=== PATIENT | female | born 1995 | race Caucasian/White ===

== ENCOUNTER 2019-12-06 13:47 | Emergency (ER) | payer OTHER, SELFPAY ==
--- NOTE | ~2019-12-06 | XR_ITS ---
EXAMINATION: XR hand RT min 3V EXAM DATE: 12/06/2019 14:07 INDICATION: Initial encounter following injury, with pain of the right hand. TECHNIQUE: Right hand frontal, lateral and oblique projections obtained and reviewed. There is no pr ior study for comparison. FINDINGS: Right metacarpal bones are unremarkable. There are no acute fractures or dislocations iden tified. There is no subcutaneous gas. The soft tissue is unremarkable. There are no radiopaque fo reign bodies. IMPRESSION: No acute osseous findings. Reviewed, dictated and finalized at location B. IMPRESSION: No acute osseous findings.
[2019-12-06 13:49] VITALS: BP 110/63; PULSE 86; RESP 16; TEMP 36.9; O2SAT 100
--- NOTE | 2019-12-06 14:02 | ED.GENADULT ---
HPI - General Adult General Chief complaint: Extremity Injury, Upper Stated complaint: HAND INJURY Time Seen by Provider: 12/06/19 14:03 Source: patient and RN notes reviewed Mode of arrival: ambulatory Limitations: no limitations History of Present Illness HPI narrative: This is a 24 years old female presents to the office for an evaluation of right hand injury prior to arrival. States, She was walking her dog and then her dog took off to run after another dog and drag her along with it. Complain of immediate pain and swollen. She tried ice prior to arrival. She did not take anything for pain. She is right-hand dominant. Tetanus is up-to-date. Related Data Home Medications Medication Instructions Recorded Confirmed amoxicillin 500 mg PO Q12H 12/06/19 12/06/19 Allergies Allergy/AdvReac Type Severity Reaction Status Date / Time No Known Allergies Allergy Verified 12/06/19 13:58 Review of Systems Review of Systems: Narrative: CONSTITUTIONAL: Denies feeling ill CARDIOVASCULAR: Denies chest pain RESPIRATORY: Denies dyspnea GASTROINTESTINAL: Denies nausea SKIN: Reports right and swollen with redness. MUSCULOSKELETAL: Reports right hand pain. Denies wrist pain NEUROLOGIC: Denies numbness or tingling. PMFSH Social History Social History (Updated 12/06/19 @ 14:03 by ANAIS Mason) Smoking status: Never smoker Comments At time of signature, I agree with nursing past medical, surgical, social and family history. There is no relevant family history pertinent to the presenting complaint. Exam Narrative: Exam Narrative: GENERAL: This is a well-nourished, well-developed patient, in no apparent distress. CARDIOVASCULAR: Regular rate and rhythm without murmurs, gallops, or rubs. RESPIRATORY: Clear to auscultation. Breath sounds equal bilaterally. No wheezes, rales, or rhonchi. NEURO: awake, alert, and oriented to person, place and time. There were no obvious focal neurologic abnormalities. Steady gait EXTREMITIES: The dorsum of right hand is diffusely swollen and tender especially around distal second metalcarpal joint. There is small skin abrasion noted on dorsal of fifth distal metalcarpal. Flexion and extension of the fingers is full and strong. Normal wrist ROM. [place] Coma Scale Eye Opening: Spontaneous 4 [place] Coma Scale Motor: Obeys Commands 6 Diann Coma Scale Verbal: Oriented 5 Course Vital Signs Vital signs: Vital Signs Temperature 98.4 F 12/06/19 13:49 Pulse Rate 86 12/06/19 13:49 Respiratory Rate 16 12/06/19 13:49 Blood Pressure 110/63 12/06/19 13:49 Pulse Oximetry 100 12/06/19 13:49 Temperature 98.4 F 12/06/19 13:49 Pulse Rate 86 12/06/19 13:49 Respiratory Rate 16 12/06/19 13:49 Blood Pressure 110/63 12/06/19 13:49 Pulse Oximetry 100 12/06/19 13:49 Medical Decision Making MDM Narrative Medical decision making narrative: Discharge instructions reviewed with patient, as well as provided in writing per nursing staff. The instructions also include specific and strict return/GO TO THE ER as well as f/u information. All questions have been answered, and the patient deny any further questions with discharge and discharge plan. Differential Diagnosis Differential Diagnosis: sprain, strain, contusion, fracture Vital Signs Vital Signs: Vital Signs Temperature 98.4 F 12/06/19 13:49 Pulse Rate 86 12/06/19 13:49 Respiratory Rate 16 12/06/19 13:49 Blood Pressure 110/63 12/06/19 13:49 Pulse Oximetry 100 12/06/19 13:49 Temperature 98.4 F 12/06/19 13:49 Pulse Rate 86 12/06/19 13:49 Respiratory Rate 16 12/06/19 13:49 Blood Pressure 110/63 12/06/19 13:49 Pulse Oximetry 100 12/06/19 13:49 Imaging Data Attestation: I personally reviewed and interpreted this imaging study as follows: Radiologist's impression: EXAMINATION: XR hand RT min 3V EXAM DATE: 12/06/2019 14:07 INDICATION: Initial encounter followi
== END 2019-12-06 14:25 | disposition home or self-care (01) ==
PROVIDERS: Emergency Provider Nurse Practitioner; PCP Internal Medicine
DX: S60.221A Contusion of right hand, initial encounter (principal); X50.0XXA Overexertion from strenuous movement or load, initial encounter; Y93.K1 Activity, walking an animal
CPT/HCPCS: 73130; 99203; G0463

== ENCOUNTER 2024-06-18 12:09 | Outpatient (RCR) | payer OTHER, MEDICAID, SELFPAY ==
[2024-06-18 15:29] LABS: Hematocrit 32.4 % (37.0-47.0); Hemoglobin 10.7 g/dL (12.0-15.0)
[2024-06-18 15:42] LABS: Glucose 1 Hour PP 50gm Dose 154 mg/dL
[2024-06-18 16:23] LABS: HIV 1/2 Ab P24 Ag Result Negative (Negative)
[2024-06-19] MEDS: RHO(D) IMMUNE GLOBULIN 300 MCG/2 ML SYRINGE IM (09:12)
== END 2024-09-16 23:59 | disposition home or self-care (01) ==
LOC: ANHLAB 12:09
PROVIDERS: PCP Internal Medicine; Visit Provider Obstetrics & Gynecology
DX: O36.0130 Maternal care for anti-D [Rh] antibodies, third trimester, not applicable or unspecified (principal)
CPT/HCPCS: 36415; 82947; 85014; 85018; 85461; 86703; 86850; 86900; 86901; 90384; 96372; G0432; J2790

== ENCOUNTER 2024-09-03 12:36 | Outpatient (RCR) | payer OTHER, SELFPAY ==
[2024-08-17 16:53] VITALS: BP 120/88; PULSE 91
[2024-08-20 12:50] VITALS: BP 115/78; PULSE 919
[2024-08-26 12:46] VITALS: BP 118/77; PULSE 90
[2024-08-26 13:00] VITALS: BP 106/74; PULSE 94
[2024-08-26 15:56] VITALS: BP 106/74
--- NOTE | ~2024-09-03 | US_ITS ---
EXAMINATION: US OB BPP wo non-stress DATE: 08/20/2024 12:45 INDICATION: Maternal gestational diabetes during third trimester of . Assess biophysical pro file. TECHNIQUE: Real-time pelvic ultrasound was performed. The interpreting radiologist was not present fo r the study. COMPARISON: None. FINDINGS: There is a single living fetus in vertex presentation. The placenta is anterior and not low-lying. F etal heart rate is 136 beats per minute (bpm). Amniotic fluid volume is subjectively normal with norm al deepest vertical pocket measurement of 6.7 cm. Biophysical profile performed by the technologist: breathing (30 sec sustained breathing in 30 minutes): 2 out of 2 movement (3 gross body movements in 30 minutes): 2 out of 2 tone (one episode of ikrhsxs-mpgkezogn-axnwics limb movement): 2 out of 2 Amniotic fluid pocket (2 cm): 2 out of 2 Total score: 8 out of 8 IMPRESSION: 1. Single living fetus in vertex presentation with heart rate of 136 bpm. 2. Biophysical profile 8 out of 8. Reviewed, dictated and finalized at location A. UNTANT CERTIFIED PUBLIC
--- NOTE | ~2024-09-03 | US_ITS ---
EXAMINATION: US OB BPP wo non-stress DATE: 08/26/2024 14:32 INDICATION: Maternal gestational diabetes during third trimester TECHNIQUE: Real-time pelvic ultrasound was performed. The interpreting radiologist was not present fo r the study. COMPARISON: 08/20/2024 FINDINGS: There is a single living fetus in vertex presentation. The placenta is anterior. heart rate is 131 beats per minute (bpm). Amniotic fluid volume is subjectively normal with normal deepest vertica l pocket measurement of 4.6 cm. Biophysical profile performed by the technologist: breathing (30 sec sustained breathing in 30 minutes): 2 out of 2 movement (3 gross body movements in 30 minutes): 2 out of 2 tone (one episode of cjljcaz-xnnhjtcvt-vrtbizi limb movement): 2 out of 2 Amniotic fluid pocket (2 cm): 2 out of 2 Total score: 8 out of 8 IMPRESSION: 1. Single living fetus in vertex presentation with heart rate of 131 bpm. 2. Biophysical profile 8 out of 8. Reviewed, dictated and finalized at location B. 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
--- NOTE | ~2024-09-03 | US_ITS ---
EXAMINATION: US OB BPP wo non-stress DATE: 09/03/2024 14:26 INDICATION: Maternal gestational diabetes TECHNIQUE: Real-time pelvic ultrasound was performed. The interpreting radiologist was not present fo r the study. COMPARISON: None. FINDINGS: There is a single living fetus in vertex presentation. The placenta is anterior. heart rate is 142 beats per minute (bpm). Amniotic fluid volume is subjectively normal with normal deepest vertica l pocket measurement of 6.2 cm. Biophysical profile performed by the technologist: breathing (30 sec sustained breathing in 30 minutes): 2 out of 2 movement (3 gross body movements in 30 minutes): 2 out of 2 tone (one episode of folkmob-npmdlcjig-ecyjyiu limb movement): 2 out of 2 Amniotic fluid pocket (2 cm): 2 out of 2 Total score: 8 out of 8 IMPRESSION: 1. Single living fetus in vertex presentation with heart rate of 142 bpm. 2. Biophysical profile 8 out of 8. Reviewed, dictated and finalized at location B. 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
[2024-09-03 13:15] VITALS: BP 121/78; PULSE 94
== END 2024-09-11 16:02 | disposition home or self-care (01) ==
LOC: ANHOBOP 12:36
PROVIDERS: PCP Internal Medicine; Visit Provider Obstetrics & Gynecology
DX: O36.0130 Maternal care for anti-D [Rh] antibodies, third trimester, not applicable or unspecified (principal); O24.419 Gestational diabetes mellitus in pregnancy, unspecified control; Z3A.36 36 weeks gestation of pregnancy; Z3A.37 37 weeks gestation of pregnancy; Z3A.38 38 weeks gestation of pregnancy
CPT/HCPCS: 59025; 76819

== ENCOUNTER 2024-09-06 16:13 | Inpatient (IN) | payer OTHER, SELFPAY ==
[2024-09-06] VITALS (11 sets, daily range): BP systolic 89–131; BP diastolic 50–88; PULSE 83–107; BMI 37.0
[2024-09-06 17:27] LABS: Basophils Percent Auto 0.2 % (0.2-1.2); Eosinophils Absolute Auto 0.1 K/mm3 (0-0.3); Eosinophils Percent Auto 0.7 % (0-4.4); Hematocrit 32.5 % (37.0-47.0); Lymphocytes Absolute Auto 1.61 K/mm3 (0.9-3.2); Lymphocytes Percent Auto 16.9 % (18.3-44.2); Mean Corpuscular HGB Conc 33.8 g/dl (32-36); Mean Corpuscular Volume 88.6 fl (80-100); Mean Platelet Volume 11.3 fl (7.4-10.4); Monocytes Absolute Auto 0.7 K/mm3 (0.1-0.6); Monocytes Percent Auto 7.3 % (2.6-8.5); Neutrophils Percent Auto 73.9 % (45.5-73.1); Platelet Count Result 213 k/mm3 (150-375); Red Blood Count 3.67 M/mm3 (4.2-5.4); Red Cell Distribution Width 13.9 % (11.5-14.5); White Blood Count 9.5 K/mm3 (4.5-10.0)
[2024-09-06] MEDS: miSOPROStol 25 MCG TABLET 50 MCG BUCCAL ×2 (17:29→21:24)
[2024-09-06 17:33] LABS: Glucose Point of Care 92 mg/dl (65-105)
--- NOTE | 2024-09-06 17:37 | LDADM ---
This patient, Diana Chiu, was admitted to Labor/Delivery/Recovery 102 on 09/06/24 at 16:13. Plans for labor, pain management and were discussed with patient. Patient/family oriented to hospital policies and general routines including ID bracelet, bed and alarms, visiting hours, pain management, procedures, bathroom and other care routines, personal items, smoking policy, room service/diet and guest tray routines, infant security routines, and visiting hours. Patient/Family are encouraged to report perceived risks to care and to ask questions if they do not understand what they are told or what they should do. See OBIX for further documentation.
[2024-09-06 17:58] LABS: Rapid Plasma Reagin Non-Reactive (NonReactive)
[2024-09-06 18:18] LABS: HIV 1/2 Ab P24 Ag Result Negative (Negative)
--- NOTE | 2024-09-06 20:32 | WPDANESEPP ---
Anes - Eval Pre Procedure Procedure: labor pain management Date/Time: 09/06/24 20:32 Surgeon: Ralph Preop Diagnosis: pain during labor Pre Op Diagnosis: IOL / GDM Patient Data Age: 29 Gender: F Height: 1.65 m Weight: 101 kg Last Vital Signs Pulse 89 09/06/24 20:01 BP 121/85 09/06/24 20:01 O2 Del Method Room Air 09/06/24 17:36 Allergies Allergy/AdvReac Type Severity Reaction Status Date / Time No Known Allergies Allergy Verified 08/13/24 12:44 Home Medications ?Medication ?Instructions ?Recorded ?Confirmed ?Type ferrous sulfate 325 mg (65 mg 325 mg PO DAILY 08/13/24 08/13/24 History iron) tablet (Feosol) insulin glargine 100 unit/mL 5 unit subcut QPM gdm 08/13/24 08/13/24 History subcutaneous solution (Lantus U-100 Insulin) vit no.95-ferrous 1 tablet PO DAILY 08/13/24 08/13/24 History fumarate 28 mg-folic acid 800 mcg tablet () Laboratory Tests 09/06/24 09/06/24 17:22 17:26 WBC 9.5 K/mm3 (4.5-10.0) RBC 3.67 L M/mm3 (4.2-5.4) Hgb 11.0 L g/dL (12.0-15.0) Hct 32.5 L % (37.0-47.0) MCV 88.6 fl (80-100) MCH 30.0 pg (26-34) MCHC 33.8 g/dl (32-36) RDW 13.9 % (11.5-14.5) Plt Count 213 k/mm3 (150-375) MPV 11.3 H fl (7.4-10.4) Immature Gran % (Auto) 1.0 H % (0-0.5) Neut % (Auto) 73.9 H % (45.5-73.1) Lymph % (Auto) 16.9 L % (18.3-44.2) [place] % (Auto) 7.3 % (2.6-8.5) Eos % (Auto) 0.7 % (0-4.4) Baso % (Auto) 0.2 % (0.2-1.2) Lymph # (Auto) 1.61 K/mm3 (0.9-3.2) [place] # (Auto) 0.7 H K/mm3 (0.1-0.6) Eos # (Auto) 0.1 K/mm3 (0-0.3) Baso # (Auto) 0.0 K/mm3 (0.0-0.1) Abs Immat Gran (auto) 0.10 H K/mm3 (0.00-0.031) Absolute Neuts (auto) 7.0 H K/mm3 (1.3-6.7) Absolute Nucleated RBC 0.000 K/mm3 (0.0-0.012) Nucleated RBC % 0.0 % (0.0-0.2) POC Capillary Glucose 92 mg/dl (65-105) RPR Non-reactive (NonReactive) HIV 1&2 Ab/P24 Ag 4thGn Negative (Negative) Blood Type AB Negative Antibody Screen Negative Patient hx anesthesia problems: none Family hx anesthesia problems: none Results Review: All pre-operative results and documents have been reviewed as part of the pre-operative evaluation. 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 History of tonsillectomy Family History Family History Grandparent Breast cancer Maternal grandmother Cervical cancer paternal grandmother Social History Social History Smoking status: Never smoker Second hand tobacco smoke exposure: No Substance use: current Do You Feel Safe in your Home?: Yes Lack of Transportation: No Lack of Food: Never True Current Housing: I Have Housing Concerned About Future Housing: No Difficulty Paying Gas/Electric Bills: No Difficulty Paying for Meds: No Currently Unemployed: No Education: Trade/Vocational Certificate Difficulty w/ Childcare or Family Care: No Spiritual care concerns: No Exam Day of Procedure 09/06/24 20:32
[2024-09-06 21:27] LABS: Glucose Point of Care 100 mg/dl (65-105)
[2024-09-07] VITALS (324 sets, daily range): BP systolic 80–141; BP diastolic 35–125; PULSE 27–164; TEMP 36.8–38.4; O2SAT 74–100
[2024-09-07] MEDS: fentaNYL CITRATE INJ (*CRX) 100 MCG/2 ML VIAL 50 MCG IV PUSH ×4 (00:59→09:19)
[2024-09-07] MEDS: miSOPROStol 25 MCG TABLET 50 MCG BUCCAL ×2 (01:33→05:33)
[2024-09-07 01:57] LABS: Glucose Point of Care 97 mg/dl (65-105)
[2024-09-07 05:40] LABS: Glucose Point of Care 90 mg/dl (65-105)
[2024-09-07] MEDS: ACETAMINOPHEN 500 MG TABLET 1000 MG PO ×2 (08:15→21:13)
[2024-09-07] MEDS: ONDANSETRON INJ 4 MG/2 ML VIAL IV PUSH (08:49)
--- NOTE | 2024-09-07 08:54 | PM.IMHP ---
H&P: HPI History of Present Illness Date/Time: 09/07/24 08:54 Chief Complaint: gestational diabetes A2 Narrative: Patient is a 29 year old female at 39w1d who presents for medical induction of labor indicated for GDMA2. Her blood glucose has been well controlled on evening lantus. Most recent EFW on 08/02 was 67%, AC 89%. She denies strong contractions, leakage of fluid, or vaginal bleeding. Good movement. Her has been otherwise uncomplicated. 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 History of tonsillectomy Family History Family History Grandparent Breast cancer Maternal grandmother Cervical cancer paternal grandmother Social History Social History Smoking status: Never smoker Second hand tobacco smoke exposure: No Substance use: current Do You Feel Safe in your Home?: Yes Lack of Transportation: No Lack of Food: Never True Current Housing: I Have Housing Concerned About Future Housing: No Difficulty Paying Gas/Electric Bills: No Difficulty Paying for Meds: No Currently Unemployed: No Education: Trade/Vocational Certificate Difficulty w/ Childcare or Family Care: No Spiritual care concerns: No Meds Home Medications and Allergies Home Medications ?Medication ?Instructions ?Recorded ?Confirmed ?Type ferrous sulfate 325 mg (65 mg 325 mg PO DAILY 08/13/24 08/13/24 History iron) tablet (Feosol) insulin glargine 100 unit/mL 5 unit subcut QPM gdm 08/13/24 08/13/24 History subcutaneous solution (Lantus U-100 Insulin) vit no.95-ferrous 1 tablet PO DAILY 08/13/24 08/13/24 History fumarate 28 mg-folic acid 800 mcg tablet () Allergies Allergy/AdvReac Type Severity Reaction Status Date / Time No Known Allergies Allergy Verified 08/13/24 12:44 Vital Signs Vital Signs - 24 hr 09/06/24 16:45 09/06/24 17:00 09/06/24 17:16 Temperature Pulse Rate 96 97 90 Blood Pressure 116/76 131/88 110/75 Pulse Oximetry Oxygen Delivery 09/06/24 17:30 09/06/24 17:36 09/06/24 18:01 Temperature Pulse Rate 90 107 H Blood Pressure 119/85 89/50 L Pulse Oximetry Oxygen Delivery Room Air 09/06/24 18:47 09/06/24 19:00 09/06/24 20:01 Temperature Pulse Rate 83 88 89 Blood Pressure 111/79 118/88 121/85 Pulse Oximetry Oxygen Delivery 09/06/24 21:01 09/06/24 22:01 09/06/24 23:01 Temperature Pulse Rate 91 91 86 Blood Pressure 128/87 109/75 109/64 Pulse Oximetry Oxygen Delivery 09/07/24 00:01 09/07/24 01:01 09/07/24 02:00 Temperature 98.6 F Pulse Rate 93 87 Blood Pressure 118/79 123/81 Pulse Oximetry Oxygen Delivery 09/07/24 02:01 09/07/24 02:54 09/07/24 02:59 Temperature Pulse Rate 88 Blood Pressure 110/66 Pulse Oximetry 98 97 Oxygen Delivery 09/07/24 03:01 09/07/24 03:04 09/07/24 03:09 Temperature Pulse Rate 84 Blood Pressure 118/86 Pulse Oximetry 97 97 Oxygen Delivery 09/07/24 03:14 09/07/24 03:19 09/07/24 03:24 Temperature Pulse Rate Blood Pressure Pulse Oximetry 98 97 96 Oxygen Delivery 09/07/24 03:29 09/07/24 03:34 09/07/24 03:39 Temperature Pulse Rate Blood Pressure Pulse Oximetry 96 96 96 Oxygen Delivery 09/07/24 03:44 09/07/24 03:49 09/07/24 03:54 Temperature Pulse Rate Blood Pressure Pulse Oximetry 97 96 96 Oxygen Delivery 09/07/24 03:59 09/07/24 04:01 09/07/24 04:04 Temperature Pulse Rate 96 Blood Pressure 116/74 Pulse Oximetry 96 96 Oxygen Delivery 09/07/24 04:09 09/07/24 04:14 09/07/24 04:19 Temperature Pulse Rate Blood Pressure Pulse Oximetry 97 96 96 Oxygen Delivery 09/07/24 04:24 09/07/24 04:29 09/07/24 04:34 Temperature Pulse Rate Blood Pressure Pulse Oximetry 96 96 96 Oxygen Delivery 09/07/24 04:39 09/07/24 04:44 09/07/24 04:51 Temperature Pulse Rate Blood Pressure Pulse Oximetry 95 96 97 Oxygen Delivery 09/07/24 04:56 09/07/24 05:01 09/07/24 05:06 Temperature Pulse Rate 95 Blood Pressure 116/92 H Pulse Oximetry 97 100 97 Oxygen Delivery 09/07/24 05:11 09/07/24 05:16 09/07/24 05:21 Temperature Pulse Rate Blood Pressure Pulse Oximetry 99 98 99 Oxygen Delivery 09/07/24 05:26 09/07/24 05:31 09/07/24 05:36 Temperature Pulse Rate Blood Pressure Pulse Oximetry 99 100 100 Oxygen Delivery 09/07/24 05:41 09/07/24 05:46 09/07/24 05:51 Temperature Pulse Rate Blood Pressure Pulse Oximetry 98 98 98 Oxygen Delivery 09/07/24 05:56 09/07/24 06:01 09/07/24 06:08 Temperature Pulse Rate Blood Pressure Pulse Oximetry 98 98 100 Oxygen Delivery 09/07/24 06:13 09/07/24 06:18 09/07/24 06:23 Temperature Pulse Rate Blood Pressure Pulse Oximetry 99 99 99 Oxygen Delivery 09/07/24 06:28 09/07/24 06:39 09/07/24 06:42 Temperature 98.3 F Pulse Rate Blood Pressure Pulse Oximetry 99 97 Oxygen Delivery 09/07/24 06:44 09/07/24 06:49 09/07/24 06:54 Temperature Pulse Rate Blood Pressure Pulse Oximetry 98 98 95 Oxygen Delivery 09/07/24 06:59 09/07/24 07:01 09/07/24 07:04 Temperature Pulse Rate 87 Blood Pressure 123/77 Pulse Oximetry 96 96 Oxygen Delivery 09/07/24 07:09 09/07/24 07:14 09/07/24 07:19 Temperature Pulse Rate Blood Pressure Pulse Oximetry 97 98 97 Oxygen Delivery 09/07/24 07:24 09/07/24 07:29 09/07/24 07:34 Temperature Pulse Rate Blood Pressure Pulse Oximetry 97 97 98 Oxygen Delivery 09/07/24 07:39 09/07/24 07:44 09/07/24 07:49 Temperature Pulse Rate Blood Pressure Pulse Oximetry 97 97 97 Oxygen Delivery 09/07/24 07:54 09/07/24 07:59 09/07/24 08:01 Temperature Pulse Rate 90 Blood Pressure 127/70 Pulse Oximetry 95 96 Oxygen Delivery 09/07/24 08:04 09/07/24 08:09 09/07/24 08:14 Temperature Pulse Rate Blood Pressure Pulse Oximetry 94 94 96 Oxygen Delivery 09/07/24 08:20 09/07/24 08:25 09/07/24 08:30 Temperature Pulse Rate Blood Pressure Pulse Oximetry 97 99 97 Oxygen Delivery 09/07/24 08:35 09/07/24 08:40 09/07/24 08:45 Temperature Pulse Rate Blood Pressure Pulse Oximetry 97 98 99 Oxygen Delivery 09/07/24 08:50 Temperature Pulse Rate Blood Pressure Pulse Oximetry 99 Oxygen Delivery Exam Const: General: comfortable and no acute distress HENMT: Mouth: Yes moist mucous membranes Neck: Neck: supple Resp: Effort & Inspection: normal respiratory effort Cardio: Rate: regular rate : Other: SVE /-3, dueñas bulb placed without issue and inflated with 50cc of normal saline Extrem: General: normal to inspection Psych: Mental Status: mental status grossly normal H&P: Results Labs Labs: Short CBC 09/06/24 Range/Units 17:22 WBC 9.5 (4.5-10.0) K/mm3 Hgb 11.0 L (12.0-15.0) g/dL Hct 32.5 L (37.0-47.0) % Plt Count 213 (150-375) k/mm3 Assessment and Plan Assessment and plan (1) Gestational diabetes: Code(s): O24.419 - Gestational diabetes mellitus in , unspecified control Status: Acute Assessment and Plan: - good glycemic control - EFW 67% on 08/02 - plan for q4 > q2 blood sugar checks (2) Encounter for induction of labor: Code(s): Z34.90 - Encounter for supervision of normal , unspecified, unspecified trimester Status: Acute Assessment and Plan: - s/p cytotec x4 - SVE 50/-3 - dueñas bulb placed and inflated without issue - plan for pitocin per protocol once cytotec is completed
[2024-09-07] MEDS: LACTATED RINGERS 1,000 ML 125 ML IV CONT ×2 (09:29→20:45)
[2024-09-07 10:21] LABS: Glucose Point of Care 101 mg/dl (65-105)
[2024-09-07] MEDS: OXYTOCIN 30 UNITS/NS 500 ML 30 UNITS/500 ML BAG IV CONT (10:43)
--- NOTE | 2024-09-07 12:34 | PM.OBPNLAB ---
Pain Control Date/time seen: 09/07/24 12:34 Pain control: epidural Pelvic Exam Dilation (cm): 2 Effacement (%): 50 station: -2 Amniotic membrane status: Ruptured (clear fluid, IUPC placed without issue) Status status: Category l Assessment and Plan Pitocin rate (mU/min): 6 Assessment: induction ongoing Plan: continuous present management
[2024-09-07 12:36] LABS: Glucose Point of Care 75 mg/dl (65-105)
[2024-09-07 16:11] LABS: Glucose Point of Care 129 mg/dl (65-105)
[2024-09-07 19:33] LABS: Glucose Point of Care 66 mg/dl (65-105)
[2024-09-07 20:16] LABS: Glucose Point of Care 81 mg/dl (65-105)
--- NOTE | 2024-09-07 21:06 | PM.OBPNLAB ---
Pain Control Date/time seen: 09/07/24 21:06 Pain control: tolerating well and epidural Pelvic Exam Dilation (cm): 6 Effacement (%): 90 station: -2 Amniotic membrane status: Leaking Comments: Band of scar tissue at external os, manually reduced; 5cm at beginning of exam, stretchy 6cm at end of exam Contractions Monitor mode: Internal Contraction frequency: 3 Contraction duration: 1 Contraction pattern: Regular Contraction intensity: Strong/Firm Status status: Category ll Comments: tachycardic but maintains moderate variability and accelerations Assessment and Plan Pitocin rate (mU/min): 6 Assessment: active labor Plan: continuous present management Comments: Temp 100.2, will give tylenol for rising maternal temp and tachycardia
--- NOTE | 2024-09-07 23:24 | P.PCNOB_ITS ---
OB - Vaginal Delivery Note Procedure Delivery date: 09/07/24 Events: Gestational Diabetes (A2) Induction method: Per Misoprostol Protocol Delivery augmentation: Rupture of Membranes, Pitocin and Other (dueñas bulb placement) Delivery monitor: External FHT and Internal Uterine Route of delivery: Episiotomy description: None Laceration Description: Periurethral (hemostatic x2) and Perineal - 2nd Degree Delivery repair: vicryl Specimen: No Quantitative Blood Loss (ml): 150 Anesthesia type: Epidural Disposition: Floor Complications: No immediate complications Narrative: See H&P and notes for details on patient's admission and labor. She progressed to complete cervical dilation and at the appropriate time began pushing. With adequate expulsive efforts by the mother, the baby's head was delivered and a turtle sign was identified. Nuchal cord was present x1. The baby's left shoulder was anterior but did not easily deliver. A shoulder dystocia was identified and relieved with Kaden position and suprapubic pressure. The anterior shoulder then delivered after 20 seconds. The posterior shoulder and the rest of the baby then delivered without difficulty. The umbilical cord was doubly clamped and cut immediately. Care of the was then assumed by the nursing staff. Rosamond Baby Date of : 09/07/24 Gestational Age by Date: 39 gender: Male Weight (pounds): 7 Weight (ounces): 10 presentation: vertex position: Left Occiput Anterior Placenta delivery description: Expressed Cord Vessel Description: 3 Vessels, Nuchal Cord (x1) and Clamped/Cut
[2024-09-07] MEDS: OXYTOCIN 30 UNITS/NS 500 ML 30 UNITS/500 ML BAG 125 UNITS IV CONT (23:50)
[2024-09-08 00:16] VITALS: BP 146/81; PULSE 105
[2024-09-08 00:31] VITALS: BP 122/82; PULSE 110
[2024-09-08] MEDS: WITCH HAZEL 40 PADS 1 PAD TOPICAL (01:12)
[2024-09-08] MEDS: BENZOCAINE 20% AER SPR (*SP) 56 GM CAN 1 SPRAY TOPICAL (01:12)
[2024-09-08] MEDS: IBUPROFEN 600 MG TABLET PO ×4 (01:13→19:30)
--- NOTE | 2024-09-08 01:29 | OBPPTRN ---
Patient transferred to post room #285 via wheelchair. Support person present. patient refuses education at this time, due to being extremely exhausted, will defer to dayshift.
[2024-09-08 01:35] VITALS: BP 135/79; PULSE 103; RESP 20; TEMP 37.3; O2SAT 100
--- NOTE | 2024-09-08 04:20 | OBPPTRN ---
Patient is more awake and willing to accept education now. Patient and mother (support person) Oriented to unit, room, information board, rooming in, admission packet and security measures. Patient verbalizes understanding.
[2024-09-08 05:49] LABS: Hemoglobin 10.4 g/dL (12.0-15.0)
[2024-09-08 06:55] VITALS: BP 112/68; PULSE 96; RESP 16; TEMP 36.3
[2024-09-08] MEDS: MULTIVIT/MIN/PREN/FOL AC/IRON TABLET 1 TAB PO (07:01)
--- NOTE | 2024-09-08 08:25 | PC.NURSE ---
Introductions were made, then consulted with patient to assess needs related to . Mother led the conversation with her?plans to feed?her infant and the?experience so far. Infant given supplementation overnight - maternal request. Mother states that she plans to breastfeed and has done plenty of research related to , she declines additional education at this time. She intends to use her own personal breast pump once she is home and declines needing assistance or education in relation to her breast pump. If questions arise, she will contact for assistance. Mother is utilizing [facility] currently and declines needing a referral. Breast feeding admission folder was provided and reviewed. Mother states that she will call with the next feeding so this RN can observe latch. She denies any breast or nipple pain at this time. Mother voiced understanding of skin to skin, stimulating with massage touch, responsive feedings, hand expressed colostrum, talking to infant to encourage if it has been 2 -2.5 hours since the start of the last , to call if does not latch, or if there is discomfort with .
--- NOTE | 2024-09-08 14:29 | WPDANLDPN2 ---
Anes-Prog Note L&D Date/Time: 09/08/24 14:29 Comfortable throughout: labor and delivery Neuraxial method: epidural Epidural/Spinal procedure site: clean & non-tender Neuro status: Neuro function grossly intact. Cardiovascular status: normal Respiratory status: normal Airway patency: baseline Mental status: baseline Post-Op hydration status: normal Vital Signs: Last Vital Signs Temp 36.3 C L 09/08/24 06:55 Pulse 96 09/08/24 06:55 Resp 16 09/08/24 06:55 BP 112/68 09/08/24 06:55 Pulse Ox 100 09/08/24 01:35 O2 Del Method Room Air 09/08/24 01:35 Pain score (VAS): 3/10 I/O: Intake & Output 09/07/24 09/08/24 09/08/24 23:59 07:59 15:59 Intake Total 1000 Output Total 150 80 Balance 850 -80 Post-procedural complaints: none Patient feedback: Patient satisfied with anesthetic care.
[2024-09-08] MEDS: RHO(D) IMMUNE GLOBULIN 300 MCG/2 ML SYRINGE IM (17:49)
[2024-09-08 19:30] VITALS: BP 130/86; PULSE 101; RESP 18; TEMP 37.1; O2SAT 99
[2024-09-09] MEDS: IBUPROFEN 600 MG TABLET PO (04:10)
--- NOTE | 2024-09-09 08:05 | PC.NURSE ---
Consulted with mother concerning needs and she shared her ability to independently latch infant optimally without pain. Mother is feeding appropriately for growth of and understands stimulating to eat if needed. Infant has had appropriate feedings in the last 24 hours meets the outcomes for weight, output, blood sugar and jaundice at this time. Reinforced understanding of milk production, transition of milk, signs of adequate intake, transition of stool, prevention/relief of engorgement, plugged ducts, mastitis, responsive watching for feeding cues, the different methods of stimulating to breastfeed 1-3 hours after the start of the last feeding, community resources, and when to call a provider using the resource of the feeding sheet along with the mom and baby guide. Mother voiced understanding of the information shared, is confident to continue effectively her infant at home, when to call for assistance, denies any additional assistance or education at this time. Reported to the Primary RN.
--- NOTE | 2024-09-09 08:28 | P.PNOB_ITS ---
OB - PN: Subj Subjective Date/time seen: 09/09/24 08:28 Patient comments: no complaints, pain well controlled and tolerating diet OB - PN: Obj Data Labs 09/08/24 05:44 Labs: Laboratory Results - last 24 hr 09/08/24 07:10 Blood Type AB Negative Antibody Screen Negative Screen Negative Baby's Blood Type A pos Baby's MELISSA Negative Doses of RhIg Required 1 OB - PN A/P Plan day: 2 Plan: routine care and discharge home Time Spent With Patient Time: Total time spent is greater than 50% in coordination of care (as documented) at patient's floor/unit and/or counseling patient: Exam 2 Const: General: comfortable and no acute distress Resp: Effort & Inspection: normal respiratory effort Auscultation: no rales, no rhonchi and no wheezes Cardio: Rate: regular rate Heart sounds: no click, no murmurs and no rubs GI: GI Palp: Yes Soft to palpation and No Tenderness to palpation present (GI) Auscultation: normal bowel sounds Extrem: General: normal to inspection, no pedal edema and no calf tenderness
--- NOTE | 2024-09-09 08:28 | PM.OBDSVD ---
DS: Admitting Diagnosis Discharge Date 09/09/24 Admitting Diagnosis term pregnacy DS: Discharge Diagnosis Discharge Diagnosis (1) Term delivered: Code(s): O80 - Encounter for full-term uncomplicated delivery Status: Acute OB - DS: Summary OB Procedures : None OB Procedures Intrapartum: Spontaneous Vag Delivery OB Procedures: : None Peripartum Data Laceration Description: Periurethral (hemostatic x2) and Perineal - 2nd Degree Episiotomy description: None Time Spent with Patient Time attestation: Total time spent providing and/or coordinating discharge services: DS: Data Data Completed and Pending Labs on day of discharge: Labs from last 24 hours 09/08/24 07:10 Blood Type AB Negative Antibody Screen Negative Screen Negative Baby's Blood Type A pos Baby's MELISSA Negative Doses of RhIg Required 1 Discharge Plan Discharge Discharging Clinician: Cristian Byrd Patient Disposition: Home, Self-Care Activity: pelvic rest Diet: regular Patient Instructions: Antibiotic Form Patient Language: Armenian Stand Alone Forms: General Discharge Information Follow-up/Referrals: Cristian Byrd MD [Physician] - Discharge Medications: Continued PNV [id number]-ferrous fumarate-FA [] 28 mg iron- 800 mcg tablet 1 tablet PO DAILY insulin glargine [Lantus U-100 Insulin] 100 unit/mL solution 5 unit subcut QPM ferrous sulfate [Feosol] 325 mg (65 mg iron) tablet 325 mg PO DAILY Date of admission: 09/06/24 16:13 Primary Care Provider: Consuelo,Judah Shukla Admitting Provider: Hemanth Rosas Attending physician on admission: Hemanth Rosas Condition: Stable
[2024-09-09 09:15] VITALS: BP 110/71; PULSE 93; RESP 18; TEMP 36.4; O2SAT 98
[2024-09-09] MEDS: DOCUSATE SODIUM 100 MG CAPSULE PO (09:16)
[2024-09-09] MEDS: ACETAMINOPHEN 325 MG TABLET 650 MG PO (09:16)
[2024-09-09] MEDS: MULTIVIT/MIN/PREN/FOL AC/IRON TABLET 1 TAB PO (09:16)
--- NOTE | 2024-09-09 11:58 | PC.NURSE ---
Patient viewed the discharge video Mother & Baby Care, The First Two Weeks . Patient was given the opportunity and encouraged to ask questions. Patient verbalized understanding of information shared and has been given the mother/baby guide for home reference.
--- OUTSIDE RECORDS SUMMARY | 2024-09-13 03:16 | XMS_ITS | Data Portability ---
Author Organization [facility] Address [address] [place] [place] [address] Care Team Providers Care Product Responsibility Liaison Name Role Phone SABRINA MOTT Primary Care Provider [phone] Assessment Encounter Date Assessment Date Assessment LastModified by Organization Details LastModified Time 08/26/2024 08/26/2024 Patient is ___weeks . Discussed plan. [email or web address] Not available 08/26/2024 15:57:28 09/03/2024 09/03/2024 Not seen due to urgent patient care Not available 09/03/2024 18:32:15 Plan of Treatment Reminders Order Date Submit Date Provider Last Modified By Organization Details Last Modified Time Details Appointments None record ed. Lab None record ed. Referral None record ed. Procedures None record ed. Surgeries None record ed. Imaging non-st ress test 024 08/13/20 chad [email or web address] [place], [address], [place], [address], 05:56:58 Medication Orders None record ed. Patient TargetsNo targets recorded. Patient InstructionsNo instructions recorded. Reason for Referral None Reported. Results Created Date Observation Date Name Description Value Unit Range Abnormal Flag Note LastModifiedBy Organization Detail LastModifiedTime 08/20/20 24 08/20/2024 CULTU RE: GROUP B STREP SCREE N, REFLE X SUSCE PTIBI LITY result report SEE RESULT S BELOW Test: Cultu re: Group B Strep , Refle x Susce ptibi lity ([facility]/ [facility]/K H/[facility] ) Speci men Sourc e: Vagin a/Rec christi Speci men Type: Vagin al/Re ctal Speci men Date: 08/20 1422 Resul t Date: 08/23 1404 Resul t Statu s: Final resul t Abnor mal: No Resul ting Lab: [facility] [address] [facility] [address] Tel: CULTU RE ----- ----- ----- --- No Group B strep isola carmina at 2 days (sarah ctive broth enhan cemen t) Not Available [facility] (Lab) [address], [place], [address], 08/23/2024 15:08:12 08/02/20 24 08/02/2024 US, obste tric, follo w-up No observ ation record ed. [email or web address] [place] [address], [place], [address], 08/02/2024 10:13:50 08/02/20 24 08/02/2024 US, tj rosales, follo w-up No observ ation record ed. [address], [place], [address], 08/05/2024 20:29:18 08/13/20 24 08/13/2024 non-s tress test No observ ation record ed. [email or web address] [place] [address], [place], [address], 08/13/2024 12:48:12 08/13/20 24 08/13/2024 US, tj rosales bioph ysica l profi le No observ ation record ed. [email or web address] [address], [facility], [place], [address], 08/14/2024 23:23:31 08/13/20 24 08/13/2024 US, obstkeenan rosales, bioph ysica l profi le + non-s tress test No observ ation record ed. [facility] [address], [place], [address], 08/13/2024 17:26:10 08/17/20 24 08/17/2024 non-s tress test No observ ation record ed. [address], [place], [address], 08/19/2024 11:56:26 08/21/20 24 08/21/2024 non-s tress test No observ ation record ed. [address], [place], [address], 08/31/2024 11:25:22 08/26/20 24 08/26/2024 non-s tress test No observ ation record ed. [email or web address] Not Available 2023 11:08:41 09/03/19 25 09/03/2024 non-s tress test No observ ation record ed. [address], [place], [address], 09/06/2024 13:42:56 Result Notes None recorded. Problems Name Problem SNOMED Code Status Onset Date Resolution Date Notes Provider Name and Address Organization Details Recorded Time 30623832 Active 2023 Ashley Lucian [facility], [facility] 4 14:41:40 Marijuana user 395322207 Active +UDS Osiris Lopez [facility] 4 14:12:40 Gestational diabetes mellitus 22876512 Active BS QID, serial growth 12/4 - Lantus 5 units @HS Larissa valdes [facility], [facility] 4 15:11:40 Gestational diabetes mellitus 76810286 Active BS QID, serial growth 12/4 - Lantus 5 units @HS Larissa Rausch eiamara mendez, [facility] 15:11:40 Problem Notes None recorded. Procedures Surgical History Date Name Laterality Status Provider Name and Address Organization Details Recorded Time 09/01/19 19 Date of Last Pap Smear completed [facility] 02/27/2024 14:32:44 09/01/19 04 procedure on knee completed [facility] 02/27/2024 14:36:05 09/01/19 00 Tonsillectomy completed [facility] 02/27/2024 14:36:17 Imaging Results Imaging Date Name Status LastModified by Organiz ation Details LastModified Time 08/02/2024 US, obstetric, follow-up completed [email or web address] [address], [place], [address], 08/02/2024 10:13:50 08/02/2024 US, obstetric, follow-up completed [email or web address] [address], [place], [address], 08/05/2024 20:29:18 08/13/2024 non-stress test completed [email or web address] [place] [address] [address], [place], [address], 08/13/2024 12:48:12 08/13/2024 US, obstetric, biophysical profile completed [email or web address] [address], [place], [address], 08/14/2024 23:23:31 08/13/2024 US, obstetric, biophysical profile + non-stress test completed [facility] [address], [place], [address], 08/13/2024 17:26:10 08/17/2024 non-stress test completed [place] [address], [place], [address], 08/19/2024 11:56:26 08/21/2024 non-stress test completed [place] [address], [place], [address], 08/31/2024 11:25:22 08/26/2024 non-stress test completed [email or web address] [address] Informati on not available 08/31/2024 11:08:41 09/03/2024 non-stress test completed [place] [id number] [facility] [address], [place], [address], 09/06/2024 13:42:56 Procedure Notes None recorded. Medical Equipment None Reported. Allergies No known drug allergies Medications Name Sig Start Date Stop Date Status Note LastModified by Organization Details LastModified Time cefadroxi l 500 mg capsule take 1 capsule by oral route every 12 hours for 10 days 07/26 completed Prescrib ed Elsewher e: No Locat ion: [facility] odify By: steve ghosh DateTime : 07/17/20 16 02:00:00 PM Not Available Not Available Not Available OneTouch Ultra Test strips USE TO TEST 4 TIMES A DAY active Not Available Not Available No t Available June FE 09/20 (28) 1 mg-20 mcg (21)/75 mg (7) tablet TAKE 1 TABLET BY ORAL ROUTE EVERY DAY 10/16 completed Prescrib ed Elsewher e: No Locat ion: [facility] odify By: lawanda cortes DateTime : 09/09/19 17 09:23:26 AM Not Available Not Available Not Available iron active Not Available Not Availa ble Not Available active Not Available Not Avai lable Not Available Lantus Solostar U-100 Insulin 100 unit/mL (3 mL) subcutane ous pen inject 5 units every day by subcutan eous route at bedtime 2023 active Not Available Not Available Not Avai lable Lo Loestrin Fe 1 mg-10 mcg (24)/10 mcg (2) tablet take 1 tablet by oral route every day 03/20 completed Prescrib ed Elsewher e: Yes [facility] By: deandre cortes DateTime : 08/09/20 14 12:00:00 PM Not Available Not Available Not Available TRUEplus Pen Needle 31 gauge x 1/4 USE WITH INSULIN INJECTIO NS DAILY active Not Available Not Available No t Available OneTouch Ultra2 Meter USE TO TEST 4 TIMES A DAY active Not Available Not Available No t Available OneTouch Delica Plus Lancet 33 gauge USE TO TEST 4 TIMES A DAY active Not Available Not Available No t Available Abrysvo (PF) 120 mcg/0.5 mL intramusc ular solution pharmacy to give injectio n active Not Available Not Available No t Available Vitals Date Recorded Body height Body mass index (BMI) Body weight Systolic blood pressure Diastolic blood pressure Provider Name and Address Organization Details Last Updated DateTime 08/13/2024 165.1 cm 37.1 kg/m2 913049.1 g 109 mm[Hg] 75 mm[Hg] [facility] 12:40:27 Date Recorded Body height Body mass index (BMI) Body weight Systolic blood pressure Diastolic blood pressure Provider Name and Address Organization Details Last Updated DateTime 08/20/2024 165.1 cm 37.8 kg/m2 848345.4 7 g 114 mm[Hg] 76 mm[Hg] [facility] 4 14:21:20 Date Recorded Body weight Systolic blood pressure Diastolic blood pressure Provider Name and Address Organization Details Last Updated DateTime 08/26/2024 987258.652 73 g 116 mm[Hg] 79 mm[Hg] Liz Ortega [facility] 08/26/2024 15:59:25 Social History Question Answer Notes LastModified by Organizat ion Details LastModified Time Tobacco Smoking Status Never [facility]oker [facility] 02/27/2024 14:35:43 What Is Your Level Of Alcohol Consumption? Occasional Information not available 02/27/2024 Are You Blind Or Do You Have Difficulty Seeing? No Information n ot available 02/27/2024 What Is Your Level Of Caffeine Consumption? Occasional [email or web address] Information not available 04/20/2024 In The 14 Days Before Symptom Onset, Have You Had Close Contact With A Laboratory-confirm ed COVID-19 While That Case Was Ill? No Information n ot available 02/27/2024 In The 14 Days Before Symptom Onset, Have You Had Close Contact With A Person Who Is Under Investigation For COVID-19 While That Person Was Ill? No Information not available 02/27/2024 Have You Been To An Area Known To Be High Risk For COVID-19? No Information not available 02/27/2024 Are You Deaf Or Do You Have Serious Difficulty Hearing? No Information not available 02/27/2024 What Type Of Diet Are You Following? REGULAR [email or web address] Information n ot available 04/20/2024 Have You Ever Been Counseled For Unhealthy Alcohol Use? No [email or web address] Information not available 04/20/2024 Do You Have Smoke And Carbon Monoxide Detectors In Your Home? Yes [email or web address] Information not available 04/20/2024 Do You Use Any Illicit Or Recreational Drugs? No [email or web address] Information not available 04/20/2024 Do You Use Sunscreen Routinely? Yes [email or web address] Information not available 04/20/2024 Has Tobacco Cessation Counseling Been Provided? No [email or web address] Information not available 04/20/2024 Do You Or Have You Ever Used Any Other Forms Of Tobacco Or Nicotine? No [email or web address] Information not available 04/20/2024 Sex: Unknown Functional Status Question Answer Note LastModified by Organizat ion Details LastModified Time Do you have difficulty walking or climbing stairs? No Information not available 02/27/2024 Are you able to walk? YESWOREST Information not available 02/27/2024 Are you able to care for yourself? Yes Information not available 02/27/2024 Do you have difficulty dressing or bathing? No Information not available 02/27/2024 What is your exercise level? Occasional Information not available 04/20/2024 Mental Status None recorded. Family History Relationship Description Onset Age of this Age Resolved Age Notes LastModified by Organization Details LastModified Time Paternal Grandmother Malignant tumor of breast Not available 2023 14:34:11 Paternal Grandmother Mental disorder Not available 2023 14:35:05 Maternal Grandmother Malignant tumor of cervix Not available 2023 14:34:17 Maternal Grandmother Malignant tumor of ovary [email or web address] Not available 04/20 17:22:27 Paternal Grandfather Malignant tumor of colon Not available 2023 14:34:24 Paternal Grandfather Hypertensive disorder Not available 2023 14:34:37 Paternal Grandfather Mental disorder Not available 2023 14:35:05 Paternal Grandfather Chronic hepatitis [email or web address] Not available 04/20 17:22:55 Mother Hypertensive disorder Not available 2023 14:34:37 Mother Mental disorder Not available 2023 14:35:05 Father Mental disorder Not available 2023 14:35:05 Unspecified Relation Seizure disorder FOB MOTHER [email or web address] Not available 04/20/2024 15:26:35 Notes:Maternal grandmother: Ovarian cancer, Cervical cancer Paternal grandfather: Hepatitis Paternal grandmother: Cancer, breast Medical History Condition Response Allergies (Food, seasonal, environmental ) N Other N Breast Cancer N Drug/Latex Allergies/Reactions N Blood Transfusion N Lung Disease N Dermatologic Disorders N Defects or Inherited Disease N Breast Problem N Gestational Diabetes N Hematologic disorders N Anesthesia Complications N History of STI N Deep Vein Thrombosis N Polycystic ovary syndrome N Anxiety Disorder N Autoimmune disease N Arthritis N Polyps N Infertility N History of abnormal pap N Acid Reflux (GERD) N Cancer N Varicosities N Stroke N Neurologic/Epilepsy N Endometriosis N High Cholesterol N Fibromyalgia N Headaches N Kidney Disease N Heart Problems N Kidney or Bladder Problems N Thyroid Problems N GI Problems N Eating Disorder N Anemia Y Art (IVF or FET) N Psychiatric Illness N Ovarian Cancer N Diabetes N Pulmonary (TB, Asthma) N Hepatitis/Liver Disease N No Past Medical History N Eczema N Urinary Tract Infection N Abuse/Domestic Violence N Asthma N Trauma/Violence N Depression/ depression N Heart Disease N Pre-Eclampsia N Hypertension N Osteoporosis N Thrombophilias N Gynecological History Statement/Question Response Flow Moderate Date of Last Mammogram Date of LMP 12/09/2023 Was last menstrual period normal Y STIs/STDs N HPV Vaccine Y Current Control Method Are cycles usually normal Y Sexually Active? Y Menses Monthly Y Date of DEXA bone scan Age of first menstrual cycle 12 Date of Last Pap Smear 09/01/2018 Sexual Problems? N LMP Definite Obstetrics History GPAL:G 1 P 0 0 0 0 Type Value Living 0 Total 1 Immunizations Vaccine Type Date Status Note Provider Nam e and Address Organization Details Recorded Time Tdap 08/13/2024 completed Phoebe mendez, [facility] 08/20/2024 14:17:19 Influenza, MDCK, trivalent, PF 08/13/2024 completed Phoebe mendez [facility] 08/20/2024 14:17:19 Past Encounters Encounter ID Performer Location Encounter Start Date Encounter Closed Date Diagnosis/Indication Diagnosis SNOMED-CT Code Diagnosis ICD10 Code Diagnosis Note Edith Shabazz [place] [address],[place] [address] 02/27/2024 11:43:38 02/27/2024 13:10:28 [id number] Cristian Byrd MD [place] [address],[place] [address] 02/27/2024 14:13:42 02/27/2024 15:16:46 Routine care 074270955 Z34.90 this patient is a 28-year-ol d multiparou s female at 12 weeks' gestation who presents for initial care. She has a history of term vaginal births. Her medical, surgical, obstetric history is unremarkab le. She is vaccinated . She was given precaution s recommenda tions for . We talked about vaccines in . Talked about care in detail. She is having genetic testing. She had a normal 12 week ultrasound . To begin routine care. [id number] Graciela Owen [place] [address],[facility] [place] [address] 03/08/2024 17:13:31 03/08/2024 17:57:51 screening 417771497 Z36.82 Z3A.13 Z36.87 [id number] Cristian Byrd MD [place] [address],[place] [address] 03/26/2024 09:29:33 03/26/2024 10:32:21 Routine care 783629679 Z34.90 [id number] Cristian Byrd MD [place] [address],[place] [address] 04/20/2024 15:26:30 04/21/2024 09:35:21 [id number] KESHA FIORE MD [place] [address],[place] [address] 04/20/2024 15:27:00 04/20/2024 17:56:47 Routine care 834997252 Z34.02 [id number] MD Jenn BUCHANAN [address],[place] [address] 05/21/2024 12:17:34 05/21/2024 14:26:36 Routine care 886985666 Z34.02 - continue PNV- 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) [id number] KESHA FIORE MD [place] [address],[place] [address] 06/18/2024 12:11:01 06/28/2024 04:03:48 Routine care 226711863 Z34.02 - continue PNV [id number] KESHA FIORE MD [place] [address],[place] [address] 07/02/2024 09:17:01 07/02/2024 10:04:18 Routine care 828941856 Z34.02 - continue PNV- 3h GTT today [id number] KESHA FIORE MD [place] [address],[place] [address] 07/16/2024 09:24:25 07/16/2024 11:05:08 Gestational diabetes mellitus 98268705 O24.419 Gestation period, 31 weeks 84314258 Z3A.31 - continue pNV [id number] Graciela Owen [place] [address],[place] [address] 08/02/2024 09:14:02 08/02/2024 10:35:44 Gestational diabetes mellitus 38317461 O24.410 Z3A.34 [id number] KESHA FIORE MD [place] [address],[place] [address] 08/04/2024 13:56:29 08/04/2024 15:06:05 Active or passive immunization 403198267 Z23 - Rx sent for RSV vaccine Gestationa l diabetes mellitus class A2 00160048 O24.414 - will start lantus at nighttime- weekly testing Gestation period, 34 weeks 28404659 Z3A.34 - continue PNV [id number] Phoebe Johnson [place] [address],[place] [address] 08/13/2024 10:58:31 08/13/2024 13:02:17 Gestational diabetes mellitus 72583763 O24.419 [id number] KESHA FIORE MD [place] [address],[place] [address] 08/13/2024 10:58:55 08/13/2024 17:08:31 Gestational diabetes mellitus class A2 97873984 O24.414 - controlled on lantus 5u qHS- continue weekly testing- plan for delivery by 39w6d Gestation period, 35 weeks 61714929 Z3A.35 [id number] Edith Mele [place] [address],[place] [address] 08/13/2024 10:59:07 08/13/2024 16:49:41 Gestational diabetes mellitus 59249077 O24.414 Z3A.35 [id number] KESHA FIORE MD [place] [address],[place] [address] 08/20/2024 14:06:49 08/20/2024 15:06:34 Gestational diabetes mellitus class A2 30903870 O24.414 - controlled on lantus 5u qHS- continue weekly testing- plan for delivery by 39w6d Gestation period, 36 weeks 47039446 Z3A.36 - GBS collected today- continue PNV [id number] Cristian Byrd MD [place] [address],[place] [address] 08/26/2024 15:32:53 08/26/2024 16:23:00 Routine care 830609414 Z34.90 [id number] KESHA FIORE MD [place] [address] [address] 09/03/2024 15:31:52 09/03/2024 18:32:23 Health Concerns Section Related Observation LastModified by Organization Detai ls LastModified Time None Recorded Concern Status LastModified by Organization Details LastModified Time None Recorded Advance Directives Directive None Recorded Payers Encounter Date Sequence Insurance Name Policy Number Policy Mehta Covered Member ID Mehta Member ID Guarantor Name 08/13/2024 1 [facility] (MEDICAID HMO) [id number] [employer] [id number] [employer] 08/13/2024 1 [facility] (MEDICAID HMO) [id number] [employer] [id number] [employer] 08/20/2024 1 [facility] (MEDICAID HMO) [id number] [employer] [id number] [employer] 08/26/2024 1 [facility] (MEDICAID HMO) [id number] [employer] [id number] [employer] 09/03/2024 1 [facility] (MEDICAID HMO) [id number] [employer] [id number] [employer] OBGyn Episode Ob Episode Information Episode Created Date Number of Fetuses Patient Bloodtype Patient rh Status Prepregnancy Weight lbs Domestic Partner Domestic Partner Phone Father Name 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 24 1 AB Negative 194 OPEN Fetus Data First Name Last Name Admitted to NICU Weight (g) Sex Living Outcome Pediatric Complications Fetus ID Race Codes Race Delivery Type [id number] Problems Problem Notes Problem Name Start Date End Date Resolution Snomed Code Not e Marijuana user 567516359 +UDS Gestational diabetes mellitus 13487143 BS QID, serial ojqvas83/4 - Lantus 5 units @HS Tomas Calculation Initial Tomas Date Initial Exam Date Initial Exam Provider Initial Ultrasound Date Last Menstrual Period Date Ultra Sound Weeks Gestation 09/13/2024 02/27/2024 02/27/2024 12/08/2023 11 Eighteen To Twenty Week Tomas Update Ultra Sound Date Fundal Height At Umbil Quickening Date Ultra Sound Latest Weeks Gestation Final Tomas Confirmed By Final Tomas Confirmed Date Final Tomas Date Ultra Sound Latest Days Gestation 0 [email or web address] 02/27/2024 09/13/19 25 0 Pre-uyen Flowsheet Flowsheet Date 02/27/2024 Newton Score Blood Edema Fundus Height Fundus Units Glucose Ketones Leukocytes Nitrite Labor Signs Protein Cervic Dilation Cervic Effacement Cervic Station Type Weight in lbs Pre/Post Dialysis Refused Weight 194.523947591379 BP Diastolic BP Location Tested BP Systolic BP Type 77 109 Fetus Heart Rate Present A 155 Fetus Movement Comments this patient is a 28-year-ol d multiparous female at 12 weeks' gestation who presents for initial care. She has a history of term vaginal births. Her medical, surgical, obstetric history is unremarkable. She is vaccinated. She was given precautions recommendations for . We talked about vaccines in . Talked about care in detail. She is having genetic testing. She had a normal 12 week ultrasound. To begin routine care. patient has an unremarkable medical, surgical, obstetric history. Flowsheet Date 03/08/2024 Newton Score Blood Edema Fundus Height Fundus Units Glucose Ketones Leukocytes Nitrite Labor Signs Protein Cervic Dilation Cervic Effacement Cervic Station Type Weight in lbs Pre/Post Dialysis Refused BP Diastolic BP Location Tested BP Systolic BP Type Fetus Heart Rate Present Fetus Movement Comments Flowsheet Date 03/26/2024 Newton Score Blood Edema Fundus Height Fundus Units Glucose Ketones Leukocytes Nitrite Labor Signs Protein Cervic Dilation Cervic Effacement Cervic Station neg none none trace Type Weight in lbs Pre/Post Dialysis Refused 192.225529074898 BP Diastolic BP Location Tested BP Systolic BP Type 83 L arm 119 sitting Fetus Heart Rate Present A 145 Fetus Movement A No Comments Pateint c/o of nausea resolv ing, no cramping, no bleeding Flowsheet Date 04/20/2024 Newton Score Blood Edema Fundus Height Fundus Units Glucose Ketones Leukocytes Nitrite Labor Signs Protein Cervic Dilation Cervic Effacement Cervic Station Type Weight in lbs Pre/Post Dialysis Refused BP Diastolic BP Location Tested BP Systolic BP Type Fetus Heart Rate Present Fetus Movement Comments Flowsheet Date 04/20/2024 Newton Score Blood Edema Fundus Height Fundus Units Glucose Ketones Leukocytes Nitrite Labor Signs Protein Cervic Dilation Cervic Effacement Cervic Station trace Type Weight in lbs Pre/Post Dialysis Refused 196.101490678251 BP Diastolic BP Location Tested BP Systolic BP Type 77 115 Fetus Heart Rate Present A 159 Fetus Movement A No Comments Patient states that is havin g some swelling and carpal tunnel pain. No movement yet. No cramping or bleeding. Anatomy complete and normal, EFW 76%. Normal raphael. RTC 4 weeks for routine care. Flowsheet Date 05/21/2024 Newton Score Blood Edema Fundus Height Fundus Units Glucose Ketones Leukocytes Nitrite Labor Signs Protein Cervic Dilation Cervic Effacement Cervic Station neg none none trace Type Weight in lbs Pre/Post Dialysis Refused 203.68518187985 BP Diastolic BP Location Tested BP Systolic BP Type 69 L arm 100 sitting Fetus Heart Rate Present A 140 Fetus Movement A Yes Comments Good movement. No cram ping or bleeding. Discussed labs and GCT for next visit, will go to [place] for labs and Rhogam. Carpal tunnel improving. 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 RTC 4 weeks. Flowsheet Date 06/18/2024 Newton Score Blood Edema Fundus Height Fundus Units Glucose Ketones Leukocytes Nitrite Labor Signs Protein Cervic Dilation Cervic Effacement Cervic Station neg none none trace Type Weight in lbs Pre/Post Dialysis Refused 213.086085531893 BP Diastolic BP Location Tested BP Systolic BP Type 80 L arm 113 sitting Fetus Heart Rate Present A 140 Fetus Movement A Yes Comments C/o of lower abdomen pain, m ild. Good movement, no cramping or bleeding. Orders given for GCT and labs with Rhogam. Discussed tdap vaccine. RTC 2 weeks. Flowsheet Date 07/02/2024 Newton Score Blood Edema Fundus Height Fundus Units Glucose Ketones Leukocytes Nitrite Labor Signs Protein Cervic Dilation Cervic Effacement Cervic Station neg none none trace Type Weight in lbs Pre/Post Dialysis Refused Weight 214.718183904870 BP Diastolic BP Location Tested BP Systolic BP Type 76 L arm 110 sitting Fetus Heart Rate Present A 135 Fetus Movement A Yes Comments Patient c/o of some contract ions and swelling in feet. Good movement. 3h GTT today, discussed anemia and starting Fef supplement. Will recheck in 1 month. RTC 2 weeks. Flowsheet Date 07/16/2024 Newton Score Blood Edema Fundus Height Fundus Units Glucose Ketones Leukocytes Nitrite Labor Signs Protein Cervic Dilation Cervic Effacement Cervic Station neg none none trace Type Weight in lbs Pre/Post Dialysis Refused Weight 215.329143347591 BP Diastolic BP Location Tested BP Systolic BP Type 80 L arm 126 sitting Fetus Heart Rate Present A 140 Fetus Movement A Yes Comments Doing well, good movem ent. No cramping or bleeding. Fasting glucose elevated over the past week, rare postprandial excursions. Will check x1 more week then possibly start PM insulin. Discussed RSV vaccine. Discussed preadmission. RTC 2 weeks for OB appt and growth US. Flowsheet Date 08/02/2024 Newton Score Blood Edema Fundus Height Fundus Units Glucose Ketones Leukocytes Nitrite Labor Signs Protein Cervic Dilation Cervic Effacement Cervic Station Type Weight in lbs Pre/Post Dialysis Refused BP Diastolic BP Location Tested BP Systolic BP Type Fetus Heart Rate Present Fetus Movement Comments Flowsheet Date 08/04/2024 Newton Score Blood Edema Fundus Height Fundus Units Glucose Ketones Leukocytes Nitrite Labor Signs Protein Cervic Dilation Cervic Effacement Cervic Station neg none Type Weight in lbs Pre/Post Dialysis Refused Weight 224.981309213222 BP Diastolic BP Location Tested BP Systolic BP Type 79 L arm 121 sitting Fetus Heart Rate Present A 140 Fetus Movement A Yes Comments Patient c/o Librado Bean, s tates in some pelvic pain. No ctx, LOF, or VB. Good movement. Fasting glucose still elevated, will start nighttime insulin now. Will also start weekly testing. EFW 67%, normal RAPHAEL. RTC 1 week. Flowsheet Date 08/13/2024 Newton Score Blood Edema Fundus Height Fundus Units Glucose Ketones Leukocytes Nitrite Labor Signs Protein Cervic Dilation Cervic Effacement Cervic Station Type Weight in lbs Pre/Post Dialysis Refused BP Diastolic BP Location Tested BP Systolic BP Type Fetus Heart Rate Present Fetus Movement Comments Flowsheet Date 08/13/2024 Newton Score Blood Edema Fundus Height Fundus Units Glucose Ketones Leukocytes Nitrite Labor Signs Protein Cervic Dilation Cervic Effacement Cervic Station neg none Type Weight in lbs Pre/Post Dialysis Refused Weight 223.581745001513 BP Diastolic BP Location Tested BP Systolic BP Type 75 L arm 109 sitting Fetus Heart Rate Present A Present Fetus Movement A Yes Comments Doing well, no issues. Good movement. No cramping or bleeding. Glucose well controlled, one elevated fasting level since starting lantus. BPP 06/10 today. Discussed GBS for next visit. RTC 1 week. Flowsheet Date 08/13/2024 Newton Score Blood Edema Fundus Height Fundus Units Glucose Ketones Leukocytes Nitrite Labor Signs Protein Cervic Dilation Cervic Effacement Cervic Station Type Weight in lbs Pre/Post Dialysis Refused BP Diastolic BP Location Tested BP Systolic BP Type Fetus Heart Rate Present Fetus Movement Comments Flowsheet Date 08/20/2024 Newton Score Blood Edema Fundus Height Fundus Units Glucose Ketones Leukocytes Nitrite Labor Signs Protein Cervic Dilation Cervic Effacement Cervic Station neg none 0cm 50% -3 Type Weight in lbs Pre/Post Dialysis Refused Weight 227.7115630833 BP Diastolic BP Location Tested BP Systolic BP Type 76 L arm 114 sitting Fetus Heart Rate Present A Present Fetus Movement A Yes Comments Good movement. No ctx, LOF, VB. NST/BPP at [place], 06/10. [place] for GDMA2 on 09/06 in PM. GBS collected today. RTC 1 week. Flowsheet Date 08/26/2024 Newton Score Blood Edema Fundus Height Fundus Units Glucose Ketones Leukocytes Nitrite Labor Signs Protein Cervic Dilation Cervic Effacement Cervic Station Type Weight in lbs Pre/Post Dialysis Refused 229.401933838735 BP Diastolic BP Location Tested BP Systolic BP Type 79 L arm 116 sitting Fetus Heart Rate Present A 134 Fetus Movement A Yes Comments Reassuring testing ,, no complaints, no problems, routine care, no contractions, no vaginal bleeding, no loss of fluid, no cramping Flowsheet Date 09/03/2024 Newton Score Blood Edema Fundus Height Fundus Units Glucose Ketones Leukocytes Nitrite Labor Signs Protein Cervic Dilation Cervic Effacement Cervic Station Type Weight in lbs Pre/Post Dialysis Refused BP Diastolic BP Location Tested BP Systolic BP Type Fetus Heart Rate Present Fetus Movement Comments Menstrual History Last Menstrual Date Menses Monthly On Bcp Conception Prior Menses Frequency Hcg Plus Date Menarche Onset Age 0412/08/2023 Genetic Screening And Infection History Question Response Note Mental Retardation/Autism false Patient's Age Will Be 35 Years Or Older At Estim ated Date of Delivery false Thalassemia (Nigerien, Serbian, Mediterranean, Or Background): MCV < 80 false Neural Tube Defect (Meningomyelocele, Spina Bifi da, Or Anencephaly) false Congenital Heart Defect false Down Syndrome false Fernando-Sachs (eg, Baptist, Cajun, Chinese-[place]) f alse Genna Disease false Sickle Cell Disease Or Trait () false Hemophilia Or Other Blood Disorders false Muscular Dystrophy false Cystic Fibrosis false Coal's Chorea false Intellectual Disability/Autism false If Yes, Was Person Tested For Fragile X? false Other Inherited Genetic Or Chromosomal Disorder false Maternal Metabolic Disorder (eg, Type 1 Diabetes , PKU) false Patient Or Baby's Father Had A Child With Defects Not Listed Above false Recurrent Loss, Or A Stillbirth false Medications (including Suppl ements, Vitamins, Herbs, OTC Drugs), Illicit/Recreational Drugs, Alcohol false If Yes, Agent(s) And Strength/Dosage false Any Other Genetic History false Live With Someone With TB Or Exposed To TB false Patient Or Partner Has History Of Genital Herpes false Rash Or Viral Illness Since Last Menstrual Perio d false History Of STD, Gonorrhea, Chlamydia, HPV, Syphi lis false Other Infection History false History of HIV false History of Hepatitis false Prior GBS-infected child false Hemoglobinopathy Or Carrier false Other Structural Defect false Recent Travel History Outside of Country false Delivery Information Delivery Date Delivery Type Labor Anesthesia Weeks Gestation Incision Type Labor Labor Length Hrs Delivered By Post Complications Tubal Sterilization Discharge Date Comments Discharge Information Feeding Method Contraceptive Method Maternal HG B and HCT Levels
--- OUTSIDE RECORDS SUMMARY | 2024-09-13 03:16 | XMS_ITS | Continuity of Care Document ---
Author Organization 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 Discussed plan. [email or web address] Not available 08/26/2024 15:57:28 Plan of Treatment Reminders Order Date Submit Date Provider Last Modified By Organization Details Last Modified Time Details Appointments None record ed. Lab None record ed. Referral None record ed. Procedures None record ed. Surgeries None record ed. Imaging None record ed. Medication Orders None record ed. Patient TargetsNo targets recorded. Patient InstructionsNo instructions recorded. Reason for Referral None Reported. Results Created Date Observation Date Name Description Value Unit Range Abnormal Flag Note LastModifiedBy Organization Detail LastModifiedTime 02/27/2002/27/2024 US, obste tric, 1st trime ster No observ ation record ed. MILTON [address], [place], [address], 03/04/2024 23:04:35 03/08/20 24 03/08/2024 US, obste tric, nucha l trans lucen cy No observ ation record ed. [email or web address] Rosalie [address], [place], [address], 03/08/2024 18:13:20 03/08/20 24 03/08/2024 US, obste tric, 1st trime ster No observ ation record ed. [email or web address] Rosalie [address], [place], [address], 03/08/2024 18:13:12 03/08/20 24 03/08/2024 US, obste tric, nucha l trans lucen cy No observ ation record ed. [email or web address] [address], [place], [address], 03/08/2024 20:58:25 04/20/20 24 04/20/2024 US, obste tric, follo w-up No observ ation record ed. [email or web address] [address], [place], [address], 04/21/2024 17:06:55 08/02/20 24 08/02/2024 US, obste tric, follo w-up No observ ation record ed. [email or web address] Rosalie [address], [place], [address], 08/02/2024 10:13:50 08/02/20 24 08/02/2024 US, obste tric, follo w-up No observ ation record ed. [email or web address] [address], [place], [address], 08/05/2024 20:29:18 08/13/20 24 08/13/2024 non-s tress test No observ ation record ed. [email or web address] Rosalie [address], [place], [address], 08/13/2024 12:48:12 08/13/2008/13/2024 US, donalde tric, bioph ysica l profi le No observ ation record ed. [email or web address] [address], [place], [address], 08/14/2024 23:23:31 08/13/20 24 08/13/2024 US, obste tric, bioph ysica l profi le + non-s tress test No observ ation record ed. [facility] [address], [place], [address], 08/13/2024 17:26:10 08/17/20 24 08/17/2024 non-s tress test No observ ation record ed. [address] [address], [place], [address], 08/19/2024 11:56:26 08/21/20 24 08/21/2024 non-s tress test No observ ation record ed. [address] [address], [place], [address], 08/31/2024 11:25:22 08/26/20 24 08/26/2024 non-s tress test No observ ation record ed. [email or web address] Not Available 2023 11:08:41 09/03/19 25 09/03/2024 non-s tress test No observ ation record ed. [address] [address], [place], [address], 09/06/2024 13:42:56 Result Notes None recorded. Problems Name Problem SNOMED Code Status Onset Date Resolution Date Notes Provider Name and Address Organization Details Recorded Time 56331297 Active 2023 Ashley Epstein [facility], [facility] 4 14:41:40 Marijuana user 117628033 Active +UDS Osiris Lopez [facility], [facility] 4 14:12:40 Gestational diabetes mellitus 23720377 Active BS QID, serial growth 12/4 - Lantus 5 units @HS Larissa Miracle chloéamara null, [facility] 4 15:11:40 Gestational diabetes mellitus 63680784 Active BS QID, serial growth 12/4 - Lantus 5 units @HS Larissa valdes null, [facility] 4 15:11:40 Problem Notes None recorded. Procedures Surgical History Date Name Laterality Status Provider Name and Address Organization Details Recorded Time 09/01/19 19 Date of Last Pap Smear completed [facility] 02/27/2024 14:32:44 09/01/19 04 procedure on knee completed [facility] 02/27/2024 14:36:05 09/01/19 00 Tonsillectomy completed [facility] 02/27/2024 14:36:17 Imaging Results None recorded. Procedure Notes None recorded. Medical Equipment None Reported. Allergies No known drug allergies Medications Name Sig Start Date Stop Date Status Note LastModified by Organization Details LastModified Time cefadroxi l 500 mg capsule take 1 capsule by oral route every 12 hours for 10 days 07/26 completed [facility] ed Elsewher e: No Locat ion: [facility] odify By: steve ghosh DateTime : 07/17/20 16 02:00:00 PM Not Available Not Available Not Available OneTouch Ultra Test strips USE TO TEST 4 TIMES A DAY active Not Available Not Available No t Available June FE 09/20 (28) 1 mg-20 mcg (21)/75 mg (7) tablet TAKE 1 TABLET BY ORAL ROUTE EVERY DAY 10/16 completed [facility] ed Elsewher e: No Locat ion: [facility]ify By: [email or web address] Cassidy cortes DateTime : 09/09/19 17 09:23:26 AM [...] Prescrib ed Elsewher e: Yes Loca tion: [facility] M odmichael By: deandre cortes DateTime : 08/09/20 14 [...] No t Available Vitals Date Recorded Body weight Systolic blood pressure Diastolic blood pressure Provider Name and Address Organization Details Last Updated DateTime 08/26/2024 660110.652 73 g 116 mm[Hg] 79 mm[Hg] Liz Ortega [facility] 08/26/2024 15:59:25 Social History Question Answer Notes LastModified by Organizat ion Details LastModified Time Tobacco Smoking Status Never Smoker Ashley mendez, [facility] 02/27/2024 14:35:43 What Is Your Level Of Alcohol Consumption? Occasional Information not available 02/27/2024 Are You Blind Or Do You Have Difficulty Seeing? No Information n ot available 02/27/2024 What Is Your Level Of Caffeine Consumption? Occasional [email or web address] Information not available 04/20/2024 In The 14 [...] Type Of Diet Are You Following? REGULAR [email or web address] Information n ot available 04/20/2024 Have You Ever Been Counseled For Unhealthy Alcohol Use? No [email or web address] Information not available 04/20/2024 Do You Have Smoke And Carbon Monoxide Detectors In Your Home? Yes [email or web address] Information not available 04/20/2024 Do You Use Any Illicit Or Recreational Drugs? No [email or web address] Information not available 04/20/2024 Do You Use Sunscreen Routinely? Yes [email or web address] Information not available 04/20/2024 Has Tobacco Cessation Counseling Been Provided? No [email or web address] Information not available 04/20/2024 Do You Or Have You Ever Used Any Other Forms Of Tobacco Or Nicotine? No [email or web address] Information not available 04/20/2024 Sex: Unknown Functional [...] 02/27/2024 What is your exercise level? Occasional [email or web address] Information not available 04/20/2024 Mental Status None recorded. Family History Relationship Description Onset Age of this Age Resolved Age Notes LastModified by Organization Details LastModified Time Paternal Grandmother Malignant tumor of breast Not available 2023 14:34:11 Paternal Grandmother Mental disorder Not available 2023 14:35:05 Maternal Grandmother Malignant tumor of cervix Not available 2023 14:34:17 Maternal Grandmother Malignant tumor of ovary [email or web address] Not available 04/20 17:22:27 Paternal Grandfather Malignant tumor of colon Not available 2023 14:34:24 Paternal Grandfather Hypertensive disorder Not available 2023 14:34:37 Paternal Grandfather Mental disorder Not available 2023 14:35:05 Paternal Grandfather Chronic hepatitis Not available 04/20 17:22:55 Mother Hypertensive disorder Not available 2023 14:34:37 Mother Mental disorder Not available 2023 14:35:05 Father Mental disorder Not available 2023 14:35:05 Unspecified Relation Seizure disorder FOB MOTHER Not available 04/20/2024 15:26:35 Notes:Maternal grandmother: Ovarian cancer, Cervical cancer Paternal grandfather: Hepatitis Paternal grandmother: Cancer, breast Medical History Condition Response Other N Blood Transfusion N Dermatologic Disorders N Gestational Diabetes N Anxiety Disorder N Autoimmune disease N Arthritis N Polyps N Infertility N Acid Reflux (GERD) N Cancer N Varicosities N Stroke N Neurologic/Epilepsy N Fibromyalgia N Headaches N Kidney Disease N Heart Problems N Kidney or Bladder Problems N Eating Disorder N Art (IVF or FET) N Hepatitis/Liver Disease N No Past Medical History N Urinary Tract Infection N Asthma N Trauma/Violence N Thrombophilias N Allergies (Food, seasonal, environmental ) N Breast Cancer N Drug/Latex Allergies/Reactions N Lung Disease N Defects or Inherited Disease N Breast Problem N Hematologic disorders N Anesthesia Complications N History of STI N Deep Vein Thrombosis N Polycystic ovary syndrome N History of abnormal pap N Endometriosis N High Cholesterol N Thyroid Problems N GI Problems N Anemia Y Psychiatric Illness N Ovarian Cancer N Diabetes N Pulmonary (TB, Asthma) N Eczema N Abuse/Domestic Violence N Depression/ depression N Heart Disease N Pre-Eclampsia N Hypertension N Osteoporosis N Gynecological History Statement/Question Response Flow Moderate [...] Immunizations Vaccine Type Date Status Note Provider Yvan hussein and Address Organization Details Recorded Time Tdap 08/13/2024 completed Phoebe Johnson [facility] 08/20/2024 14:17:19 Influenza, MDCK, trivalent, PF 08/13/2024 completed Phoebe Johnson [facility] 08/20/2024 14:17:19 Past Encounters Encounter ID Performer Location Encounter Start Date Encounter Closed Date Diagnosis/Indication Diagnosis SNOMED-CT Code Diagnosis ICD10 Code Diagnosis Note [id number] Graciela Owen [facility] [address],[place] [address] 08/02/2024 09:14:02 08/02/2024 10:35:44 Gestational diabetes mellitus 91613818 O24.410 Z3A.34 [id number] KESHA FIORE MD [facility] [address],[place] [address] 08/04/2024 13:56:29 08/04/2024 15:06:05 Active or passive immunization 321819415 Z23 - Rx sent for RSV vaccine Gestationa l diabetes mellitus class A2 25603956 O24.414 - will start lantus at nighttime- weekly testing Gestation period, 34 weeks 76384283 Z3A.34 - continue PNV [id number] Phoebe Johnson [facility] [address],[place] [address] 08/13/2024 10:58:31 08/13/2024 13:02:17 Gestational diabetes mellitus 98736085 O24.419 [id number] KESHA FIORE MD [facility] [address],[place] [address] 08/13/2024 10:58:55 08/13/2024 17:08:31 Gestational diabetes mellitus class A2 04916788 O24.414 - controlled on lantus 5u qHS- continue weekly testing- plan for delivery by 39w6d Gestation period, 35 weeks 31307661 Z3A.35 [id number] Edith Shabazz [facility] [address],[place] [address] 08/13/2024 10:59:07 08/13/2024 16:49:41 Gestational diabetes mellitus 18676262 O24.414 Z3A.35 [id number] KESHA FIORE MD Ros[facility]ie [address],[place] [address] 08/20/2024 14:06:49 08/20/2024 15:06:34 Gestational diabetes mellitus class A2 87716327 O24.414 - controlled on lantus 5u qHS- continue weekly testing- plan for delivery by 39w6d Gestation period, 36 weeks 89154787 Z3A.36 - GBS collected today- continue PNV [id number] Cristian Byrd MD [facility] [address] [address] 08/26/2024 15:32:53 08/26/2024 16:23:00 Routine care 079716987 Z34.90 Health Concerns Section Related Observation LastModified by Organization Detai ls LastModified Time None Recorded Concern Status LastModified by Organization Details LastModified Time None Recorded Payers Encounter Date Sequence Insurance Name Policy Number Policy Mehta Covered Member ID Mehta Member ID Guarantor Name 08/26/2024 1 [facility] (MEDICAID HMO) [id number] Diana Chiu [id number] Diana Chiu OBGyn Episode Ob Episode Information Episode Created Date Number of Fetuses Patient Bloodtype Patient rh Status Prepregnancy Weight lbs Domestic Partner Domestic Partner Phone Father Name Film Process Operator Status 02/27/20 24 1 AB Negative 194 OPEN Fetus Data First Name Last Name Admitted to NICU Weight (g) Sex Living Outcome Pediatric Complications Fetus ID Race Codes Race Delivery Type [id number] Problems Problem Notes Problem Name Start Date End Date Resolution Snomed Code Not e Marijuana user 531622957 +UDS Gestational diabetes mellitus 88679388 BS QID, serial hhxids41/4 - Lantus 5 units @[facility] Tomas Calculation [...] Weight in lbs Pre/Post Dialysis Refused Weight 194.911639504751 BP Diastolic BP Location Tested BP Systolic [...] Type Weight in lbs Pre/Post Dialysis Refused 192.920707898491 BP Diastolic BP Location Tested BP Systolic [...] Type Weight in lbs Pre/Post Dialysis Refused 196.740176004697 BP Diastolic BP Location Tested BP Systolic [...] Type Weight in lbs Pre/Post Dialysis Refused 203.62645561649 BP Diastolic BP Location Tested BP Systolic BP Type 69 L arm 100 sitting Fetus Heart Rate Present A 140 Fetus Movement A Yes Comments Good movement. No cram ping or bleeding. Discussed labs and GCT for next visit, will go to [place] for labs and Rhogam. Carpal tunnel improving. 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 RTC 4 weeks. Flowsheet Date 06/18/2024 Newton Score Blood Edema Fundus Height Fundus Units Glucose Ketones Leukocytes Nitrite Labor Signs Protein Cervic Dilation Cervic Effacement Cervic Station neg none none trace Type Weight in lbs Pre/Post Dialysis Refused 213.292055425155 BP Diastolic BP Location Tested BP Systolic [...] Weight in lbs Pre/Post Dialysis Refused Weight 214.292652336638 BP Diastolic BP Location Tested BP Systolic [...] Weight in lbs Pre/Post Dialysis Refused Weight 215.573121514306 BP Diastolic BP Location Tested BP Systolic [...] Weight in lbs Pre/Post Dialysis Refused Weight 224.096062860182 BP Diastolic BP Location Tested BP Systolic [...] Weight in lbs Pre/Post Dialysis Refused Weight 223.293835619528 BP Diastolic BP Location Tested BP Systolic BP Type 75 L arm 109 sitting Fetus Heart Rate Present A Present Fetus Movement A Yes Comments Doing well, no issues. Good movement. No cramping or bleeding. Glucose well controlled, one elevated fasting level since starting lantus. BPP 10/10 today. Discussed GBS for next visit. RTC [...] Weight in lbs Pre/Post Dialysis Refused Weight 227.8827730377 BP Diastolic BP Location Tested BP Systolic BP Type 76 L arm 114 sitting Fetus Heart Rate Present A Present Fetus Movement A Yes Comments Good movement. No ctx, LOF, VB. NST/BPP at [place], 06/10. [place] for GDMA2 on 09/06 in PM. GBS collected today. RTC 1 week. Flowsheet Date 08/26/2024 Newton Score Blood Edema Fundus Height Fundus Units Glucose Ketones Leukocytes Nitrite Labor Signs Protein Cervic Dilation Cervic Effacement Cervic Station Type Weight in lbs Pre/Post Dialysis Refused 229.434735934047 BP Diastolic BP Location Tested BP Systolic [...] Estim ated Date of Delivery false Thalassemia (Citizen Of [place], Maltese, Mediterranean, Or Background): MCV < 80 false Neural Tube Defect (Meningomyelocele, Spina Bifi da, Or Anencephaly) false Congenital Heart Defect false Down Syndrome false Fernando-Sachs (eg, Quaker, Cajun, German-[place]) f alse Genna Disease false Sickle Cell Disease Or Trait () false Hemophilia Or Other Blood Disorders false Muscular Dystrophy false Cystic Fibrosis false [place]'s Chorea false Intellectual Disability/Autism false If Yes, [...]
--- OUTSIDE RECORDS SUMMARY | 2024-09-13 03:16 | XMS_ITS | Continuity of Care Document ---
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 Plan of Treatment Reminders Order Date Submit [...] Abnormal Flag Note LastModifiedBy Organization Detail LastModifiedTime 02/27/20 24 02/27/2024 US, obste tric, 1st trime ster No observ ation record ed. MILTONRUBY [address] [facility], [place], [address], 03/04/2024 23:04:35 03/08/2003/08/2024 US, obste tric, nucha l trans lucen cy No observ ation record ed. [email or web address] [facility] [address], [place], [address], 03/08/2024 18:13:20 03/08/20 24 03/08/2024 US, obstkeenan tric, 1st trime ster No observ ation record ed. [email or web address] [facility] [address], [place], [address], 03/08/2024 18:13:12 03/08/20 24 03/08/2024 US, obste tric, nucha l trans lucen cy No observ ation record ed. [email or web address] [address], [place], [address], 03/08/2024 20:58:25 04/20/20 24 04/20/2024 US, obste tric, follo w-up No observ ation record ed. [address], [place], [address], 04/21/2024 17:06:55 08/02/20 24 08/02/2024 US, obste tric, follo w-up No observ ation record ed. [email or web address] [facility] [address], [place], [address], 08/02/2024 10:13:50 08/02/20 24 08/02/2024 US, obste tric, follo w-up No observ ation record ed. [email or web address] [address], [place], [address], 08/05/2024 20:29:18 08/13/20 24 08/13/2024 non-s tress test No observ ation record ed. [email or web address] [facility] [address], [place], [address], 08/13/2024 12:48:12 08/13/20 24 08/13/2024 US, obste tric, bioph ysica l profi le No observ ation record ed. [email or web address] [address], [place], [address], 08/14/2024 23:23:31 08/13/20 24 08/13/2024 US, obste tric, bioph ysica l profi le + non-s tress test No observ ation record ed. [email or web address] [facility] [address], [place], [address], 08/13/2024 17:26:10 08/17/20 24 08/17/2024 non-s tress test No observ ation record ed. [address] [place] [address], [place], [address], 08/19/2024 11:56:26 08/21/20 24 08/21/2024 non-s tress test No observ ation record ed. [address] [address], [place], [address], 08/31/2024 11:25:22 08/26/20 24 08/26/2024 non-s tress test No observ ation record ed. [email or web address] Not Available 2023 11:08:41 09/03/19 25 09/03/2024 non-s tress test No observ ation record ed. [address] [address], [place], [address], 09/06/2024 13:42:56 Result Notes None recorded. Problems Name Problem SNOMED Code Status Onset Date Resolution Date Notes Provider Name and Address Organization Details Recorded Time 56668120 Active 2023 Ashley Epstein [facility], [facility] 4 14:41:40 Marijuana user 891763975 Active +UDS Osiris Lopez [facility], [facility] 4 14:12:40 Gestational diabetes mellitus 28307319 Active BS QID, serial growth 12/4 - Lantus 5 units @HS Larissa valdes null, [facility] 4 15:11:40 Gestational diabetes mellitus 32763667 Active BS QID, serial growth 12/4 - Lantus 5 units @HS Larissa Rausch eier null, [facility] 4 15:11:40 Problem Notes None recorded. Procedures Surgical History Date Name Laterality Status Provider Name and Address Organization Details Recorded Time 09/01/19 19 Date of Last Pap Smear completed [facility] 02/27/2024 14:32:44 09/01/19 04 procedure on knee completed [facility] 02/27/2024 14:36:05 09/01/19 00 Tonsillectomy completed [facility] 02/27/2024 14:36:17 Imaging Results None recorded. Procedure Notes None recorded. Medical Equipment None Reported. Allergies No known drug allergies Medications Name Sig Start Date Stop Date Status Note LastModified by Organization Details LastModified Time cefadroxi l 500 mg capsule take 1 capsule by oral route every 12 hours for 10 days 07/26 completed Prescrib ed Elsewher e: No Locat ion: [facility] odify By: steve ghosh DateTime : 07/17/20 16 02:00:00 PM Not Available Not Available Not Available OneTouch Ultra Test strips USE TO TEST 4 TIMES A DAY active Not Available Not Available No t Available June FE 09/20 (28) 1 mg-20 mcg (21)/75 mg (7) tablet TAKE 1 TABLET BY ORAL ROUTE EVERY DAY 10/16 completed [facility] ed Elsewher e: No [facility] By: lawanda cortes DateTime : 09/09/19 [...] Prescrib ed Elsewher e: Yes [facility] By: deandre cortes DateTime : 08/09/20 [...] Updated DateTime 08/20/2024 165.1 cm 37.8 kg/m2 939521.4 7 g 114 mm[Hg] 76 mm[Hg] Phoebe Johnson [facility] 14:21:20 Social History Question Answer Notes LastModified by Organizat ion Details LastModified Time Tobacco Smoking Status Never Smoker Ashley Lucian mendez, [facility] 02/27/2024 14:35:43 What Is Your Level Of Alcohol Consumption? Occasional Information not available 02/27/2024 Are You Blind Or Do You Have Difficulty Seeing? No Information n ot available 02/27/2024 What Is Your Level Of Caffeine Consumption? Occasional [email or web address] Information not available 04/20/2024 In The 14 [...] Type Of Diet Are You Following? REGULAR Information n ot available 04/20/2024 Have You Ever Been Counseled For Unhealthy Alcohol Use? No [email or web address] Information not available 04/20/2024 Do You Have Smoke And Carbon Monoxide Detectors In Your Home? Yes [email or web address] Information not available 04/20/2024 Do You Use Any Illicit Or Recreational Drugs? No [email or web address] Information not available 04/20/2024 Do You Use Sunscreen Routinely? Yes [email or web address] Information not available 04/20/2024 Has Tobacco Cessation Counseling Been Provided? No [email or web address] Information not available 04/20/2024 Do You Or Have You Ever Used Any Other Forms Of Tobacco Or Nicotine? No [email or web address] Information not available 04/20/2024 Sex: Unknown Functional [...] 02/27/2024 What is your exercise level? Occasional [email or web address] Information not available 04/20/2024 Mental Status None recorded. Family History Relationship Description Onset Age of this Age Resolved Age Notes LastModified by Organization Details LastModified Time Paternal Grandmother Malignant tumor of breast Not available 2023 14:34:11 Paternal Grandmother Mental disorder Not available 2023 14:35:05 Maternal Grandmother Malignant tumor of cervix Not available 2023 14:34:17 Maternal Grandmother Malignant tumor of ovary [email or web address] Not available 04/20 17:22:27 Paternal Grandfather Malignant tumor of colon Not available 2023 14:34:24 Paternal Grandfather Hypertensive disorder Not available 2023 14:34:37 Paternal Grandfather Mental disorder Not available 2023 14:35:05 Paternal Grandfather Chronic hepatitis [email or web address] Not available 04/20 17:22:55 Mother Hypertensive disorder Not available 2023 14:34:37 Mother Mental disorder Not available 2023 14:35:05 Father Mental disorder Not available 2023 14:35:05 Unspecified Relation Seizure disorder FOB MOTHER Not available 04/20/2024 15:26:35 Notes:Maternal grandmother: Ovarian cancer, Cervical cancer Paternal grandfather: Hepatitis Paternal grandmother: Cancer, breast Medical History Condition Response Allergies (Food, seasonal, environmental ) N Other N Drug/Latex Allergies/Reactions N Breast Cancer N Blood Transfusion N Lung Disease N [...] Neurologic/Epilepsy N Endometriosis N High Cholesterol N Headaches N Fibromyalgia N Kidney Disease N Heart Problems N Thyroid Problems N Kidney or Bladder Problems N GI Problems N Eating Disorder [...] Details Recorded Time Tdap 08/13/2024 completed Phoebe mendez [facility] 08/20/2024 14:17:19 Influenza, MDCK, trivalent, PF 08/13/2024 completed Phoebe mendez [facility] 08/20/2024 14:17:19 Past Encounters Encounter ID Performer Location Encounter Start Date Encounter Closed Date Diagnosis/Indication Diagnosis SNOMED-CT Code Diagnosis ICD10 Code Diagnosis Note [id number] Graciela Owen [facility] [address],[place] [address] 08/02/2024 09:14:02 08/02/2024 10:35:44 Gestational diabetes mellitus 85871917 O24.410 Z3A.34 [id number] KESHA FIORE MD [facility] [address],[place] [address] 08/04/2024 13:56:29 08/04/2024 15:06:05 Active or passive immunization 897015953 Z23 - Rx sent for RSV vaccine Gestationa l diabetes mellitus class A2 49926795 O24.414 - will start lantus at nighttime- weekly testing Gestation period, 34 weeks 82850264 Z3A.34 - continue PNV [id number] Phoebe Johnson [facility] [address],[place] [address] 08/13/2024 10:58:31 08/13/2024 13:02:17 Gestational diabetes mellitus 16421817 O24.419 [id number] KESHA FIORE MD [facility] [address],[place] [address] 08/13/2024 10:58:55 08/13/2024 17:08:31 Gestational diabetes mellitus class A2 30094604 O24.414 - controlled on lantus 5u qHS- continue weekly testing- plan for delivery by 39w6d Gestation period, 35 weeks 60852421 Z3A.35 [id number] [facility] [address],[place] [address] 08/13/2024 10:59:07 08/13/2024 16:49:41 Gestational diabetes mellitus 94341559 O24.414 Z3A.35 [id number] KESHA FIORE MD [facility] [address],[place] [address] 08/20/2024 14:06:49 08/20/2024 15:06:34 Gestational diabetes mellitus class A2 40123549 O24.414 - controlled on lantus 5u qHS- continue weekly testing- plan for delivery by 39w6d Gestation period, 36 weeks 35408799 Z3A.36 - GBS collected today- continue PNV Health Concerns Section Related Observation LastModified by Organization Detai ls LastModified Time None Recorded Concern Status LastModified by Organization Details LastModified Time None Recorded Payers Encounter Date Sequence Insurance Name Policy Number Policy Mehta Covered Member ID Mehta Member ID Guarantor Name 08/20/2024 1 [facility] (MEDICAID HMO) [id number] [id number] [facility] OBGyn Episode Ob Episode Information Episode Created Date Number of Fetuses Patient Bloodtype Patient rh Status Prepregnancy Weight lbs Domestic Partner Domestic Partner Phone Father Name Board Turner Status 02/27/20 24 1 AB Negative 194 OPEN Fetus Data First Name Last Name Admitted to NICU Weight (g) Sex Living Outcome Pediatric Complications Fetus ID Race Codes Race Delivery Type [id number] Problems Problem Notes Problem Name Start Date End Date Resolution Snomed Code Not e Marijuana user 855414736 +UDS Gestational diabetes mellitus 97778308 BS QID, serial xiqgrs19/4 - Lantus 5 units @[facility] Tomas Calculation [...] Weight in lbs Pre/Post Dialysis Refused Weight 194.886724773205 BP Diastolic BP Location Tested BP Systolic [...] Type Weight in lbs Pre/Post Dialysis Refused 192.861403192196 BP Diastolic BP Location Tested BP Systolic [...] Type Weight in lbs Pre/Post Dialysis Refused 196.894160921430 BP Diastolic BP Location Tested BP Systolic [...] Type Weight in lbs Pre/Post Dialysis Refused 203.23579589528 BP Diastolic BP Location Tested BP Systolic BP Type 69 L arm 100 sitting Fetus Heart Rate Present A 140 Fetus Movement A Yes Comments Good movement. No cram ping or bleeding. Discussed labs and GCT for next visit, will go to [facility] for labs and Rhogam. Carpal tunnel improving. 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 RTC 4 weeks. Flowsheet Date 06/18/2024 Newton Score Blood Edema Fundus Height Fundus Units Glucose Ketones Leukocytes Nitrite Labor Signs Protein Cervic Dilation Cervic Effacement Cervic Station neg none none trace Type Weight in lbs Pre/Post Dialysis Refused 213.886347149440 BP Diastolic BP Location Tested BP Systolic [...] Weight in lbs Pre/Post Dialysis Refused Weight 214.807311530600 BP Diastolic BP Location Tested BP Systolic [...] Weight in lbs Pre/Post Dialysis Refused Weight 215.551208957127 BP Diastolic BP Location Tested BP Systolic [...] Weight in lbs Pre/Post Dialysis Refused Weight 224.406062868738 BP Diastolic BP Location Tested BP Systolic BP Type 79 L arm 121 sitting Fetus Heart Rate Present A 140 Fetus Movement A Yes Comments Patient c/o [place] Bean, s tates in some pelvic pain. [...] Weight in lbs Pre/Post Dialysis Refused Weight 223.245237945242 BP Diastolic BP Location Tested BP Systolic [...] Weight in lbs Pre/Post Dialysis Refused Weight 227.7277909280 BP Diastolic BP Location Tested BP Systolic BP Type 76 L arm 114 sitting Fetus Heart Rate Present A Present Fetus Movement A Yes Comments Good movement. No ctx, LOF, VB. NST/BPP at [facility], 06/10. MIL for GDMA2 on 09/06 in PM. GBS collected today. RTC 1 week. Flowsheet Date 08/26/2024 Newton Score Blood Edema Fundus Height Fundus Units Glucose Ketones Leukocytes Nitrite Labor Signs Protein Cervic Dilation Cervic Effacement Cervic Station Type Weight in lbs Pre/Post Dialysis Refused 229.946819540447 BP Diastolic BP Location Tested BP Systolic [...] Estim ated Date of Delivery false Thalassemia ([place], [place]er, Mediterranean, Or Background): MCV < 80 false Neural Tube Defect (Meningomyelocele, Spina Bifi da, Or Anencephaly) false Congenital Heart Defect false Down Syndrome false Fernando-Sachs (eg, Yarsani, Cajun, Mongolian-Crucible) f alse Genna Disease false Sickle Cell Disease Or Trait () false Hemophilia Or Other Blood Disorders false Muscular Dystrophy false Cystic Fibrosis false Freeburn's Chorea false Intellectual Disability/Autism false If Yes, [...]
--- OUTSIDE RECORDS SUMMARY | 2024-09-13 03:16 | XMS_ITS | Continuity of Care Document ---
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 MILTON De Jesus [address], [place], [address], 03/04/2024 23:04:35 03/08/20 24 03/08/2024 US, obste tric, nucha l trans lucen cy No observ ation record ed. [email or web address] [place] [address], [place], [address], 03/08/2024 18:13:20 03/08/2003/08/2024 US, obste tric, 1st trime ster No observ ation record ed. [email or web address] [place] [address], [place], [address], 03/08/2024 18:13:12 03/08/20 24 03/08/2024 US, obste tric, nucha l trans lucen cy No observ ation record ed. [email or web address] [facility] [address], [place], [address], 03/08/2024 20:58:25 04/20/20 24 04/20/2024 US, obste tric, follo w-up No observ ation record ed. [email or web address] [facility] [address], [place], [address], 04/21/2024 17:06:55 08/02/20 24 08/02/2024 US, obste tric, follo w-up No observ ation record ed. [email or web address] [place] [address], [place], [address], 08/02/2024 10:13:50 08/02/2008/02/2024 US, donalde tric, follo w-up No observ ation record ed. [facility] [address], [place], [address], 08/05/2024 20:29:18 08/13/20 24 08/13/2024 non-s tress test No observ ation record ed. [email or web address] [place] [address], [place], [address], 08/13/2024 12:48:12 08/13/2008/13/2024 US, tj rosales, bioph ysica l profi le No observ ation record ed. [email or web address] [address] [address], [place], [address], 08/14/2024 23:23:31 12/13/08/13/2024 US, obste tric, bioph ysica l profi le + non-s tress test No observ ation record ed. [facility] [address], [place], [address], 08/13/2024 17:26:10 08/17/20 24 08/17/2024 non-s tress test No observ ation record ed. [address] [facility], [place], [address], 08/19/2024 11:56:26 08/21/20 24 08/21/2024 non-s tress test No observ ation record ed. [address] [address], [place], [address], 08/31/2024 11:25:22 08/26/20 24 08/26/2024 non-s tress test No observ ation record ed. [email or web address] Not Available 2023 11:08:41 09/03/19 25 09/03/2024 non-s tress test No observ ation record ed. [address] [address], [place], [address], 09/06/2024 13:42:56 Result Notes None recorded. Problems Name Problem SNOMED Code Status Onset Date Resolution Date Notes Provider Name and Address Organization Details Recorded Time 50564175 Active 2023 Ashley Epstein [facility], [facility] 4 14:41:40 Marijuana user 519977110 Active +UDS Osiris Lopez [facility] 4 14:12:40 Gestational diabetes mellitus 61695079 Active BS QID, serial growth 12/4 - Lantus 5 units @[facility] Larissa Delongender luevanoer null, [facility] 4 15:11:40 Gestational diabetes mellitus 01686570 Active BS QID, serial growth 12/4 - Lantus 5 units @[facility] Larissa valdes null, [facility] 4 15:11:40 Problem Notes None recorded. Procedures Surgical History Date Name Laterality Status Provider Name and Address Organization Details Recorded Time 09/01/19 19 Date of Last Pap Smear completed [facility] 02/27/2024 14:32:44 09/01/19 04 procedure on knee completed [facility] 02/27/2024 14:36:05 09/01/19 00 Tonsillectomy completed [facility] 02/27/2024 14:36:17 Imaging Results None recorded. Procedure Notes None recorded. Medical Equipment None Reported. Allergies No known drug allergies Medications Name Sig Start Date Stop Date Status Note LastModified by Organization Details LastModified Time cefadroxi l 500 mg capsule take 1 capsule by oral route every 12 hours for 10 days 07/26 completed Prescrib ed Elsewher e: No Locat ion: [facility] [address] odify By: steve ghosh DateTime : 07/17/20 16 02:00:00 PM Not Available Not Available Not Available OneTouch Ultra Test strips USE TO TEST 4 TIMES A DAY active Not Available Not Available No t Available June FE 09/20 (28) 1 mg-20 mcg (21)/75 mg (7) tablet TAKE 1 TABLET BY ORAL ROUTE EVERY DAY 10/16 completed [facility] ed Elsewher e: No Locat ion: [facility] M odify By: [email or web address] Cassidy cortes DateTime : 09/09/19 17 09:23:26 [...] Prescrib ed Elsewher e: Yes Loca tion: [facility] Haylie narayan By: deandre cortes DateTime : 08/09/20 14 [...] Available Not Available No t Available Vitals None Recorded Social History Question Answer Notes LastModified by Organizat ion Details LastModified Time Tobacco Smoking Status Never Smoker Ashley Epstein [facility] 02/27/2024 14:35:43 What Is Your Level Of Alcohol Consumption? Occasional Information not available 02/27/2024 Are You Blind Or Do You Have Difficulty Seeing? No Information n ot available 02/27/2024 What Is Your Level Of Caffeine Consumption? Occasional [email or web address] Information not available 04/20/2024 In The 14 [...] Type Of Diet Are You Following? REGULAR [email or web address] Information n ot available 04/20/2024 Have You Ever Been Counseled For Unhealthy Alcohol Use? No [email or web address] Information not available 04/20/2024 Do You Have Smoke And Carbon Monoxide Detectors In Your Home? Yes [email or web address] Information not available 04/20/2024 Do You Use Any Illicit Or Recreational Drugs? No [email or web address] Information not available 04/20/2024 Do You Use Sunscreen Routinely? Yes [email or web address] Information not available 04/20/2024 Has Tobacco Cessation Counseling Been Provided? No [email or web address] Information not available 04/20/2024 Do You Or Have You Ever Used Any Other Forms Of Tobacco Or Nicotine? No [email or web address] Information not available 04/20/2024 Sex: Unknown Functional [...] 02/27/2024 What is your exercise level? Occasional [email or web address] Information not available 04/20/2024 Mental Status None recorded. Family History Relationship Description Onset Age of this Age Resolved Age Notes LastModified by Organization Details LastModified Time Paternal Grandmother Malignant tumor of breast Not available 2023 14:34:11 Paternal Grandmother Mental disorder Not available 2023 14:35:05 Maternal Grandmother Malignant tumor of cervix Not available 2023 14:34:17 Maternal Grandmother Malignant tumor of ovary [email or web address] Not available 04/20 17:22:27 Paternal Grandfather Malignant tumor of colon Not available 2023 14:34:24 Paternal Grandfather Hypertensive disorder Not available 2023 14:34:37 Paternal Grandfather Mental disorder Not available 2023 14:35:05 Paternal Grandfather Chronic hepatitis [email or web address] Not available 04/20 17:22:55 Mother Hypertensive disorder Not available 2023 14:34:37 Mother Mental disorder Not available 2023 14:35:05 Father Mental disorder Not available 2023 14:35:05 Unspecified Relation Seizure disorder FOB MOTHER [email or web address] Not available 04/20/2024 15:26:35 Notes:Maternal grandmother: Ovarian cancer, Cervical cancer Paternal grandfather: Hepatitis Paternal grandmother: Cancer, breast Medical History Condition Response Allergies (Food, seasonal, environmental ) N Other N Breast Cancer N Drug/Latex Allergies/Reactions N Blood Transfusion N Dermatologic Disorders N Lung Disease N Defects or Inherited Disease N Breast Problem N Gestational Diabetes N Hematologic disorders N Anesthesia Complications N History of STI N Deep Vein Thrombosis N Polycystic ovary syndrome N Anxiety Disorder N Autoimmune disease N Arthritis N Infertility N Polyps N Acid Reflux (GERD) N History of abnormal pap N Cancer N Stroke N Varicosities N Neurologic/Epilepsy N Endometriosis N High Cholesterol [...] Recorded Time Tdap 08/13/2024 completed Phoebe mendez [facility] 08/20/2024 14:17:19 Influenza, MDCK, trivalent, PF 08/13/2024 completed Phoebe mendez [facility] 08/20/2024 14:17:19 Past Encounters Encounter ID Performer Location Encounter Start Date Encounter Closed Date Diagnosis/Indication Diagnosis SNOMED-CT Code Diagnosis ICD10 Code Diagnosis Note [id number] KESHA FIORE MD [place] [address],[place] [address] 08/04/2024 13:56:29 08/04/2024 15:06:05 Active or passive immunization 957778371 Z23 - Rx sent for RSV vaccine Gestationa l diabetes mellitus class A2 80395832 O24.414 - will start lantus at nighttime- weekly testing Gestation period, 34 weeks 23005073 Z3A.34 - continue PNV [id number] Phoebe Johnson [place] [address],[place] [address] 08/13/2024 10:58:31 08/13/2024 13:02:17 Gestational diabetes mellitus 90184927 O24.419 [id number] KESHA FIORE MD [place] [address],[place] [address] 08/13/2024 10:58:55 08/13/2024 17:08:31 Gestational diabetes mellitus class A2 71796942 O24.414 - controlled on lantus 5u qHS- continue weekly testing- plan for delivery by 39w6d Gestation period, 35 weeks 18412700 Z3A.35 [id number] Edith Shabazz [place] [address],[place] [address] 08/13/2024 10:59:07 08/13/2024 16:49:41 Gestational diabetes mellitus 56494146 O24.414 Z3A.35 [id number] KESHA FIORE MD [place] [address],[place] [address] 08/20/2024 14:06:49 08/20/2024 15:06:34 Gestational diabetes mellitus class A2 35827289 O24.414 - controlled on lantus 5u qHS- continue weekly testing- plan for delivery by 39w6d Gestation period, 36 weeks 04622293 Z3A.36 - GBS collected today- continue PNV [id number] Cristian Byrd MD [place] [address],[place] [address] 08/26/2024 15:32:53 08/26/2024 16:23:00 Routine care 775761356 Z34.90 [id number] KESHA FIORE MD [place] [address] [address] 09/03/2024 15:31:52 09/03/2024 18:32:23 Health Concerns Section Related Observation LastModified by Organization Detai ls LastModified Time None Recorded Concern Status LastModified by Organization Details LastModified Time None Recorded Payers Encounter Date Sequence Insurance Name Policy Number Policy Emhta Covered Member ID Mehta Member ID Guarantor Name 09/03/2024 1 [facility] (MEDICAID HMO) [id number] [employer] [id number] [employer] OBGyn Episode Ob Episode Information Episode Created Date Number of Fetuses Patient Bloodtype Patient rh Status Prepregnancy Weight lbs Domestic Partner Domestic Partner Phone Father Name Unscrambler Status 02/27/20 24 1 AB Negative 194 OPEN Fetus Data First Name Last Name Admitted to NICU Weight (g) Sex Living Outcome Pediatric Complications Fetus ID Race Codes Race Delivery Type [id number] Problems Problem Notes Problem Name Start Date End Date Resolution Snomed Code Not e Marijuana user 436673188 +UDS Gestational diabetes mellitus 18007512 BS QID, serial imjzhl89/4 - Lantus 5 units @[facility] Tomas Calculation [...] Weight in lbs Pre/Post Dialysis Refused Weight 194.984970310872 BP Diastolic BP Location Tested BP Systolic [...] Type Weight in lbs Pre/Post Dialysis Refused 192.921779175346 BP Diastolic BP Location Tested BP Systolic [...] Type Weight in lbs Pre/Post Dialysis Refused 196.238271399928 BP Diastolic BP Location Tested BP Systolic [...] Type Weight in lbs Pre/Post Dialysis Refused 203.63828973706 BP Diastolic BP Location Tested BP Systolic BP Type 69 L arm 100 sitting Fetus Heart Rate Present A 140 Fetus Movement A Yes Comments Good movement. No cram ping or bleeding. Discussed labs and GCT for next visit, will go to [place] for labs and Rhogam. Carpal tunnel improving. 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 RTC 4 weeks. Flowsheet Date 06/18/2024 Newton Score Blood Edema Fundus Height Fundus Units Glucose Ketones Leukocytes Nitrite Labor Signs Protein Cervic Dilation Cervic Effacement Cervic Station neg none none trace Type Weight in lbs Pre/Post Dialysis Refused 213.728374899104 BP Diastolic BP Location Tested BP Systolic [...] Weight in lbs Pre/Post Dialysis Refused Weight 214.906113283905 BP Diastolic BP Location Tested BP Systolic [...] Weight in lbs Pre/Post Dialysis Refused Weight 215.050400397442 BP Diastolic BP Location Tested BP Systolic [...] Weight in lbs Pre/Post Dialysis Refused Weight 224.525041153358 BP Diastolic BP Location Tested BP Systolic BP Type 79 L arm 121 sitting Fetus Heart Rate Present A 140 Fetus Movement A Yes Comments Patient c/o [place], s tates in some pelvic pain. [...] Weight in lbs Pre/Post Dialysis Refused Weight 223.668684790506 BP Diastolic BP Location Tested BP Systolic [...] Weight in lbs Pre/Post Dialysis Refused Weight 227.8255755599 BP Diastolic BP Location Tested BP Systolic BP Type 76 L arm 114 sitting Fetus Heart Rate Present A Present Fetus Movement A Yes Comments Good movement. No ctx, LOF, VB. NST/BPP at [facility], 06/10. MIL for GDMA2 on 09/06 in PM. GBS collected today. RTC 1 week. Flowsheet Date 08/26/2024 Newton Score Blood Edema Fundus Height Fundus Units Glucose Ketones Leukocytes Nitrite Labor Signs Protein Cervic Dilation Cervic Effacement Cervic Station Type Weight in lbs Pre/Post Dialysis Refused 229.644994616159 BP Diastolic BP Location Tested BP Systolic [...] Estim ated Date of Delivery false Thalassemia (Belarusian, Lebanese, Mediterranean, Or Background): MCV < 80 false Neural Tube Defect (Meningomyelocele, Spina Bifi da, Or Anencephaly) false Congenital Heart Defect false Down Syndrome false Fernando-Sachs (eg, Religious, Cajun, Yoruba-Ragland) f alse Genna Disease false Sickle Cell Disease Or Trait () false Hemophilia Or Other Blood Disorders false Muscular Dystrophy false Cystic Fibrosis false Audelia's Chorea false Intellectual Disability/Autism false If Yes, [...]
--- OUTSIDE RECORDS SUMMARY | 2024-09-13 03:17 | XMS_ITS | Continuity of Care Document ---
Author Organization 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 MILTONRUBY [address] [facility], [place], [address], 03/04/2024 23:04:35 03/08/2003/08/2024 US, obste tric, nucha l trans lucen cy No observ ation record ed. [email or web address] [place] [address], [place], [address], 03/08/2024 18:13:20 03/08/20 24 03/08/2024 US, obstkeenan tric, 1st trime ster No observ ation record ed. [email or web address] [place] [address], [place], [address], 03/08/2024 18:13:12 03/08/20 24 03/08/2024 US, obste tric, nucha l trans lucen cy No observ ation record ed. [email or web address] [address], [place], [address], 03/08/2024 20:58:25 04/20/20 24 04/20/2024 US, obste tric, follo w-up No observ ation record ed. [email or web address] [address], [place], [address], 04/21/2024 17:06:55 08/02/20 24 08/02/2024 US, obste tric, follo w-up No observ ation record ed. [email or web address] [place] [address], [place], [address], 08/02/2024 10:13:50 08/02/20 24 08/02/2024 US, obste tric, follo w-up No observ ation record ed. [email or web address] [address], [place], [address], 08/05/2024 20:29:18 08/13/20 24 08/13/2024 non-s tress test No observ ation record ed. [email or web address] [place] [address], [place], [address], 08/13/2024 12:48:12 08/13/20 24 08/13/2024 US, obste tric, bioph ysica l profi le No observ ation record ed. [email or web address] [address], [place], [address], 08/14/2024 23:23:31 08/13/20 24 08/13/2024 US, obste tric, bioph ysica l profi le + non-s tress test No observ ation record ed. [email or web address] [place] [address], [place], [address], 08/13/2024 17:26:10 08/17/20 24 08/17/2024 non-s tress test No observ ation record ed. [address] [place] [address], [place], [address], 08/19/2024 11:56:26 08/21/20 24 08/21/2024 non-s tress test No observ ation record ed. [address] [address], [place], [address], 08/31/2024 11:25:22 08/26/20 24 08/26/2024 non-s tress test No observ ation record ed. [email or web address] Not Available 2023 11:08:41 09/03/19 25 09/03/2024 non-s tress test No observ ation record ed. [address] [address], [place], [address], 09/06/2024 13:42:56 Result Notes None recorded. Problems Name Problem SNOMED Code Status Onset Date Resolution Date Notes Provider Name and Address Organization Details Recorded Time 71546185 Active 2023 Ashley Epstein [facility], [facility] 4 14:41:40 Marijuana user 673974836 Active +UDS Osiris Lopez [facility], [facility] 4 14:12:40 Gestational diabetes mellitus 62083961 Active BS QID, serial growth 12/4 - Lantus 5 units @[facility] Larissa valdes null, [facility] 4 15:11:40 Gestational diabetes mellitus 35999090 Active BS QID, serial growth 12/4 - Lantus 5 units @[facility] Larissa Rausch eier null, [facility] 4 15:11:40 Problem Notes None recorded. Procedures Surgical History Date Name Laterality Status Provider Name and Address Organization Details Recorded Time 09/01/19 19 Date of Last Pap Smear completed [facility] 02/27/2024 14:32:44 09/01/19 04 procedure on knee completed [facility] 02/27/2024 14:36:05 09/01/19 00 Tonsillectomy completed [facility] 02/27/2024 14:36:17 Imaging Results None recorded. Procedure Notes None recorded. Medical Equipment None Reported. Allergies No known drug allergies Medications Name Sig Start Date Stop Date Status Note LastModified by Organization Details LastModified Time cefadroxi l 500 mg capsule take 1 capsule by oral route every 12 hours for 10 days 07/26 completed Prescrib ed Elsewher e: No Locat ion: [facility] odify By: steve ghosh DateTime : 07/17/20 16 02:00:00 PM Not Available Not Available Not Available OneTouch Ultra Test strips USE TO TEST 4 TIMES A DAY active Not Available Not Available No t Available June FE 09/20 (28) 1 mg-20 mcg (21)/75 mg (7) tablet TAKE 1 TABLET BY ORAL ROUTE EVERY DAY 10/16 completed [facility] ed Elsewher e: No [facility]at [facility]ify By: lawanda cortes DateTime : 09/09/19 [...] Prescrib ed Elsewher e: Yes [facility] By: deandre cortes DateTime : 08/09/20 [...] and Address Organization Details Last Updated DateTime 07/02/2024 165.1 cm 35.6 kg/m2 43497.77 g 110 mm[Hg] 76 mm[Hg] Phoebe Johnson [facility] 09:30:51 Social History Question Answer Notes LastModified by Organizat ion Details LastModified Time Tobacco Smoking Status Never Smoker Ashley Lucian mendez, [facility] 02/27/2024 14:35:43 What Is Your Level Of Alcohol Consumption? Occasional Information not available 02/27/2024 Are You Blind Or Do You Have Difficulty Seeing? No Information n ot available 02/27/2024 What Is Your Level Of Caffeine Consumption? Occasional [email or web address] Information not available 04/20/2024 In The 14 [...] Type Of Diet Are You Following? REGULAR [email or web address] Information n ot available 04/20/2024 Have You Ever Been Counseled For Unhealthy Alcohol Use? No [email or web address] Information not available 04/20/2024 Do You Have Smoke And Carbon Monoxide Detectors In Your Home? Yes [email or web address] Information not available 04/20/2024 Do You Use Any Illicit Or Recreational Drugs? No [email or web address] Information not available 04/20/2024 Do You Use Sunscreen Routinely? Yes [email or web address] Information not available 04/20/2024 Has Tobacco Cessation Counseling Been Provided? No [email or web address] Information not available 04/20/2024 Do You Or Have You Ever Used Any Other Forms Of Tobacco Or Nicotine? No [email or web address] Information not available 04/20/2024 Sex: Unknown Functional [...] 02/27/2024 What is your exercise level? Occasional [email or web address] Information not available 04/20/2024 Mental Status None recorded. Family History Relationship Description Onset Age of this Age Resolved Age Notes LastModified by Organization Details LastModified Time Paternal Grandmother Malignant tumor of breast Not available 2023 14:34:11 Paternal Grandmother Mental disorder Not available 2023 14:35:05 Maternal Grandmother Malignant tumor of cervix Not available 2023 14:34:17 Maternal Grandmother Malignant tumor of ovary [email or web address] Not available 04/20 17:22:27 Paternal Grandfather Malignant tumor of colon Not available 2023 14:34:24 Paternal Grandfather Hypertensive disorder Not available 2023 14:34:37 Paternal Grandfather Mental disorder Not available 2023 14:35:05 Paternal Grandfather Chronic hepatitis [email or web address] Not available 04/20 17:22:55 Mother Hypertensive disorder Not available 2023 14:34:37 Mother Mental disorder Not available 2023 14:35:05 Father Mental disorder Not available 2023 14:35:05 Unspecified Relation Seizure disorder FOB MOTHER [email or web address] Not available 04/20/2024 15:26:35 Notes:Maternal grandmother: Ovarian cancer, Cervical cancer Paternal grandfather: Hepatitis Paternal grandmother: Cancer, breast Medical History Condition Response Allergies (Food, seasonal, environmental ) N Other N Blood Transfusion N Drug/Latex Allergies/Reactions N Breast Cancer N Dermatologic Disorders N Lung Disease N [...] Vaccine Type Date Status Note Provider Yvan e and Address Organization Details Recorded Time Tdap 08/13/2024 completed Phoebe mendez [facility] 08/20/2024 14:17:19 Influenza, MDCK, trivalent, PF 08/13/2024 completed Phoebe mendez [facility] 08/20/2024 14:17:19 Past Encounters Encounter ID Performer Location Encounter Start Date Encounter Closed Date Diagnosis/Indication Diagnosis SNOMED-CT Code Diagnosis ICD10 Code Diagnosis Note [id number] KESHA FIORE MD [place] [address],[facility] [address] 06/18/2024 12:11:01 06/28/2024 04:03:48 Routine care 725193405 Z34.02 - continue PNV [id number] KESHA FIORE MD [place] [address],[facility] [address] 07/02/2024 09:17:01 07/02/2024 10:04:18 Routine care 245884927 Z34.02 - continue PNV- 3h GTT today Health Concerns Section Related Observation LastModified by Organization Detai ls LastModified Time None Recorded Concern Status LastModified by Organization Details LastModified Time None Recorded Payers Encounter Date Sequence Insurance Name Policy Number Policy Mehta Covered Member ID Mehta Member ID Guarantor Name 07/02/2024 1 [place] [facility] Diana Chiu [id number] Diana Chiu OBGyn Episode Ob Episode Information Episode Created Date Number of Fetuses Patient Bloodtype Patient rh Status Prepregnancy Weight lbs Domestic Partner Domestic Partner Phone Father Name 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 Status 02/27/20 24 1 AB Negative 194 OPEN Fetus Data First Name Last Name Admitted to NICU Weight (g) Sex Living Outcome Pediatric Complications Fetus ID Race Codes Race Delivery Type [id number] Problems Problem Notes Problem Name Start Date End Date Resolution Snomed Code Not e Marijuana user 503458246 +UDS Gestational diabetes mellitus 59172249 BS QID, serial tlkdpu97/4 - Lantus 5 units @[facility] [place] Calculation [...] Weight in lbs Pre/Post Dialysis Refused Weight 194.244201956051 BP Diastolic BP Location Tested BP Systolic [...] Type Weight in lbs Pre/Post Dialysis Refused 192.409518265580 BP Diastolic BP Location Tested BP Systolic [...] Type Weight in lbs Pre/Post Dialysis Refused 196.484603863659 BP Diastolic BP Location Tested BP Systolic [...] Type Weight in lbs Pre/Post Dialysis Refused 203.63964480831 BP Diastolic BP Location Tested BP Systolic BP Type 69 L arm 100 sitting Fetus Heart Rate Present A 140 Fetus Movement A Yes Comments Good movement. No cram ping or bleeding. Discussed labs and GCT for next visit, will go to [facility] for labs and Rhogam. Carpal tunnel improving. 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 RTC 4 weeks. Flowsheet Date 06/18/2024 Newton Score Blood Edema Fundus Height Fundus Units Glucose Ketones Leukocytes Nitrite Labor Signs Protein Cervic Dilation Cervic Effacement Cervic Station neg none none trace Type Weight in lbs Pre/Post Dialysis Refused 213.671389491926 BP Diastolic BP Location Tested BP Systolic [...] Weight in lbs Pre/Post Dialysis Refused Weight 214.387563112982 BP Diastolic BP Location Tested BP Systolic [...] Weight in lbs Pre/Post Dialysis Refused Weight 215.883911746180 BP Diastolic BP Location Tested BP Systolic [...] Weight in lbs Pre/Post Dialysis Refused Weight 224.512172071118 BP Diastolic BP Location Tested BP Systolic BP Type 79 L arm 121 sitting Fetus Heart Rate Present A 140 Fetus Movement A Yes Comments Patient c/o [place], s tates in some pelvic pain. [...] Weight in lbs Pre/Post Dialysis Refused Weight 223.081746772758 BP Diastolic BP Location Tested BP Systolic [...] Weight in lbs Pre/Post Dialysis Refused Weight 227.4941440843 BP Diastolic BP Location Tested BP Systolic BP Type 76 L arm 114 sitting Fetus Heart Rate Present A Present Fetus Movement A Yes Comments Good movement. No ctx, LOF, VB. NST/BPP at [place], 06/10. MIL for GDMA2 on 09/06 in PM. GBS collected today. RTC 1 week. Flowsheet Date 08/26/2024 Newton Score Blood Edema Fundus Height Fundus Units Glucose Ketones Leukocytes Nitrite Labor Signs Protein Cervic Dilation Cervic Effacement Cervic Station Type Weight in lbs Pre/Post Dialysis Refused 229.560995504906 BP Diastolic BP Location Tested BP Systolic [...] Estim ated Date of Delivery false Thalassemia (Czech, Serbian, Mediterranean, Or Background): MCV < 80 false Neural Tube Defect (Meningomyelocele, Spina Bifi da, Or Anencephaly) false Congenital Heart Defect false Down Syndrome false Fernando-Sachs (eg, Restoration, Cajun, Syriac-Belizean) f alse Genna Disease false Sickle Cell Disease Or Trait () false Hemophilia Or Other Blood Disorders false Muscular Dystrophy false Cystic Fibrosis false Percival's Chorea false Intellectual Disability/Autism false If Yes, [...]
--- OUTSIDE RECORDS SUMMARY | 2024-09-13 03:17 | XMS_ITS | Continuity of Care Document ---
Author Organization [facility] Address [address] [place] [address] Care Team Providers Care Addiction Therapist Name Role Phone SABRINA MOTT Primary Care Provider [phone] Assessment No assessment recorded. Plan of Treatment [...] ation record ed. MILTONRUBY [address], [facility], [place], [address], 03/04/2024 23:04:35 03/08/2003/08/2024 US, obste tric, nucha l trans lucen cy No observ ation record ed. [email or web address] [place] [address], [place], [address], 03/08/2024 18:13:20 03/08/20 24 03/08/2024 US, obstkeenan tric, 1st trime ster No observ ation record ed. [email or web address] [place] [address], [place], [address], 03/08/2024 18:13:12 03/08/20 24 03/08/2024 US, obste tric, nucha l trans lucen cy No observ ation record ed. [email or web address] [address], [place], [address], 03/08/2024 20:58:25 04/20/20 24 04/20/2024 US, obste tric, follo w-up No observ ation record ed. [email or web address] [address], [place], [address], 04/21/2024 17:06:55 08/02/20 24 08/02/2024 US, obste tric, follo w-up No observ ation record ed. [email or web address] [place] [address], [place], [address], 08/02/2024 10:13:50 08/02/20 24 08/02/2024 US, obste tric, follo w-up No observ ation record ed. [address], [place], [address], 08/05/2024 20:29:18 08/13/20 24 08/13/2024 non-s tress test No observ ation record ed. [place] [address], [place], [address], 08/13/2024 12:48:12 08/13/20 24 08/13/2024 US, obste tric, bioph ysica l profi le No observ ation record ed. [email or web address] [address], [place], [address], 08/14/2024 23:23:31 08/13/20 24 08/13/2024 US, obste tric, bioph ysica l profi le + non-s tress test No observ ation record ed. [email or web address] [place] [address], [place], [address], 08/13/2024 17:26:10 08/17/20 24 08/17/2024 non-s tress test No observ ation record ed. [place] [address], [place], [address], 08/19/2024 11:56:26 08/21/20 24 08/21/2024 non-s tress test No observ ation record ed. [address] [address], [place], [address], 08/31/2024 11:25:22 08/26/20 24 08/26/2024 non-s tress test No observ ation record ed. [place] [id number] Not Available 2023 11:08:41 09/03/19 25 09/03/2024 non-s tress test No observ ation record ed. [place] [address], [place], [address], 09/06/2024 13:42:56 Result Notes None recorded. Problems Name Problem SNOMED Code Status Onset Date Resolution Date Notes Provider Name and Address Organization Details Recorded Time 92653277 Active 2023 Ashley Epstein [facility], [facility] 4 14:41:40 Marijuana user 230215718 Active +UDS Osiris Lopez [facility], [facility] 4 14:12:40 Gestational diabetes mellitus 14941488 Active BS QID, serial growth 12/4 - Lantus 5 units @HS Larissa valdes null, [facility] 4 15:11:40 Gestational diabetes mellitus 67821089 Active BS QID, serial growth 12/4 - Lantus 5 units @[facility] Larissa Rausch eier null, [facility] 4 15:11:40 Problem Notes None recorded. Procedures Surgical History Date Name Laterality Status Provider Name and Address Organization Details Recorded Time 09/01/19 19 Date of Last Pap Smear completed [facility] 02/27/2024 14:32:44 09/01/19 04 procedure on knee completed [facility] 02/27/2024 14:36:05 09/01/19 00 Tonsillectomy completed [facility] 02/27/2024 14:36:17 Imaging Results None recorded. Procedure Notes None recorded. Medical Equipment None Reported. Allergies No known drug allergies Medications Name Sig Start Date Stop Date Status Note LastModified by Organization Details LastModified Time cefadroxi l 500 mg capsule take 1 capsule by oral route every 12 hours for 10 days 07/26 completed Prescrib ed Elsewher e: No Locat ion: [facility] odify By: steve ghosh DateTime : 07/17/20 16 02:00:00 PM Not Available Not Available Not Available OneTouch Ultra Test strips USE TO TEST 4 TIMES A DAY active Not Available Not Available No t Available June FE 09/20 (28) 1 mg-20 mcg (21)/75 mg (7) tablet TAKE 1 TABLET BY ORAL ROUTE EVERY DAY 10/16 [facility] Elsewher e: No [facility] By: lawanda cortes DateTime : 09/09/19 [...] Prescrib ed Elsewher e: Yes [facility] By: deandre cortes DateTime : 08/09/20 [...] and Address Organization Details Last Updated DateTime 08/04/2024 165.1 cm 37.3 kg/m2 498992.6 9 g 121 mm[Hg] 79 mm[Hg] Phoebe Johnson [facility] 14:21:34 Social History Question Answer Notes LastModified by Organizat ion Details LastModified Time Tobacco Smoking Status Never Smoker Ashley Acostase mendez, [facility] 02/27/2024 14:35:43 What Is Your Level Of Alcohol Consumption? Occasional Information not available 02/27/2024 Are You Blind Or Do You Have Difficulty Seeing? No Information n ot available 02/27/2024 What Is Your Level Of Caffeine Consumption? Occasional [email or web address] Information not available 04/20/2024 In The 14 [...] Type Of Diet Are You Following? REGULAR [email or web address] Information n ot available 04/20/2024 Have You Ever Been Counseled For Unhealthy Alcohol Use? No [email or web address] Information not available 04/20/2024 Do You Have Smoke And Carbon Monoxide Detectors In Your Home? Yes [email or web address] Information not available 04/20/2024 Do You Use Any Illicit Or Recreational Drugs? No [email or web address] Information not available 04/20/2024 Do You Use Sunscreen Routinely? Yes [email or web address] Information not available 04/20/2024 Has Tobacco Cessation Counseling Been Provided? No [email or web address] Information not available 04/20/2024 Do You Or Have You Ever Used Any Other Forms Of Tobacco Or Nicotine? No [email or web address] Information not available 04/20/2024 Sex: Unknown Functional [...] 02/27/2024 What is your exercise level? Occasional [email or web address] Information not available 04/20/2024 Mental Status None recorded. Family History Relationship Description Onset Age of this Age Resolved Age Notes LastModified by Organization Details LastModified Time Paternal Grandmother Malignant tumor of breast Not available 2023 14:34:11 Paternal Grandmother Mental disorder Not available 2023 14:35:05 Maternal Grandmother Malignant tumor of cervix Not available 2023 14:34:17 Maternal Grandmother Malignant tumor of ovary Not available 04/20 17:22:27 Paternal Grandfather Malignant tumor of colon Not available 2023 14:34:24 Paternal Grandfather Hypertensive disorder Not available 2023 14:34:37 Paternal Grandfather Mental disorder Not available 2023 14:35:05 Paternal Grandfather Chronic hepatitis [email or web address] Not available 04/20 17:22:55 Mother Hypertensive disorder Not available 2023 14:34:37 Mother Mental disorder Not available 2023 14:35:05 Father Mental disorder Not available 2023 14:35:05 Unspecified Relation Seizure disorder FOB MOTHER [email or web address] Not available 04/20/2024 15:26:35 Notes:Maternal grandmother: Ovarian [...] Recorded Time Tdap 08/13/2024 completed Phoebe mendez [facility] 08/20/2024 14:17:19 Influenza, MDCK, trivalent, PF 08/13/2024 completed Phoebe mendez [facility] 08/20/2024 14:17:19 Past Encounters Encounter ID Performer Location Encounter Start Date Encounter Closed Date Diagnosis/Indication Diagnosis SNOMED-CT Code Diagnosis ICD10 Code Diagnosis Note [id number] KESHA FIORE MD [place] [address],[place] [address] 07/16/2024 09:24:25 07/16/2024 11:05:08 Gestational diabetes mellitus 02073216 O24.419 Gestation period, 31 weeks 29294379 Z3A.31 - continue pNV [id number] Graciela [facility] [address],[place] [address] 08/02/2024 09:14:02 08/02/2024 10:35:44 Gestational diabetes mellitus 97258615 O24.410 Z3A.34 [id number] KESHA FIORE MD [place] [address],[place] [address] 08/04/2024 13:56:29 08/04/2024 15:06:05 Active or passive immunization 176893897 Z23 - Rx sent for RSV vaccine Gestationa l diabetes mellitus class A2 74485455 O24.414 - will start lantus at nighttime- weekly testing Gestation period, 34 weeks 17925564 Z3A.34 - continue PNV Health Concerns Section Related Observation LastModified by Organization Detai ls LastModified Time None Recorded Concern Status LastModified by Organization Details LastModified Time None Recorded Payers Encounter Date Sequence Insurance Name Policy Number Policy Mehta Covered Member ID Mehta Member ID Guarantor Name 08/04/[address] 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 Flowsheet Date 03/08/2024 Newotn Score Blood Edema Fundus Height Fundus Units [...] Type Weight in lbs Pre/Post Dialysis Refused 192.602573281078 BP Diastolic BP Location Tested BP Systolic [...] Type Weight in lbs Pre/Post Dialysis Refused 196.849906752172 BP Diastolic BP Location Tested BP Systolic [...] Type Weight in lbs Pre/Post Dialysis Refused 203.71809416706 BP Diastolic BP Location Tested BP Systolic BP Type 69 L arm 100 sitting Fetus Heart Rate Present A 140 Fetus Movement A Yes Comments Good movement. No cram ping or bleeding. Discussed labs and GCT for next visit, will go to [place] for labs and Rhogam. Carpal tunnel improving. 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 RTC 4 weeks. Flowsheet Date 06/18/2024 Newton Score Blood Edema Fundus Height Fundus Units Glucose Ketones Leukocytes Nitrite Labor Signs Protein Cervic Dilation Cervic Effacement Cervic Station neg none none trace Type Weight in lbs Pre/Post Dialysis Refused 213.624706086667 BP Diastolic BP Location Tested BP Systolic [...] Weight in lbs Pre/Post Dialysis Refused Weight 214.298644987809 BP Diastolic BP Location Tested BP Systolic [...] Weight in lbs Pre/Post Dialysis Refused Weight 215.906952544953 BP Diastolic BP Location Tested BP Systolic [...] Weight in lbs Pre/Post Dialysis Refused Weight 224.568114253797 BP Diastolic BP Location Tested BP Systolic BP Type 79 L arm 121 sitting Fetus Heart Rate Present A 140 Fetus Movement A Yes Comments Patient c/o [place] Bean, s tates in some pelvic pain. [...] Weight in lbs Pre/Post Dialysis Refused Weight 223.438566272031 BP Diastolic BP Location Tested BP Systolic [...] Weight in lbs Pre/Post Dialysis Refused Weight 227.6240380312 BP Diastolic BP Location Tested BP Systolic BP Type 76 L arm 114 sitting Fetus Heart Rate Present A Present Fetus Movement A Yes Comments Good movement. No ctx, LOF, VB. NST/BPP at [place], 06/10. [place] for GDMA2 on 09/06 in PM. GBS collected today. RTC 1 week. Flowsheet Date 08/26/2024 Newton Score Blood Edema Fundus Height Fundus Units Glucose Ketones Leukocytes Nitrite Labor Signs Protein Cervic Dilation Cervic Effacement Cervic Station Type Weight in lbs Pre/Post Dialysis Refused 229.700619300142 BP Diastolic BP Location Tested BP Systolic [...] Estim ated Date of Delivery false Thalassemia (Salvadorean, Greenlandic, Mediterranean, Or Background): MCV < 80 false Neural Tube Defect (Meningomyelocele, Spina Bifi da, Or Anencephaly) false Congenital Heart Defect false Down Syndrome false Fernando-Sachs (eg, Lutheran, Cajun, Swedish-Mexican) f alse Genna Disease false Sickle Cell Disease Or Trait () false Hemophilia Or Other Blood Disorders false Muscular Dystrophy false Cystic Fibrosis false Upson's Chorea false Intellectual Disability/Autism false If Yes, [...]
--- OUTSIDE RECORDS SUMMARY | 2024-09-13 03:17 | XMS_ITS | Continuity of Care Document ---
Author Organization 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 MILTONRUBY [address], [facility], [place], [address], 03/04/2024 23:04:35 03/08/2003/08/2024 US, obste tric, nucha l trans lucen cy No observ ation record ed. [email or web address] [place] [address], [place], [address], 03/08/2024 18:13:20 03/08/20 24 03/08/2024 US, obstkeenan tric, 1st trime ster No observ ation record ed. [email or web address] [place] [address], [place], [address], 03/08/2024 18:13:12 03/08/20 24 03/08/2024 US, obste tric, nucha l trans lucen cy No observ ation record ed. [email or web address] [address], [place], [address], 03/08/2024 20:58:25 04/20/20 24 04/20/2024 US, obste tric, follo w-up No observ ation record ed. [email or web address] [address], [place], [address], 04/21/2024 17:06:55 08/02/20 24 08/02/2024 US, obste tric, follo w-up No observ ation record ed. [email or web address] [place] [address], [place], [address], 08/02/2024 10:13:50 08/02/20 24 08/02/2024 US, obste tric, follo w-up No observ ation record ed. [address], [place], [address], 08/05/2024 20:29:18 08/13/20 24 08/13/2024 non-s tress test No observ ation record ed. [email or web address] [place] [address], [place], [address], 08/13/2024 12:48:12 08/13/20 24 08/13/2024 US, obste tric, bioph ysica l profi le No observ ation record ed. [email or web address] [address], [place], [address], 08/14/2024 23:23:31 08/13/20 24 08/13/2024 US, obste tric, bioph ysica l profi le + non-s tress test No observ ation record ed. [email or web address] [place] [address], [place], [address], 08/13/2024 17:26:10 08/17/20 24 08/17/2024 non-s tress test No observ ation record ed. [address] [address], [place], [address], 08/19/2024 11:56:26 08/21/20 24 08/21/2024 non-s tress test No observ ation record ed. [address] [address], [place], [address], 08/31/2024 11:25:22 08/26/20 24 08/26/2024 non-s tress test No observ ation record ed. [email or web address] Not Available 2023 11:08:41 09/03/19 25 09/03/2024 non-s tress test No observ ation record ed. [address] [address], [place], [address], 09/06/2024 13:42:56 Result Notes None recorded. Problems Name Problem SNOMED Code Status Onset Date Resolution Date Notes Provider Name and Address Organization Details Recorded Time 60344760 Active 2023 Ashley Epstein [facility], [facility] 4 14:41:40 Marijuana user 263969670 Active +UDS Osiris Lopez [facility], [facility] 4 14:12:40 Gestational diabetes mellitus 59473260 Active BS QID, serial growth 12/4 - Lantus 5 units @[facility] Larissa valdes null, [facility] 4 15:11:40 Gestational diabetes mellitus 29947136 Active BS QID, serial growth 12/4 - Lantus 5 units @[facility] Larissa Rausch eier null, [facility] 4 15:11:40 Problem Notes None recorded. Procedures Surgical History Date Name Laterality Status Provider Name and Address Organization Details Recorded Time 09/01/19 19 Date of Last Pap Smear completed [facility] 02/27/2024 14:32:44 09/01/19 04 procedure on knee completed [facility] 02/27/2024 14:36:05 09/01/19 00 Tonsillectomy completed [facility] 02/27/2024 14:36:17 Imaging Results None recorded. Procedure Notes None recorded. Medical Equipment None Reported. Allergies No known drug allergies Medications Name Sig Start Date Stop Date Status Note LastModified by Organization Details LastModified Time cefadroxi l 500 mg capsule take 1 capsule by oral route every 12 hours for 10 days 07/26 completed Prescrib ed Elsewher e: No Locat ion: [facility] odify By: steve ghosh DateTime : 07/17/20 16 02:00:00 PM Not Available Not Available Not Available OneTouch Ultra Test strips USE TO TEST 4 TIMES A DAY active Not Available Not Available No t Available June FE 09/20 (28) 1 mg-20 mcg (21)/75 mg (7) tablet TAKE 1 TABLET BY ORAL ROUTE EVERY DAY 10/16 completed [facility] ed Elsewher e: No [facility] By: lawanda cortes DateTime : [...] Prescrib ed Elsewher e: Yes [facility] By: deandre cortes DateTime : [...] and Address Organization Details Last Updated DateTime 07/16/2024 165.1 cm 35.8 kg/m2 04180.36 g 126 mm[Hg] 80 mm[Hg] Phoebe Johnson [facility] 09:46:10 Social History Question Answer Notes LastModified by Organizat ion Details LastModified Time Tobacco Smoking Status Never Smoker Ashley Lucian mendez, [facility] 02/27/2024 14:35:43 What Is Your Level Of Alcohol Consumption? Occasional Information not available 02/27/2024 Are You Blind Or Do You Have Difficulty Seeing? No Information n ot available 02/27/2024 What Is Your Level Of Caffeine Consumption? Occasional [email or web address] Information not available 04/20/2024 In The 14 [...] Type Of Diet Are You Following? REGULAR [email or web address] Information n ot available 04/20/2024 Have You Ever Been Counseled For Unhealthy Alcohol Use? No [email or web address] Information not available 04/20/2024 Do You Have Smoke And Carbon Monoxide Detectors In Your Home? Yes [email or web address] Information not available 04/20/2024 Do You Use Any Illicit Or Recreational Drugs? No [email or web address] Information not available 04/20/2024 Do You Use Sunscreen Routinely? Yes [email or web address] Information not available 04/20/2024 Has Tobacco Cessation Counseling Been Provided? No [email or web address] Information not available 04/20/2024 Do You Or Have You Ever Used Any Other Forms Of Tobacco Or Nicotine? No Information not available 04/20/2024 Sex: Unknown Functional [...] 02/27/2024 What is your exercise level? Occasional [email or web address] Information not available 04/20/2024 Mental Status None recorded. Family History Relationship Description Onset Age of this Age Resolved Age Notes LastModified by Organization Details LastModified Time Paternal Grandmother Malignant tumor of breast Not available 2023 14:34:11 Paternal Grandmother Mental disorder Not available 2023 14:35:05 Maternal Grandmother Malignant tumor of cervix Not available 2023 14:34:17 Maternal Grandmother Malignant tumor of ovary [email or web address] Not available 04/20 17:22:27 Paternal Grandfather Malignant tumor of colon Not available 2023 14:34:24 Paternal Grandfather Hypertensive disorder Not available 2023 14:34:37 Paternal Grandfather Mental disorder Not available 2023 14:35:05 Paternal Grandfather Chronic hepatitis [email or web address] Not available 04/20 17:22:55 Mother Hypertensive disorder [...] Recorded Time Tdap 08/13/2024 completed Phoebe mendez [facility] 08/20/2024 14:17:19 Influenza, MDCK, trivalent, PF 08/13/2024 completed Phoebe mendez [facility] 08/20/2024 14:17:19 Past Encounters Encounter ID Performer Location Encounter Start Date Encounter Closed Date Diagnosis/Indication Diagnosis SNOMED-CT Code Diagnosis ICD10 Code Diagnosis Note [id number] KESHA FIORE MD [facility] [address],[place] [address] 06/18/2024 12:11:01 06/28/2024 04:03:48 Routine care 814234036 Z34.02 - continue PNV [id number] KESHA FIORE MD [facility] [address],[place] [address] 07/02/2024 09:17:01 07/02/2024 10:04:18 Routine care 386328674 Z34.02 - continue PNV- 3h GTT today [id number] KESHA FIORE MD [facility] [address],[place] [address] 07/16/2024 09:24:25 07/16/2024 11:05:08 Gestational diabetes mellitus 35025539 O24.419 Gestation period, 31 weeks 08639246 Z3A.31 - continue pNV Health Concerns Section Related Observation LastModified by Organization Detai ls LastModified Time None Recorded Concern Status LastModified by Organization Details LastModified Time None Recorded Payers Encounter Date Sequence Insurance Name Policy Number Policy Mehta Covered Member ID Mehta Member ID Guarantor Name 07/16/2024 1 *SELF PAY* Momo Chiu OBGyn Episode Ob Episode Information Episode Created Date Number of Fetuses Patient Bloodtype Patient rh Status Prepregnancy Weight lbs Domestic Partner Domestic Partner Phone Father Name Wood Box Maker Status 02/27/20 24 1 AB Negative 194 OPEN Fetus Data First Name Last Name Admitted to NICU Weight (g) Sex Living Outcome Pediatric Complications Fetus ID Race Codes Race Delivery Type [id number] Problems Problem Notes Problem Name Start Date End Date Resolution Snomed Code Not e Marijuana user 113718155 +UDS Gestational diabetes mellitus 72105831 BS QID, serial dslcye23/4 - Lantus 5 units @[facility] Tomas Calculation [...] Weight in lbs Pre/Post Dialysis Refused Weight 194.518664006875 BP Diastolic BP Location Tested BP Systolic [...] Type Weight in lbs Pre/Post Dialysis Refused 192.816371260290 BP Diastolic BP Location Tested BP Systolic [...] Type Weight in lbs Pre/Post Dialysis Refused 196.325834785204 BP Diastolic BP Location Tested BP Systolic [...] Type Weight in lbs Pre/Post Dialysis Refused 203.60716187128 BP Diastolic BP Location Tested BP Systolic BP Type 69 L arm 100 sitting Fetus Heart Rate Present A 140 Fetus Movement A Yes Comments Good movement. No cram ping or bleeding. Discussed labs and GCT for next visit, will go to [place] for labs and Rhogam. Carpal tunnel improving. 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 RTC 4 weeks. Flowsheet Date 06/18/2024 Newton Score Blood Edema Fundus Height Fundus Units Glucose Ketones Leukocytes Nitrite Labor Signs Protein Cervic Dilation Cervic Effacement Cervic Station neg none none trace Type Weight in lbs Pre/Post Dialysis Refused 213.254669704593 BP Diastolic BP Location Tested BP Systolic [...] Weight in lbs Pre/Post Dialysis Refused Weight 214.877932543350 BP Diastolic BP Location Tested BP Systolic [...] Weight in lbs Pre/Post Dialysis Refused Weight 215.532948455773 BP Diastolic BP Location Tested BP Systolic [...] Weight in lbs Pre/Post Dialysis Refused Weight 224.312452758945 BP Diastolic BP Location Tested BP Systolic BP Type 79 L arm 121 sitting Fetus Heart Rate Present A 140 Fetus Movement A Yes Comments Patient c/o [place] Bean, s tates in some pelvic pain. [...] Weight in lbs Pre/Post Dialysis Refused Weight 223.799900173536 BP Diastolic BP Location Tested BP Systolic [...] Weight in lbs Pre/Post Dialysis Refused Weight 227.2408801632 BP Diastolic BP Location Tested BP Systolic BP Type 76 L arm 114 sitting Fetus Heart Rate Present A Present Fetus Movement A Yes Comments Good movement. No ctx, LOF, VB. NST/BPP at [place], 06/10. [place] for GDMA2 on 09/06 in PM. GBS collected today. RTC 1 week. Flowsheet Date 08/26/2024 Newton Score Blood Edema Fundus Height Fundus Units Glucose Ketones Leukocytes Nitrite Labor Signs Protein Cervic Dilation Cervic Effacement Cervic Station Type Weight in lbs Pre/Post Dialysis Refused 229.197428522226 BP Diastolic BP Location Tested BP Systolic [...] Estim ated Date of Delivery false Thalassemia (Faroese, Greenlandic, Mediterranean, Or Background): MCV < 80 false Neural Tube Defect (Meningomyelocele, Spina Bifi da, Or Anencephaly) false Congenital Heart Defect false Down Syndrome false Fernando-Sachs (eg, Roman Catholic, Cajun, Spanish-[place]) f alse Genna Disease false Sickle Cell [...]
--- OUTSIDE RECORDS SUMMARY | 2024-09-13 03:17 | XMS_ITS | Continuity of Care Document ---
Author Organization [facility] Kimberly Address [address] [place] [address] [place] [address] Care Team Providers Care Senior Executive Assistant Name Role Phone SABRINA MOTT Primary Care Provider [phone] Assessment No assessment recorded. Plan of Treatment Reminders Order Date Submit Date Provider Last Modified By Organization Details Last Modified Time Details Appointments None recorded. Lab None recorded. Referral None recorded. Procedures None recorded. Surgeries None recorded. Imaging US, obstetric, biophysical profile + non-stress test 2023 024 [email or web address] [address], [address], [place], [address], 19:53:43 Medication Orders None recorded. Patient TargetsNo targets recorded. Patient InstructionsNo instructions recorded. Reason for Referral None Reported. Results Created Date Observation Date Name Description Value Unit Range Abnormal Flag Note LastModifiedBy Organization Detail LastModifiedTime 02/27/2002/27/2024 US, obste tric, 1st trime ster No observ ation record ed. MILTON [address], [place], [address], 03/04/2024 23:04:35 03/08/2003/08/2024 US, obste tric, nucha l trans lucen cy No observ ation record ed. [email or web address] Kimberly [address], [place], [address], 03/08/2024 18:13:20 03/08/2003/08/2024 US, obste tric, 1st trime ster No observ ation record ed. [email or web address] Kimberly [address], [place], [address], 03/08/2024 18:13:12 03/08/20 24 03/08/2024 US, obste tric, nucha l trans lucen cy No observ ation record ed. [email or web address] [address], [place], [address], 03/08/2024 20:58:25 04/20/20 24 04/20/2024 US, obste tric, follo w-up No observ ation record ed. [email or web address] [address], [place], [address], 04/21/2024 17:06:55 08/02/20 24 08/02/2024 US, obste tric, follo w-up No observ ation record ed. [email or web address] Kimberly [address], [place], [address], 08/02/2024 10:13:50 08/02/2008/02/2024 US, obste tric, follo w-up No observ ation record ed. [email or web address] [address], [place], [address], 08/05/2024 20:29:18 08/13/2008/13/2024 non-s tress test No observ ation record ed. [email or web address] [address]ly [address], [place], [address], 08/13/2024 12:48:12 08/13/20 24 08/13/2024 US, tj tric, bioph ysica l profi le No observ ation record ed. [email or web address] [address], [place], [address], 08/14/2024 23:23:31 08/13/20 24 08/13/2024 US, obste tric, bioph ysica l profi le + non-s tress test No observ ation record ed. [facility] [address], [place], [address], 08/13/2024 17:26:10 08/17/20 24 08/17/2024 non-s tress test No observ ation record ed. [address] [address], [place], [address], 08/19/2024 11:56:26 08/21/20 24 08/21/2024 non-s tress test No observ ation record ed. [address] [address], [place], [address], 08/31/2024 11:25:22 08/26/20 24 08/26/2024 non-s tress test No observ ation record ed. [email or web address] Not Available 2023 11:08:41 09/03/19 25 09/03/2024 non-s tress test No observ ation record ed. [address] [address], [place], [address], 09/06/2024 13:42:56 Result Notes None recorded. Problems Name Problem SNOMED Code Status Onset Date Resolution Date Notes Provider Name and Address Organization Details Recorded Time 03644137 Active 2023 Ashley Epstein null, [facility] 4 14:41:40 Marijuana user 988981997 Active +UDS Osiris Lopez [facility] 4 14:12:40 Gestational diabetes mellitus 85637092 Active BS QID, serial growth 08/04 - Lantus 5 units @HS Larissa Delongender valdes null, [facility] 4 15:11:40 Gestational diabetes mellitus 35114581 Active BS QID, serial growth 08/04 - Lantus 5 units @HS Larissa valdes [facility] 15:11:40 Problem Notes None recorded. Procedures Surgical History Date Name Laterality Status Provider Name and Address Organization Details Recorded Time 09/01/19 19 Date of Last Pap Smear completed [facility] 02/27/2024 14:32:44 09/01/19 04 procedure on knee completed [facility] 02/27/2024 14:36:05 09/01/19 00 Tonsillectomy completed [facility] 02/27/2024 14:36:17 Imaging Results Imaging Date Name Status LastModified by Organiz ation Details LastModified Time 08/13/2024 US, obstetric, biophysical profile + non-stress test completed [place] [address], [place], [address], 08/13/2024 17:26:10 Procedure Notes None recorded. Medical Equipment None Reported. Allergies No known drug allergies Medications Name Sig Start Date Stop Date Status Note LastModified by Organization Details LastModified Time cefadroxi l 500 mg capsule take 1 capsule by oral route every 12 hours for 10 days 07/26 completed [facility] ed Elsewher e: No Locat ion: [facility] odify By: steve ghosh DateTime : 07/17/20 16 02:00:00 PM Not Available Not Available Not Available OneTouch Ultra Test strips USE TO TEST 4 TIMES A DAY active Not Available Not Available No t Available 09/20 (28) 1 mg-20 mcg (21)/75 mg (7) tablet TAKE 1 TABLET BY ORAL ROUTE EVERY DAY 10/16 completed Prescrib ed Elsewher e: No Locat ion: [facility] odify By: lawanda cortes DateTime : 09/09/19 [...] Prescrib ed Elsewher e: Yes Loca tion: [facility] M odify By: deandre cortes DateTime [...] Updated DateTime 08/13/2024 165.1 cm 37.1 kg/m2 115444.1 g 109 mm[Hg] 75 mm[Hg] Phoebe Johnson [facility] 12:40:27 Social History Question Answer Notes LastModified by Organizat ion Details LastModified Time Tobacco Smoking Status Never Smoker Ashley Acostase mendez [facility] 02/27/2024 14:35:43 What Is Your Level Of Alcohol Consumption? Occasional Information not available 02/27/2024 Are You Blind Or Do You Have Difficulty Seeing? No Information n ot available 02/27/2024 What Is Your Level Of Caffeine Consumption? Occasional [email or web address] Information not available 04/20/2024 In The 14 [...] Type Of Diet Are You Following? REGULAR [email or web address] Information n ot available 04/20/2024 Have You Ever Been Counseled For Unhealthy Alcohol Use? No [email or web address] Information not available 04/20/2024 Do You Have Smoke And Carbon Monoxide Detectors In Your Home? Yes [email or web address] Information not available 04/20/2024 Do You Use Any Illicit Or Recreational Drugs? No [email or web address] Information not available 04/20/2024 Do You Use Sunscreen Routinely? Yes [email or web address] Information not available 04/20/2024 Has Tobacco Cessation Counseling Been Provided? No [email or web address] Information not available 04/20/2024 Do You Or Have You Ever Used Any Other Forms Of Tobacco Or Nicotine? No [email or web address] Information not available 04/20/2024 Sex: Unknown Functional [...] 02/27/2024 What is your exercise level? Occasional [email or web address] Information not available 04/20/2024 Mental Status None recorded. Family History Relationship Description Onset Age of this Age Resolved Age Notes LastModified by Organization Details LastModified Time Paternal Grandmother Malignant tumor of breast Not available 2023 14:34:11 Paternal Grandmother Mental disorder Not available 2023 14:35:05 Maternal Grandmother Malignant tumor of cervix Not available 2023 14:34:17 Maternal Grandmother Malignant tumor of ovary [email or web address] Not available 04/20 17:22:27 Paternal Grandfather Malignant [...] Recorded Time Tdap 08/13/2024 completed Phoebe mendez, [facility] 08/20/2024 14:17:19 Influenza, MDCK, trivalent, PF 08/13/2024 completed Phoebe mendez, [facility] 08/20/2024 14:17:19 Past Encounters Encounter ID Performer Location Encounter Start Date Encounter Closed Date Diagnosis/Indication Diagnosis SNOMED-CT Code Diagnosis ICD10 Code Diagnosis Note [id number] KESHA FIORE MD Kimberly [address] [address] 07/16/2024 09:24:25 07/16/2024 11:05:08 Gestational diabetes mellitus 17973499 O24.419 Gestation period, 31 weeks 00618777 Z3A.31 - continue pNV [id number] [facility] [address],[place] [address] 08/02/2024 09:14:02 08/02/2024 10:35:44 Gestational diabetes mellitus 87145853 O24.410 Z3A.34 [id number] KESHA FIORE MD Kimberly [address],[place] [address] 08/04/2024 13:56:29 08/04/2024 15:06:05 Active or passive immunization 030286802 Z23 - Rx sent for RSV vaccine Gestationa l diabetes mellitus class A2 12755348 O24.414 - will start lantus at nighttime- weekly testing Gestation period, 34 weeks 64198496 Z3A.34 - continue PNV [id number] Phoebe Johnson [place] [address],[place] [address] 08/13/2024 10:58:31 08/13/2024 13:02:17 Gestational diabetes mellitus 63445435 O24.419 [id number] KESHA FIORE MD Kimberly [address] [address] 08/13/2024 10:58:55 08/13/2024 17:08:31 Gestational diabetes mellitus class A2 52854777 O24.414 - controlled on lantus 5u qHS- continue weekly testing- plan for delivery by 39w6d Gestation period, 35 weeks 97496407 Z3A.35 [id number] [facility] [address] [address] 08/13/2024 10:59:07 08/13/2024 16:49:41 Gestational diabetes mellitus 03913325 O24.414 Z3A.35 Health Concerns Section Related Observation LastModified by Organization Detai ls LastModified Time None Recorded Concern Status LastModified by Organization Details LastModified Time None Recorded Payers Encounter Date Sequence Insurance Name Policy Number Policy Mehta Covered Member ID Mehta Member ID Guarantor Name 08/13/2024 1 [facility] (MEDICAID HMO) [id number] Diana Chiu [id number] Diana Chiu OBGyn Episode Ob Episode Information Episode Created Date Number of Fetuses Patient Bloodtype Patient rh Status Prepregnancy Weight lbs Domestic Partner Domestic Partner Phone Father Name Railroad 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 [employer]er Status 02/27/20 24 1 AB Negative 194 OPEN Fetus Data First Name Last Name Admitted to NICU Weight (g) Sex Living Outcome Pediatric Complications Fetus ID Race Codes Race Delivery Type [id number] Problems Problem Notes Problem Name Start Date End Date Resolution Snomed Code Not e Marijuana user [id number] +UDS Gestational diabetes mellitus 61381220 BS QID, serial ugswev84/4 - Lantus 5 units @[facility] Tomas Calculation [...] Gestation 0 [email or web address] 02/27/2024 09/13/19 25 0 Pre- Flowsheet Flowsheet Date 02/27/2024 Newton Score Blood Edema Fundus Height Fundus Units Glucose Ketones Leukocytes Nitrite Labor Signs Protein Cervic Dilation Cervic Effacement Cervic Station Type Weight in lbs Pre/Post Dialysis Refused Weight 194.691685859612 BP Diastolic BP Location Tested BP Systolic [...] Type Weight in lbs Pre/Post Dialysis Refused 192.363031137625 BP Diastolic BP Location Tested BP Systolic [...] Type Weight in lbs Pre/Post Dialysis Refused 196.385905642958 BP Diastolic BP Location Tested BP Systolic [...] Type Weight in lbs Pre/Post Dialysis Refused 203.85357314046 BP Diastolic BP Location Tested BP Systolic BP Type 69 L arm 100 sitting Fetus Heart Rate Present A 140 Fetus Movement A Yes Comments Good movement. No cram ping or bleeding. Discussed labs and GCT for next visit, will go to [facility] for labs and Rhogam. Carpal tunnel improving. 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 RTC 4 weeks. Flowsheet Date 06/18/2024 Newton Score Blood Edema Fundus Height Fundus Units Glucose Ketones Leukocytes Nitrite Labor Signs Protein Cervic Dilation Cervic Effacement Cervic Station neg none none trace Type Weight in lbs Pre/Post Dialysis Refused 213.308345601779 BP Diastolic BP Location Tested BP Systolic [...] Weight in lbs Pre/Post Dialysis Refused Weight 214.425469063868 BP Diastolic BP Location Tested BP Systolic [...] Weight in lbs Pre/Post Dialysis Refused Weight 215.374180470489 BP Diastolic BP Location Tested BP Systolic [...] Weight in lbs Pre/Post Dialysis Refused Weight 224.544920386664 BP Diastolic BP Location Tested BP Systolic BP Type 79 L arm 121 sitting Fetus Heart Rate Present A 140 Fetus Movement A Yes Comments Patient c/o [place], s tates in some pelvic pain. [...] Weight in lbs Pre/Post Dialysis Refused Weight 223.795577726435 BP Diastolic BP Location Tested BP Systolic BP Type 75 L arm 109 sitting Fetus Heart Rate Present A Present Fetus Movement A Yes Comments Doing well, no issues. Good movement. No cramping or bleeding. Glucose well controlled, one elevated fasting level since starting lantus. BPP 10/ today. Discussed GBS for next visit. RTC [...] Weight in lbs Pre/Post Dialysis Refused Weight 227.0863641759 BP Diastolic BP Location Tested BP Systolic BP Type 76 L arm 114 sitting Fetus Heart Rate Present A Present Fetus Movement A Yes Comments Good movement. No ctx, LOF, VB. [place]BPP [place], 06/10. [place] for GDMA2 on 09/06 in PM. GBS collected today. RTC 1 week. Flowsheet Date 08/26/2024 Newton Score Blood Edema Fundus Height Fundus Units Glucose Ketones Leukocytes Nitrite Labor Signs Protein Cervic Dilation Cervic Effacement Cervic Station Type Weight in lbs Pre/Post Dialysis Refused 229.205041873996 BP Diastolic BP Location Tested BP Systolic [...] Estim ated Date of Delivery false Thalassemia (Kyrgyz, Bulgarian, Mediterranean, Or Background): MCV < 80 false Neural Tube Defect (Meningomyelocele, Spina Bifi da, Or Anencephaly) false Congenital Heart Defect false Down Syndrome false Fernando-Sachs (eg, Mandaeism, Cajun, Gabonese-Crosby) f alse Genna Disease false Sickle Cell Disease Or Trait () false Hemophilia Or Other Blood Disorders false Muscular Dystrophy false Cystic Fibrosis false Brighton's Chorea false Intellectual Disability/Autism false If Yes, [...]
--- OUTSIDE RECORDS SUMMARY | 2024-09-13 03:17 | XMS_ITS | Continuity of Care Document ---
Author Organization [facility] Address [address] [place] [address] [place] [address] Care Team Providers Care Mill Control Operator Name Role Phone SABRINA MOTT Primary Care Provider Assessment No assessment recorded. Plan of Treatment Reminders Order Date Submit Date Provider Last Modified By Organization Details Last Modified Time Details Appointments None record ed. Lab None record ed. Referral None record ed. Procedures None record ed. Surgeries None record ed. Imaging non-st ress test 024 08/13/20 24 [email or web address] [address], [address], [place], [address], 05:56:58 Medication Orders None record ed. Patient TargetsNo targets recorded. Patient InstructionsNo instructions recorded. Reason for Referral None Reported. Results Created Date Observation Date Name Description Value Unit Range Abnormal Flag Note LastModifiedBy Organization Detail LastModifiedTime 02/27/2002/27/2024 US, obste tric, 1st trime ster No observ ation record ed. MILTON [address], [place], [address], 03/04/2024 23:04:35 03/08/2003/08/2024 US, obste tric, nucha l trans lucen cy No observ ation record ed. [email or web address] [facility] [address], [place], [address], 03/08/2024 18:13:20 03/08/20 24 03/08/2024 US, obste tric, 1st trime ster No observ ation record ed. [email or web address] [facility] [address], [place], [address], 03/08/2024 18:13:12 03/08/20 24 03/08/2024 US, obste tric, nucha l trans lucen cy No observ ation record ed. [email or web address] [address], [place], [address], 03/08/2024 20:58:25 04/20/20 24 04/20/2024 US, obste tric, follo w-up No observ ation record ed. [address], [place], [address], 04/21/2024 17:06:55 08/02/20 24 08/02/2024 US, obste tric, follo w-up No observ ation record ed. [email or web address] [address], [place], [address], 08/02/2024 10:13:50 08/02/20 24 08/02/2024 US, obste tric, follo w-up No observ ation record ed. [email or web address] [address], [place], [address], 08/05/2024 20:29:18 08/13/20 24 08/13/2024 non-s tress test No observ ation record ed. [email or web address] [address], [place], [address], 08/13/2024 12:48:12 08/13/20 24 08/13/2024 US, tj tric, bioph ysica l profi le No observ ation record ed. [email or web address] [address], [place], [address], 08/14/2024 23:23:31 08/13/20 24 08/13/2024 US, obste tric, bioph ysica l profi le + non-s tress test No observ ation record ed. [email or web address] [address], [place], [address], 08/13/2024 17:26:10 08/17/20 24 08/17/2024 non-s tress test No observ ation record ed. [address] [facility], [place], [address], 08/19/2024 11:56:26 08/21/20 24 08/21/2024 non-s tress test No observ ation record ed. [address] [address], [place], [address], 08/31/2024 11:25:22 08/26/20 24 08/26/2024 non-s tress test No observ ation record ed. [email or web address] Not Available 2023 11:08:41 09/03/19 25 09/03/2024 non-s tress test No observ ation record ed. [address] [facility], [place], [address], 09/06/2024 13:42:56 Result Notes None recorded. Problems Name Problem SNOMED Code Status Onset Date Resolution Date Notes Provider Name and Address Organization Details Recorded Time 65533393 Active 2023 Ashley Epstein [facility], [facility] 4 14:41:40 Marijuana user 676361119 Active +UDS Osiris Lopez [facility] 4 14:12:40 Gestational diabetes mellitus 92529799 Active BS QID, serial growth 08/04 - Lantus 5 units @HS Larissa Miracle valdes [facility], [facility] 4 15:11:40 Gestational diabetes mellitus 05427610 Active BS QID, serial growth 08/04 - Lantus 5 units @HS Larissa valdes [facility] 15:11:40 Problem Notes None recorded. Procedures Surgical History Date Name Laterality Status Provider Name and Address Organization Details Recorded Time 09/01/19 19 Date of Last Pap Smear completed [facility] 02/27/2024 14:32:44 09/01/19 04 procedure on knee completed [facility] 02/27/2024 14:36:05 09/01/19 00 Tonsillectomy completed [facility] 02/27/2024 14:36:17 Imaging Results Imaging Date Name Status LastModified by Organiz ation Details LastModified Time 08/13/2024 non-stress test completed [email or web address] [address], [place], [address], 08/13/2024 12:48:12 Procedure Notes None recorded. Medical Equipment None Reported. Allergies No known drug allergies Medications Name Sig Start Date Stop Date Status Note LastModified by Organization Details LastModified Time cefadroxi l 500 mg capsule take 1 capsule by oral route every 12 hours for 10 days 07/26 completed Prescrib ed Elsewher e: No Locat ion: [facility] odify By: steve ghosh DateTime : [...] Elsewher e: No Locat ion: Rond[facility] keenan [facility] odify By: esdrasy Cassidy cortes DateTime : 09/09/19 17 09:23:26 [...] Elsewher e: Yes Loca tion: Nat hussein [facility] M odify By: deandre cortes DateTime [...] Updated DateTime 08/13/2024 165.1 cm 37.1 kg/m2 156078.1 g 109 mm[Hg] 75 mm[Hg] Phoebe Johnson [facility] 12:40:27 Social History Question Answer Notes LastModified by Organizat ion Details LastModified Time Tobacco Smoking Status Never Smoker Ashley Acostase mendez [facility] 02/27/2024 14:35:43 What Is Your Level Of Alcohol Consumption? Occasional Information not available 02/27/2024 Are You Blind Or Do You Have Difficulty Seeing? No Information n ot available 02/27/2024 What Is Your Level Of Caffeine Consumption? Occasional [email or web address] Information not available 04/20/2024 In The 14 [...] Type Of Diet Are You Following? REGULAR [email or web address] Information n ot available 04/20/2024 Have You Ever Been Counseled For Unhealthy Alcohol Use? No [email or web address] Information not available 04/20/2024 Do You Have Smoke And Carbon Monoxide Detectors In Your Home? Yes [email or web address] Information not available 04/20/2024 Do You Use Any Illicit Or Recreational Drugs? No [email or web address] Information not available 04/20/2024 Do You Use Sunscreen Routinely? Yes [email or web address] Information not available 04/20/2024 Has Tobacco Cessation Counseling Been Provided? No Information not available 04/20/2024 Do You Or Have You Ever Used Any Other Forms Of Tobacco Or Nicotine? No [email or web address] Information not available 04/20/2024 Sex: Unknown Functional [...] available 2023 14:35:05 Paternal Grandfather Chronic hepatitis [email or web address] Not available 04/20 17:22:55 Mother Hypertensive disorder Not available 2023 14:34:37 Mother Mental disorder Not available 2023 14:35:05 Father Mental disorder Not available 2023 14:35:05 Unspecified Relation Seizure disorder FOB MOTHER [email or web address] Not available 04/20/2024 15:26:35 Notes:Maternal grandmother: Ovarian [...] Recorded Time Tdap 08/13/2024 completed Phoebe mendez, [facility] 08/20/2024 14:17:19 Influenza, MDCK, trivalent, PF 08/13/2024 completed Phoebe mendez, [facility] 08/20/2024 14:17:19 Past Encounters Encounter ID Performer Location Encounter Start Date Encounter Closed Date Diagnosis/Indication Diagnosis SNOMED-CT Code Diagnosis ICD10 Code Diagnosis Note [id number] KESHA FIORE MD [facility] [address] [address] 07/16/2024 09:24:25 07/16/2024 11:05:08 Gestational diabetes mellitus 64879342 O24.419 Gestation period, 31 weeks 63213082 Z3A.31 - continue pNV [id number] Graciela [facility] [address],[place] [address] 08/02/2024 09:14:02 08/02/2024 10:35:44 Gestational diabetes mellitus 45161459 O24.410 Z3A.34 [id number] KESHA FIORE MD [facility] [address],[place] [address] 08/04/2024 13:56:29 08/04/2024 15:06:05 Active or passive immunization 150202744 Z23 - Rx sent for RSV vaccine Gestationa l diabetes mellitus class A2 17940962 O24.414 - will start lantus at nighttime- weekly testing Gestation period, 34 weeks 77680714 Z3A.34 - continue PNV [id number] Phoebe Johnson [facility] [address],[place] [address] 08/13/2024 10:58:31 08/13/2024 13:02:17 Gestational diabetes mellitus 27688417 O24.419 [id number] KESHA FIORE MD [facility] [address] [address] 08/13/2024 10:58:55 08/13/2024 17:08:31 Gestational diabetes mellitus class A2 80637385 O24.414 - controlled on lantus 5u qHS- continue weekly testing- plan for delivery by 39w6d Gestation period, 35 weeks 44854232 Z3A.35 [id number] [facility] [address] [address] 08/13/2024 10:59:07 08/13/2024 16:49:41 Gestational diabetes mellitus 99161898 O24.414 Z3A.35 Health Concerns Section Related Observation LastModified by Organization Detai ls LastModified Time None Recorded Concern Status LastModified by Organization Details LastModified Time None Recorded Payers Encounter Date Sequence Insurance Name Policy Number Policy Mehta Covered Member ID Mehta Member ID Guarantor Name 08/13/2024 1 [facility] (MEDICAID HMO) [id number] Diana Chiu [id number] Diana Chiu OBGyn Episode Ob Episode Information Episode Created Date Number of Fetuses Patient Bloodtype Patient rh Status Prepregnancy Weight lbs Domestic Partner Domestic Partner Phone Father Name Director Of Content Marketing Status 02/27/20 24 1 AB Negative 194 OPEN Fetus Data First Name Last Name Admitted to NICU Weight (g) Sex Living Outcome Pediatric Complications Fetus ID Race Codes Race Delivery Type [id number] Problems Problem Notes Problem Name Start Date End Date Resolution Snomed Code Not e Marijuana user 500409619 +UDS Gestational diabetes mellitus 00449253 BS QID, serial zcrocn83/4 - Lantus 5 units @HS Tomas Calculation [...] Weight in lbs Pre/Post Dialysis Refused Weight 194.710998942713 BP Diastolic BP Location Tested BP Systolic [...] Type Weight in lbs Pre/Post Dialysis Refused 192.423950734797 BP Diastolic BP Location Tested BP Systolic [...] Type Weight in lbs Pre/Post Dialysis Refused 196.556675136922 BP Diastolic BP Location Tested BP Systolic [...] Type Weight in lbs Pre/Post Dialysis Refused 203.78017837954 BP Diastolic BP Location Tested BP Systolic BP Type 69 L arm 100 sitting Fetus Heart Rate Present A 140 Fetus Movement A Yes Comments Good movement. No cram ping or bleeding. Discussed labs and GCT for next visit, will go to [place] for labs and Rhogam. Carpal tunnel improving. 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 RTC 4 weeks. Flowsheet Date 06/18/2024 Newton Score Blood Edema Fundus Height Fundus Units Glucose Ketones Leukocytes Nitrite Labor Signs Protein Cervic Dilation Cervic Effacement Cervic Station neg none none trace Type Weight in lbs Pre/Post Dialysis Refused 213.390258182742 BP Diastolic BP Location Tested BP Systolic [...] Weight in lbs Pre/Post Dialysis Refused Weight 214.620463190583 BP Diastolic BP Location Tested BP Systolic [...] Weight in lbs Pre/Post Dialysis Refused Weight 215.176669770540 BP Diastolic BP Location Tested BP Systolic [...] Weight in lbs Pre/Post Dialysis Refused Weight 224.907298799792 BP Diastolic BP Location Tested BP Systolic BP Type 79 L arm 121 sitting Fetus Heart Rate Present A 140 Fetus Movement A Yes Comments Patient c/o [place], s tates in some pelvic pain. [...] Weight in lbs Pre/Post Dialysis Refused Weight 223.580921919251 BP Diastolic BP Location Tested BP Systolic BP Type 75 L arm 109 sitting Fetus Heart Rate Present A Present Fetus Movement A Yes Comments Doing well, no issues. Good movement. No cramping or bleeding. Glucose well controlled, one elevated fasting level since starting lantus. BPP 10 today. Discussed GBS for next visit. RTC [...] Weight in lbs Pre/Post Dialysis Refused Weight 227.6147032127 BP Diastolic BP Location Tested BP Systolic BP Type 76 L arm 114 sitting Fetus Heart Rate Present A Present Fetus Movement A Yes Comments Good movement. No ctx, LOF, VB. NST/BPP at [place], 06/10. MIL for GDMA2 on 09/06 in PM. GBS collected today. RTC 1 week. Flowsheet Date 08/26/2024 Newton Score Blood Edema Fundus Height Fundus Units Glucose Ketones Leukocytes Nitrite Labor Signs Protein Cervic Dilation Cervic Effacement Cervic Station Type Weight in lbs Pre/Post Dialysis Refused 229.983818896035 BP Diastolic BP Location Tested BP Systolic [...] ated Date of Delivery false Thalassemia (Tamazight, Malawian, Mediterranean, Or Background): MCV < 80 false Neural Tube Defect (Meningomyelocele, Spina Bifi da, Or Anencephaly) false Congenital Heart Defect false Down Syndrome false Fernando-Sachs (eg, Mormonism, Cajun, Yakut-Libyan) f alse Genna Disease false Sickle Cell Disease Or Trait () false Hemophilia Or Other Blood Disorders false Muscular Dystrophy false Cystic Fibrosis false Licking's Chorea false Intellectual Disability/Autism false If Yes, [...]
--- OUTSIDE RECORDS SUMMARY | 2024-09-13 03:17 | XMS_ITS | Continuity of Care Document ---
Author Organization [facility] [place] Address [address] [place] [address] [place] [address] Care Team Providers Care Clearing Inspector Name Role Phone SABRINA MOTT Primary Care Provider [phone] Assessment No assessment recorded. Plan of Treatment Reminders Order Date Submit Date Provider Last Modified By Organization Details Last Modified Time Details Appointments None record ed. Lab None record ed. Referral None record ed. Procedures None record ed. Surgeries None record ed. Imaging US, obstet jhoan, follow -up 024 08/02/20 24 [email or web address] [place], [address], [place], [address], 20:16:33 Medication Orders None record ed. Patient TargetsNo targets recorded. Patient InstructionsNo instructions recorded. Reason for Referral None Reported. Results Created Date Observation Date Name Description Value Unit Range Abnormal Flag Note LastModifiedBy Organization Detail LastModifiedTime 02/27/2002/27/2024 US, obste tric, 1st trime ster No observ ation record ed. MILTON [address], [place], [address], 03/04/2024 23:04:35 03/08/2003/08/2024 US, obste tric, nucha l trans lucen cy No observ ation record ed. [email or web address] [place] [address], [place], [address], 03/08/2024 18:13:20 03/08/20 24 03/08/2024 US, obste tric, 1st trime ster No observ ation record ed. [email or web address] [place] [address], [place], [address], 03/08/2024 18:13:12 03/08/20 24 03/08/2024 US, obste tric, nucha l trans lucen cy No observ ation record ed. [email or web address] [address], [place], [address], 03/08/2024 20:58:25 04/20/20 24 04/20/2024 US, obste tric, follo w-up No observ ation record ed. [address], [place], [address], 04/21/2024 17:06:55 08/02/20 24 08/02/2024 US, obste tric, follo w-up No observ ation record ed. [email or web address] [place] [address], [place], [address], 08/02/2024 10:13:50 08/02/20 24 08/02/2024 US, obste tric, follo w-up No observ ation record ed. [email or web address] [address], [place], [address], 08/05/2024 20:29:18 08/13/20 24 08/13/2024 non-s tress test No observ ation record ed. [email or web address] [place] [address], [place], [address], 08/13/2024 12:48:12 08/13/20 24 08/13/2024 US, tj tric, bioph ysica l profi le No observ ation record ed. [email or web address] [address], [place], [address], 08/14/2024 23:23:31 08/13/20 24 08/13/2024 US, obste tric, bioph ysica l profi le + non-s tress test No observ ation record ed. [facility] [address], [place], [address], 08/13/2024 17:26:10 08/17/20 24 08/17/2024 non-s tress test No observ ation record ed. [address] [facility], [place], [address], 08/19/2024 11:56:26 08/21/20 24 08/21/2024 non-s tress test No observ ation record ed. [address] [address], [place], [address], 08/31/2024 11:25:22 08/26/20 24 08/26/2024 non-s tress test No observ ation record ed. [email or web address] Not Available 2023 11:08:41 09/03/19 25 09/03/2024 non-s tress test No observ ation record ed. [address] [facility], [place], [address], 09/06/2024 13:42:56 Result Notes None recorded. Problems Name Problem SNOMED Code Status Onset Date Resolution Date Notes Provider Name and Address Organization Details Recorded Time 68709156 Active 2023 Ashley Epstein null, [facility] 4 14:41:40 Marijuana user 491283568 Active +UDS Osiris Lopez [facility] 4 14:12:40 Gestational diabetes mellitus 70609553 Active BS QID, serial growth 08/04 - Lantus 5 units @[facility] Larissa Miracle [facility], [facility] 4 15:11:40 Gestational diabetes mellitus 91757737 Active BS QID, serial growth 08/04 - Lantus 5 units @[facility] Larissa valdes [facility] 15:11:40 Problem Notes None recorded. Procedures Surgical History Date Name Laterality Status Provider Name and Address Organization Details Recorded Time 09/01/19 19 Date of Last Pap Smear completed [facility] 02/27/2024 14:32:44 09/01/19 04 procedure on knee completed [facility] 02/27/2024 14:36:05 09/01/19 00 Tonsillectomy completed [facility] 02/27/2024 14:36:17 Imaging Results Imaging Date Name Status LastModified by Organiz ation Details LastModified Time 08/02/2024 US, obstetric, follow-up completed [email or web address] [place] [address], [place], [address], 08/02/2024 10:13:50 08/02/2024 US, obstetric, follow-up completed [address], [place], [address], 08/05/2024 20:29:18 Procedure Notes None recorded. Medical Equipment None Reported. Allergies No known drug allergies Medications Name Sig Start Date Stop Date Status Note LastModified by Organization Details LastModified Time cefadroxi l 500 mg capsule take 1 capsule by oral route every 12 hours for 10 days 07/26 completed Prescrib ed Amalia e: No Locat ion: [facility] odify By: steve ghosh DateTime : 07/17/20 16 02:00:00 PM Not Available Not Available Not Available OneTouch Ultra Test strips USE TO TEST 4 TIMES A DAY active Not Available Not Available No t Available 09/20 (28) 1 mg-20 mcg (21)/75 mg (7) tablet TAKE 1 TABLET BY ORAL ROUTE EVERY DAY 10/16 completed Prescrib ed Elsewher e: No Locat ion: [facility] M odify By: lawanda Benjamin r DateTime : 09/09/19 17 09:23:26 AM Not [...] Prescrib ed Elsewher e: Yes [facility] By: deandre cortes DateTime : [...] Tobacco Smoking Status Never Smoker Ashley Epstein [facility] 02/27/2024 14:35:43 What Is Your Level Of Alcohol Consumption? Occasional Information not available 02/27/2024 Are You Blind Or Do You Have Difficulty Seeing? No Information n ot available 02/27/2024 What Is Your Level Of Caffeine Consumption? Occasional [email or web address] Information not available 04/20/2024 In The 14 [...] Type Of Diet Are You Following? REGULAR [email or web address] Information n ot available 04/20/2024 Have You Ever Been Counseled For Unhealthy Alcohol Use? No Information not available 04/20/2024 Do You Have Smoke And Carbon Monoxide Detectors In Your Home? Yes [email or web address] Information not available 04/20/2024 Do You Use Any Illicit Or Recreational Drugs? No [email or web address] Information not available 04/20/2024 Do You Use Sunscreen Routinely? Yes [email or web address] Information not available 04/20/2024 Has Tobacco Cessation Counseling Been Provided? No [email or web address] Information not available 04/20/2024 Do You Or Have You Ever Used Any Other Forms Of Tobacco Or Nicotine? No [email or web address] Information not available 04/20/2024 Sex: Unknown Functional [...] 02/27/2024 What is your exercise level? Occasional [email or web address] Information not available 04/20/2024 Mental Status None recorded. Family History Relationship Description Onset Age of this Age Resolved Age Notes LastModified by Organization Details LastModified Time Paternal Grandmother Malignant tumor of breast Not available 2023 14:34:11 Paternal Grandmother Mental disorder Not available 2023 14:35:05 Maternal Grandmother Malignant tumor of cervix Not available 2023 14:34:17 Maternal Grandmother Malignant tumor of ovary [email or web address] Not available 04/20 17:22:27 Paternal Grandfather Malignant tumor of colon Not available 2023 14:34:24 Paternal Grandfather Hypertensive disorder Not available 2023 14:34:37 Paternal Grandfather Mental disorder Not available 2023 14:35:05 Paternal Grandfather Chronic hepatitis [email or web address] Not available 04/20 17:22:55 Mother Hypertensive disorder Not available 2023 14:34:37 Mother Mental disorder Not available 2023 14:35:05 Father Mental disorder Not available 2023 14:35:05 Unspecified Relation Seizure disorder FOB MOTHER [email or web address] Not available 04/20/2024 15:26:35 Notes:Maternal grandmother: Ovarian [...] Recorded Time Tdap 08/13/2024 completed Phoebe mendez, [facility] 08/20/2024 14:17:19 Influenza, MDCK, trivalent, PF 08/13/2024 completed Phoebe mendez, [facility] 08/20/2024 14:17:19 Past Encounters Encounter ID Performer Location Encounter Start Date Encounter Closed Date Diagnosis/Indication Diagnosis SNOMED-CT Code Diagnosis ICD10 Code Diagnosis Note [id number] KESHA FIORE MD [place] [address] [address] 07/16/2024 09:24:25 07/16/2024 11:05:08 Gestational diabetes mellitus 75627932 O24.419 Gestation period, 31 weeks 43822914 Z3A.31 - continue pNV [id number] [facility] [address] [address] 08/02/2024 09:14:02 08/02/2024 10:35:44 Gestational diabetes mellitus 30322691 O24.410 Z3A.34 Health Concerns Section Related Observation LastModified by Organization Detai ls LastModified Time None Recorded Concern Status LastModified by Organization Details LastModified Time None Recorded Payers Encounter Date Sequence Insurance Name Policy Number Policy Mehta Covered Member ID Mehta Member ID Guarantor Name 08/02/2024 1 [facility] (MEDICAID HMO) [id number] Diana Chiu [id number] Diana Chiu OBGyn Episode Ob Episode Information Episode Created Date Number of Fetuses Patient Bloodtype Patient rh Status Prepregnancy Weight lbs Domestic Partner Domestic Partner Phone Father Name Sign Maker Status 02/27/20 24 1 AB Negative 194 OPEN Fetus Data First Name Last Name Admitted to NICU Weight (g) Sex Living Outcome Pediatric Complications Fetus ID Race Codes Race Delivery Type [id number] Problems Problem Notes Problem Name Start Date End Date Resolution Snomed Code Not e Marijuana user 814671366 +UDS Gestational diabetes mellitus 59833065 BS QID, serial otlkyt73/ - Lantus 5 units @[facility] Tomas Calculation [...] Weight in lbs Pre/Post Dialysis Refused Weight 194.256300575271 BP Diastolic BP Location Tested BP Systolic [...] Type Weight in lbs Pre/Post Dialysis Refused 192.771537577041 BP Diastolic BP Location Tested BP Systolic [...] Type Weight in lbs Pre/Post Dialysis Refused 196.301411524609 BP Diastolic BP Location Tested BP Systolic [...] Type Weight in lbs Pre/Post Dialysis Refused 203.79653291877 BP Diastolic BP Location Tested BP Systolic BP Type 69 L arm 100 sitting Fetus Heart Rate Present A 140 Fetus Movement A Yes Comments Good movement. No cram ping or bleeding. Discussed labs and GCT for next visit, will go to [place] for labs and Rhogam. Carpal tunnel improving. 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 RTC 4 weeks. Flowsheet Date 06/18/2024 Newton Score Blood Edema Fundus Height Fundus Units Glucose Ketones Leukocytes Nitrite Labor Signs Protein Cervic Dilation Cervic Effacement Cervic Station neg none none trace Type Weight in lbs Pre/Post Dialysis Refused 213.475430971347 BP Diastolic BP Location Tested BP Systolic [...] Weight in lbs Pre/Post Dialysis Refused Weight 214.170979687586 BP Diastolic BP Location Tested BP Systolic [...] Weight in lbs Pre/Post Dialysis Refused Weight 215.005713260218 BP Diastolic BP Location Tested BP Systolic [...] Weight in lbs Pre/Post Dialysis Refused Weight 224.110615314753 BP Diastolic BP Location Tested BP Systolic [...] Weight in lbs Pre/Post Dialysis Refused Weight 223.114721201946 BP Diastolic BP Location Tested BP Systolic [...] Weight in lbs Pre/Post Dialysis Refused Weight 227.2493637883 BP Diastolic BP Location Tested BP Systolic BP Type 76 L arm 114 sitting Fetus Heart Rate Present A Present Fetus Movement A Yes Comments Good movement. No ctx, LOF, VB. NST[place]BPP at [place], 06/10. MIL for GDMA2 on 09/06 in PM. GBS collected today. RTC 1 week. Flowsheet Date 08/26/2024 Newton Score Blood Edema Fundus Height Fundus Units Glucose Ketones Leukocytes Nitrite Labor Signs Protein Cervic Dilation Cervic Effacement Cervic Station Type Weight in lbs Pre/Post Dialysis Refused 229.431987827451 BP Diastolic BP Location Tested BP Systolic [...] Estim ated Date of Delivery false Thalassemia (Thai, Uzbek, Mediterranean, Or Background): MCV < 80 false Neural Tube Defect (Meningomyelocele, Spina Bifi da, Or Anencephaly) false Congenital Heart Defect false Down Syndrome false Fernando-Sachs (eg, Protestant, Cajun, Icelandic-Montserratian) f alse Genna Disease false Sickle Cell [...]
--- OUTSIDE RECORDS SUMMARY | 2024-09-13 03:17 | XMS_ITS | Continuity of Care Document ---
Author Organization [facility] Address [address] [place] [address] Care Team Providers Care Protein Specialist Name Role Phone SABRINA OMTT Primary Care Provider Assessment No assessment recorded. [...] ation record ed. MILTONRUBY [address], [facility], [place], [address], 03/04/2024 23:04:35 03/08/2003/08/2024 US, obste tric, nucha l trans lucen cy No observ ation record ed. [email or web address] [place] [address], [place], [address], 03/08/2024 18:13:20 03/08/20 24 03/08/2024 US, obstkeenan tric, 1st trime ster No observ ation record ed. [email or web address] [place] [address], [place], [address], 03/08/2024 18:13:12 03/08/20 24 03/08/2024 US, obste tric, nucha l trans lucen cy No observ ation record ed. [email or web address] [address], [place], [address], 03/08/2024 20:58:25 04/20/20 24 04/20/2024 US, obste tric, follo w-up No observ ation record ed. [email or web address] [address], [place], [address], 04/21/2024 17:06:55 08/02/20 24 08/02/2024 US, obste tric, follo w-up No observ ation record ed. [email or web address] [place] [address], [place], [address], 08/02/2024 10:13:50 08/02/20 24 08/02/2024 US, obste tric, follo w-up No observ ation record ed. [address], [place], [address], 08/05/2024 20:29:18 08/13/20 24 08/13/2024 non-s tress test No observ ation record ed. [email or web address] [place] [address], [place], [address], 08/13/2024 12:48:12 08/13/20 24 08/13/2024 US, obste tric, bioph ysica l profi le No observ ation record ed. [email or web address] [address], [place], [address], 08/14/2024 23:23:31 08/13/20 24 08/13/2024 US, obste tric, bioph ysica l profi le + non-s tress test No observ ation record ed. [email or web address] [place] [address], [place], [address], 08/13/2024 17:26:10 08/17/20 24 08/17/2024 non-s tress test No observ ation record ed. [address] [place] [address], [place], [address], 08/19/2024 11:56:26 08/21/20 24 08/21/2024 non-s tress test No observ ation record ed. [address] [address], [place], [address], 08/31/2024 11:25:22 08/26/20 24 08/26/2024 non-s tress test No observ ation record ed. [email or web address] Not Available 2023 11:08:41 09/03/19 25 09/03/2024 non-s tress test No observ ation record ed. [address] [address], [place], [address], 09/06/2024 13:42:56 Result Notes None recorded. Problems Name Problem SNOMED Code Status Onset Date Resolution Date Notes Provider Name and Address Organization Details Recorded Time 28016280 Active 2023 Ashley Epstein [facility], [facility] 4 14:41:40 Marijuana user 447483134 Active +UDS Osiris Lopez [facility], [facility] 4 14:12:40 Gestational diabetes mellitus 24826221 Active BS QID, serial growth 12/4 - Lantus 5 units @HS Larissa valdes null, [facility] 4 15:11:40 Gestational diabetes mellitus 69979311 Active BS QID, serial growth 12/4 - Lantus 5 units @HS Larissa Rausch eier null, [facility] 4 15:11:40 Problem Notes None recorded. Procedures Surgical History Date Name Laterality Status Provider Name and Address Organization Details Recorded Time 09/01/19 19 Date of Last Pap Smear completed [facility] 02/27/2024 14:32:44 09/01/19 04 procedure on knee completed [facility] 02/27/2024 14:36:05 09/01/19 00 Tonsillectomy completed [facility] 02/27/2024 14:36:17 Imaging Results None recorded. Procedure Notes None recorded. Medical Equipment None Reported. Allergies No known drug allergies Medications Name Sig Start Date Stop Date Status Note LastModified by Organization Details LastModified Time cefadroxi l 500 mg capsule take 1 capsule by oral route every 12 hours for 10 days 07/26 completed Prescrib ed Elsewher e: No Locat ion: [facility] odify By: steve ghosh DateTime : 07/17/20 16 02:00:00 PM Not Available Not Available Not Available OneTouch Ultra Test strips USE TO TEST 4 TIMES A DAY active Not Available Not Available No t Available June FE 09/20 (28) 1 mg-20 mcg (21)/75 mg (7) tablet TAKE 1 TABLET BY ORAL ROUTE EVERY DAY 10/16 completed [facility] ed Elsewher e: No Locat ion: [facility] odify By: lawanda cortes DateTime : 09/09/19 [...] Prescrib ed Elsewher e: Yes [facility] By: deander cortes DateTime : 08/09/20 14 12:00:00 PM [...] Updated DateTime 08/13/2024 165.1 cm 37.1 kg/m2 750891.1 g 109 mm[Hg] 75 mm[Hg] Phoebe Johnson [facility] 12:40:27 Social History Question Answer Notes LastModified by Organizat ion Details LastModified Time Tobacco Smoking Status Never Smoker Ashley Acostase mendez, [facility] 02/27/2024 14:35:43 What Is Your Level Of Alcohol Consumption? Occasional Information not available 02/27/2024 Are You Blind Or Do You Have Difficulty Seeing? No Information n ot available 02/27/2024 What Is Your Level Of Caffeine Consumption? Occasional [email or web address] Information not available 04/20/2024 In The 14 [...] Type Of Diet Are You Following? REGULAR [email or web address] Information n ot available 04/20/2024 Have You Ever Been Counseled For Unhealthy Alcohol Use? No [email or web address] Information not available 04/20/2024 Do You Have Smoke And Carbon Monoxide Detectors In Your Home? Yes [email or web address] Information not available 04/20/2024 Do You Use Any Illicit Or Recreational Drugs? No [email or web address] Information not available 04/20/2024 Do You Use Sunscreen Routinely? Yes Information not available 04/20/2024 Has Tobacco Cessation Counseling Been Provided? No Information not available 04/20/2024 Do You Or Have You Ever Used Any Other Forms Of Tobacco Or Nicotine? No [email or web address] Information not available 04/20/2024 Sex: Unknown Functional [...] 02/27/2024 What is your exercise level? Occasional [email or web address] Information not available 04/20/2024 Mental Status None recorded. Family History Relationship Description Onset Age of this Age Resolved Age Notes LastModified by Organization Details LastModified Time Paternal Grandmother Malignant tumor of breast Not available 2023 14:34:11 Paternal Grandmother Mental disorder Not available 2023 14:35:05 Maternal Grandmother Malignant tumor of cervix Not available 2023 14:34:17 Maternal Grandmother Malignant tumor of ovary [email or web address] Not available 04/20 17:22:27 Paternal Grandfather Malignant [...] 14:35:05 Unspecified Relation Seizure disorder FOB MOTHER [email or web address] Not available 04/20/2024 15:26:35 Notes:Maternal grandmother: Ovarian [...] Recorded Time Tdap 08/13/2024 completed Phoebe mendez [facility] 08/20/2024 14:17:19 Influenza, MDCK, trivalent, PF 08/13/2024 amanda mendez [facility] 08/20/2024 14:17:19 Past Encounters Encounter ID Performer Location Encounter Start Date Encounter Closed Date Diagnosis/Indication Diagnosis SNOMED-CT Code Diagnosis ICD10 Code Diagnosis Note [id number] KESHA FIORE MD [place] [address],[place] [address] 07/16/2024 09:24:25 07/16/2024 11:05:08 Gestational diabetes mellitus 42354625 O24.419 Gestation period, 31 weeks 90237842 Z3A.31 - continue pNV [id number] Graciela Owen [place] [address],[place] [address] 08/02/2024 09:14:02 08/02/2024 10:35:44 Gestational diabetes mellitus 84717482 O24.410 Z3A.34 [id number] KESHA FIORE MD [place] [address],[place] [address] 08/04/2024 13:56:29 08/04/2024 15:06:05 Active or passive immunization 435778174 Z23 - Rx sent for RSV vaccine Gestationa l diabetes mellitus class A2 73802871 O24.414 - will start lantus at nighttime- weekly testing Gestation period, 34 weeks 70665461 Z3A.34 - continue PNV [id number] Phoebe Johnson [place] [address],[place] [address] 08/13/2024 10:58:31 08/13/2024 13:02:17 Gestational diabetes mellitus 91922786 O24.419 [id number] KESHA FIORE MD [place] [address],[place] [address] 08/13/2024 10:58:55 08/13/2024 17:08:31 Gestational diabetes mellitus class A2 74480260 O24.414 - controlled on lantus 5u qHS- continue weekly testing- plan for delivery by 39w6d Gestation period, 35 weeks 44552663 Z3A.35 [id number] Edith Shabazz [place] [address],[place] [address] 08/13/2024 10:59:07 08/13/2024 16:49:41 Gestational diabetes mellitus 99132926 O24.414 Z3A.35 Health Concerns Section Related Observation LastModified by Organization Detai ls LastModified Time None Recorded Concern Status LastModified by Organization Details LastModified Time None Recorded Payers Encounter Date Sequence Insurance Name Policy Number Policy Mehta Covered Member ID Mehta Member ID Guarantor Name 08/13/[address] [facility] (MEDICAID HMO) [id number] Diana Chiu [id number] Diana Chiu OBGyn Episode Ob Episode Information Episode Created Date Number of Fetuses Patient Bloodtype Patient rh Status Prepregnancy Weight lbs Domestic Partner Domestic Partner Phone Father Name Rn Neurology Status 02/27/20 24 1 AB Negative 194 OPEN Fetus Data First Name Last Name Admitted to NICU Weight (g) Sex Living Outcome Pediatric Complications Fetus ID Race Codes Race Delivery Type [id number] Problems Problem Notes Problem Name Start Date End Date Resolution Snomed Code Not e Marijuana user 659341719 +UDS Gestational diabetes mellitus 26210893 BS QID, serial zmatth68/4 - Lantus 5 units @HS Tomas Calculation [...] Weight in lbs Pre/Post Dialysis Refused Weight 194.882369627356 BP Diastolic BP Location Tested BP Systolic [...] Type Weight in lbs Pre/Post Dialysis Refused 192.360660073448 BP Diastolic BP Location Tested BP Systolic [...] Type Weight in lbs Pre/Post Dialysis Refused 196.552931887438 BP Diastolic BP Location Tested BP Systolic [...] Type Weight in lbs Pre/Post Dialysis Refused 203.18787556210 BP Diastolic BP Location Tested BP Systolic BP Type 69 L arm 100 sitting Fetus Heart Rate Present A 140 Fetus Movement A Yes Comments Good movement. No cram ping or bleeding. Discussed labs and GCT for next visit, will go to [place] for labs and Rhogam. Carpal tunnel improving. 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 RTC 4 weeks. Flowsheet Date 06/18/2024 Newton Score Blood Edema Fundus Height Fundus Units Glucose Ketones Leukocytes Nitrite Labor Signs Protein Cervic Dilation Cervic Effacement Cervic Station neg none none trace Type Weight in lbs Pre/Post Dialysis Refused 213.658466788956 BP Diastolic BP Location Tested BP Systolic [...] Weight in lbs Pre/Post Dialysis Refused Weight 214.152954470812 BP Diastolic BP Location Tested BP Systolic [...] Weight in lbs Pre/Post Dialysis Refused Weight 215.131155050534 BP Diastolic BP Location Tested BP Systolic [...] Weight in lbs Pre/Post Dialysis Refused Weight 224.323236838492 BP Diastolic BP Location Tested BP Systolic [...] Weight in lbs Pre/Post Dialysis Refused Weight 223.715630005122 BP Diastolic BP Location Tested BP Systolic [...] Weight in lbs Pre/Post Dialysis Refused Weight 227.7165361917 BP Diastolic BP Location Tested BP Systolic BP Type 76 L arm 114 sitting Fetus Heart Rate Present A Present Fetus Movement A Yes Comments Good movement. No ctx, LOF, VB. NST/BPP at [place], 06/10. [place] for GDMA2 on 09/06 in PM. GBS collected today. RTC 1 week. Flowsheet Date 08/26/2024 Newton Score Blood Edema Fundus Height Fundus Units Glucose Ketones Leukocytes Nitrite Labor Signs Protein Cervic Dilation Cervic Effacement Cervic Station Type Weight in lbs Pre/Post Dialysis Refused 229.996924077277 BP Diastolic BP Location Tested BP Systolic [...] Estim ated Date of Delivery false Thalassemia (Swedish, Cambodian, Mediterranean, Or Background): MCV < 80 false Neural Tube Defect (Meningomyelocele, Spina Bifi da, Or Anencephaly) false Congenital Heart Defect false Down Syndrome false Fernando-Sachs (eg, Confucianist, Cajun, Khmer-Estill) f alse Genna Disease false Sickle Cell Disease Or Trait () false Hemophilia Or Other Blood Disorders false Muscular Dystrophy false Cystic Fibrosis false Floriss[place]'s Chorea false Intellectual Disability/Autism false If Yes, [...]
--- OUTSIDE RECORDS SUMMARY | 2024-09-13 03:18 | XMS_ITS | Continuity of Care Document ---
Author Organization [facility] Address [address] [place] [address] Care Team Providers Care Masonry Inspector Name Role Phone SABRINA MOTT Primary [...] ation record ed. [place]TON[address]BY [address], [facility], [place], [address], 03/04/2024 23:04:35 03/08/2003/08/2024 US, obste tric, nucha l trans lucen cy No observ ation record ed. [email or web address] [place] [address], [place], [address], 03/08/2024 18:13:20 03/08/20 24 03/08/2024 US, obstkeenan tric, 1st trime ster No observ ation record ed. [email or web address] [place] [address], [place], [address], 03/08/2024 18:13:12 03/08/20 24 03/08/2024 US, obste tric, nucha l trans lucen cy No observ ation record ed. [email or web address] [address], [place], [address], 03/08/2024 20:58:25 04/20/20 24 04/20/2024 US, obste tric, follo w-up No observ ation record ed. [email or web address] [address], [place], [address], 04/21/2024 17:06:55 08/02/20 24 08/02/2024 US, obste tric, follo w-up No observ ation record ed. [email or web address] [place] [address], [place], [address], 08/02/2024 10:13:50 08/02/20 24 08/02/2024 US, obste tric, follo w-up No observ ation record ed. [email or web address] [address], [place], [address], 08/05/2024 20:29:18 08/13/20 24 08/13/2024 non-s tress test No observ ation record ed. [email or web address] [place] [address], [place], [address], 08/13/2024 12:48:12 08/13/20 24 08/13/2024 US, obste tric, bioph ysica l profi le No observ ation record ed. [email or web address] [address], [place], [address], 08/14/2024 23:23:31 08/13/20 24 08/13/2024 US, obste tric, bioph ysica l profi le + non-s tress test No observ ation record ed. [email or web address] [place] [address], [place], [address], 08/13/2024 17:26:10 08/17/20 24 08/17/2024 non-s tress test No observ ation record ed. [place] [address] [address], [place], [address], 08/19/2024 11:56:26 08/21/20 24 08/21/2024 non-s tress test No observ ation record ed. [address] [address], [place], [address], 08/31/2024 11:25:22 08/26/20 24 08/26/2024 non-s tress test No observ ation record ed. [email or web address] Not Available 2023 11:08:41 09/03/19 25 09/03/2024 non-s tress test No observ ation record ed. [address] [address], [place], [address], 09/06/2024 13:42:56 Result Notes None recorded. Problems Name Problem SNOMED Code Status Onset Date Resolution Date Notes Provider Name and Address Organization Details Recorded Time 00046575 Active 2023 Ashley Epstein [facility], [facility] 4 14:41:40 Marijuana user 538794231 Active +UDS Osiris Lopez [facility], [facility] 4 14:12:40 Gestational diabetes mellitus 78444853 Active BS QID, serial growth 12/4 - Lantus 5 units @HS Larissa valdes null, [facility] 4 15:11:40 Gestational diabetes mellitus 70166293 Active BS QID, serial growth 12/4 - Lantus 5 units @HS Larissa Rausch eier null, [facility] 4 15:11:40 Problem Notes None recorded. Procedures Surgical History Date Name Laterality Status Provider Name and Address Organization Details Recorded Time 09/01/19 19 Date of Last Pap Smear completed [facility] 02/27/2024 14:32:44 09/01/19 04 procedure on knee completed [facility] 02/27/2024 14:36:05 09/01/19 00 Tonsillectomy completed [facility] 02/27/2024 14:36:17 Imaging Results None recorded. [...] No Locat ion: [facility] odify By: steve ghosh DateTime : 07/17/20 16 02:00:00 PM Not Available Not Available Not Available OneTouch Ultra Test strips USE TO TEST 4 TIMES A DAY active Not Available Not Available No t Available June FE 09/20 (28) 1 mg-20 mcg (21)/75 mg (7) tablet TAKE 1 TABLET BY ORAL ROUTE EVERY DAY 10/16 completed [facility] ed Elsewher e: No [facility]at [facility]ify By: lawanda cortes DateTime : [...] Prescrib ed Elsewher e: Yes [facility] By: deandre cortes DateTime : 08/09/20 [...] and Address Organization Details Last Updated DateTime 06/18/2024 165.1 cm 35.4 kg/m2 34026.17 481 g 113 mm[Hg] 80 mm[Hg] Phoebe Johnson [facility] 12:38:48 Social History Question Answer Notes LastModified by Organizat ion Details LastModified Time Tobacco Smoking Status Never Smoker Ashley Acostase mendez, [facility] 02/27/2024 14:35:43 What Is Your Level Of Alcohol Consumption? Occasional Information not available 02/27/2024 Are You Blind Or Do You Have Difficulty Seeing? No Information n ot available 02/27/2024 What Is Your Level Of Caffeine Consumption? Occasional Information not available 04/20/2024 In The 14 [...] Type Of Diet Are You Following? REGULAR [email or web address] Information n ot available 04/20/2024 Have You Ever Been Counseled For Unhealthy Alcohol Use? No [email or web address] Information not available 04/20/2024 Do You Have Smoke And Carbon Monoxide Detectors In Your Home? Yes [email or web address] Information not available 04/20/2024 Do You Use Any Illicit Or Recreational Drugs? No [email or web address] Information not available 04/20/2024 Do You Use Sunscreen Routinely? Yes [email or web address] Information not available 04/20/2024 Has Tobacco Cessation Counseling Been Provided? No [email or web address] Information not available 04/20/2024 Do You Or Have You Ever Used Any Other Forms Of Tobacco Or Nicotine? No [email or web address] Information not available 04/20/2024 Sex: Unknown Functional [...] 02/27/2024 What is your exercise level? Occasional [email or web address] Information not available 04/20/2024 Mental Status None recorded. Family History Relationship Description Onset Age of this Age Resolved Age Notes LastModified by Organization Details LastModified Time Paternal Grandmother Malignant tumor of breast Not available 2023 14:34:11 Paternal Grandmother Mental disorder Not available 2023 14:35:05 Maternal Grandmother Malignant tumor of cervix Not available 2023 14:34:17 Maternal Grandmother Malignant tumor of ovary [email or web address] Not available 04/20 17:22:27 Paternal Grandfather Malignant tumor of colon Not available 2023 14:34:24 Paternal Grandfather Hypertensive disorder Not available 2023 14:34:37 Paternal Grandfather Mental disorder Not available 2023 14:35:05 Paternal Grandfather Chronic hepatitis [email or web address] Not available 04/20 17:22:55 Mother Hypertensive disorder Not available 2023 14:34:37 Mother Mental disorder Not available 2023 14:35:05 Father Mental disorder Not available 2023 14:35:05 Unspecified Relation Seizure disorder FOB MOTHER [email or web address] Not available 04/20/2024 15:26:35 Notes:Maternal grandmother: Ovarian [...] Recorded Time Tdap 08/13/2024 completed Phoebe mendez [facility] 08/20/2024 14:17:19 Influenza, MDCK, trivalent, PF 08/13/2024 completed Phoebe mendez [facility] 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) [id number] KESHA FIORE MD [place] [address] [address] 06/18/2024 12:11:01 06/28/2024 04:03:48 Routine care 934858197 Z34.02 - continue PNV Health Concerns Section Related Observation LastModified by Organization Detai ls LastModified Time None Recorded Concern Status LastModified by Organization Details LastModified Time None Recorded Payers Encounter Date Sequence Insurance Name Policy Number Policy Mehta Covered Member ID Mehta Member ID Guarantor Name 06/18/2024 1 [place] [facility] Diana Chiu [id number] Diana Chiu OBGyn Episode Ob Episode Information Episode Created Date Number of Fetuses Patient Bloodtype Patient rh Status Prepregnancy Weight lbs Domestic Partner Domestic Partner Phone Father Name Clinical Informatics Spec Status 02/27/20 24 1 AB Negative 194 OPEN Fetus Data First Name Last Name Admitted to NICU Weight (g) Sex Living Outcome Pediatric Complications Fetus ID Race Codes Race Delivery Type [id number] Problems Problem Notes Problem Name Start Date End Date Resolution Snomed Code Not e Marijuana user 538472459 +UDS Gestational diabetes mellitus 49117443 BS QID, serial elsyfc47/4 - Lantus 5 units @[facility] Tomas Calculation [...] Weight in lbs Pre/Post Dialysis Refused Weight 194.666482978155 BP Diastolic BP Location Tested BP Systolic [...] Type Weight in lbs Pre/Post Dialysis Refused 192.284925846096 BP Diastolic BP Location Tested BP Systolic [...] Type Weight in lbs Pre/Post Dialysis Refused 196.556886148322 BP Diastolic BP Location Tested BP Systolic [...] Type Weight in lbs Pre/Post Dialysis Refused 203.55082325040 BP Diastolic BP Location Tested BP Systolic BP Type 69 L arm 100 sitting Fetus Heart Rate Present A 140 Fetus Movement A Yes Comments Good movement. No cram ping or bleeding. Discussed labs and GCT for next visit, will go to [place] for labs and Rhogam. Carpal tunnel improving. 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 RTC 4 weeks. Flowsheet Date 06/18/2024 Newton Score Blood Edema Fundus Height Fundus Units Glucose Ketones Leukocytes Nitrite Labor Signs Protein Cervic Dilation Cervic Effacement Cervic Station neg none none trace Type Weight in lbs Pre/Post Dialysis Refused 213.831638940641 BP Diastolic BP Location Tested BP Systolic [...] Weight in lbs Pre/Post Dialysis Refused Weight 214.445803590302 BP Diastolic BP Location Tested BP Systolic [...] Weight in lbs Pre/Post Dialysis Refused Weight 215.462046229386 BP Diastolic BP Location Tested BP Systolic [...] Weight in lbs Pre/Post Dialysis Refused Weight 224.191050467287 BP Diastolic BP Location Tested BP Systolic [...] Weight in lbs Pre/Post Dialysis Refused Weight 223.997046240032 BP Diastolic BP Location Tested BP Systolic [...] Weight in lbs Pre/Post Dialysis Refused Weight 227.2005545845 BP Diastolic BP Location Tested BP Systolic BP Type 76 L arm 114 sitting Fetus Heart Rate Present A Present Fetus Movement A Yes Comments Good movement. No ctx, LOF, VB. NST/BPP at [place], 06/10. [place] for GDMA2 on 09/06 in PM. GBS collected today. RTC 1 week. Flowsheet Date 08/26/2024 Newton Score Blood Edema Fundus Height Fundus Units Glucose Ketones Leukocytes Nitrite Labor Signs Protein Cervic Dilation Cervic Effacement Cervic Station Type Weight in lbs Pre/Post Dialysis Refused 229.528257741171 BP Diastolic BP Location Tested BP Systolic [...] false Thalassemia (Citizen Of [place], Sudanese, Mediterranean, Or Background): MCV < 80 false Neural Tube Defect (Meningomyelocele, Spina Bifi da, Or Anencephaly) false Congenital Heart Defect false Down Syndrome false Fernando-Sachs (eg, Gnosticist, Cajun, Welsh-Mauritian) f alse Genna Disease false Sickle Cell [...]
== END 2024-09-09 13:06 | disposition home or self-care (01) | DRG 560 ==
LOC: ANHLDR 16:50 → ANHOB2 09-09 08:31 → ANHLDR 09-10 10:16 → ANHOB2 09-10 10:16
PROVIDERS: Admitting Provider Obstetrics & Gynecology; PCP Internal Medicine; Visit Provider Obstetrics & Gynecology
DX: O24.424 Gestational diabetes mellitus in childbirth, insulin controlled (principal); O69.81X0 Labor and delivery complicated by cord around neck, without compression, not applicable or unspecified; O70.1 Second degree perineal laceration during delivery; O71.82 Other specified trauma to perineum and vulva; O66.0 Obstructed labor due to shoulder dystocia; Z3A.39 39 weeks gestation of pregnancy; Z37.0 Single live birth
CPT/HCPCS: 36415; 82948; 85014; 85018; 85025; 85461; 86592; 86703; 86850; 86900; 86901; 90384; A9270; G0432; J2405; J2590; J2790; J2795; J3010; J7120

== ENCOUNTER 2024-12-06 10:37 | Emergency (ER) | payer OTHER, SELFPAY ==
--- NOTE | ~2024-12-06 | CT_ITS ---
EXAMINATION: CT abdomen pelvis w con DATE: 12/06/2024 12:43 INDICATION: Left lower quadrant abdominal pain TECHNIQUE: Computed tomography (CT) of the abdomen and pelvis was performed with 100 mL Omnipaque-350 intravenous contrast. Automated exposure control and iterative reconstruction technique were employe d. The dose-length product was 975.24 mGy-cm. COMPARISON: None FINDINGS: Mild discoid atelectasis in the left lower lobe. Heart size is normal. No pericardial or pleural effu tamica. Very small sliding-type hiatal hernia. Focal hepatic steatosis ligamentum teres. 6 mm nodular d ensity in the fundus of the largely decompressed gallbladder which could represent a gallstone or sma ll polyp. Spleen, pancreas, bilateral adrenal glands and kidneys are normal. There is inflammatory st randing surrounding a an ovoid macroscopic fat density lesion along the anterior margin of the juncti on of the descending and sigmoid colon consistent with epiploic appendagitis. Remainder the bowels in cluding the appendix are normal. Bladder, anteverted uterus and bilateral adnexa are unremarkable. Tr carolyn amount of likely physiologic free fluid along side the right ovary. No abscess or free intraperit zavala gas. No pathologically enlarged abdominal or pelvic lymphadenopathy. Mild thoracic spondylosis. IMPRESSION: 1. Left lower quadrant epiploic appendagitis. 2. 6 mm gallstone versus polyp at the fundus of the gallbladder. Reviewed, dictated and finalized at location A.
[2024-12-06 10:52] VITALS: BP 120/73; PULSE 98; RESP 16; TEMP 36.3; O2SAT 100
[2024-12-06 11:27] LABS: Basophils Percent Auto 0.4 % (0.2-1.2); Eosinophils Absolute Auto 0.2 K/mm3 (0-0.3); Eosinophils Percent Auto 2.4 % (0-4.4); Hematocrit 38.5 % (37.0-47.0); Hemoglobin 12.2 g/dL (12.0-15.0); Immature Granulocyte Absolute 0.02 K/mm3 (0.00-0.031); Immature Granulocyte Percent A 0.3 % (0-0.5); Lymphocytes Absolute Auto 1.83 K/mm3 (0.9-3.2); Lymphocytes Percent Auto 26.2 % (18.3-44.2); Mean Corpuscular HGB Conc 31.7 g/dl (32-36); Mean Corpuscular Volume 91.7 fl (80-100); Mean Platelet Volume 11.6 fl (7.4-10.4); Monocytes Absolute Auto 0.4 K/mm3 (0.1-0.6); Neutrophils Absolute Auto 4.5 K/mm3 (1.3-6.7); Neutrophils Percent Auto 64.7 % (45.5-73.1); Platelet Count Result 263 k/mm3 (150-375); Red Cell Distribution Width 13.2 % (11.5-14.5)
[2024-12-06 11:42] LABS: Alanine Aminotransferase 28 U/L (6-35); Albumin Level 4.6 g/dL (3.5-5.1); Alkaline Phosphatase 60 U/L (38-126); Anion Gap 8 mmol/L (4-12); Aspartate Amino Transferase 32 U/L (14-36); Bilirubin,Total 0.7 mg/dL (0.2-1.3); Blood Urea Nitrogen 14 mg/dL (7-17); Calcium 9.1 mg/dL (8.4-10.2); Carbon Dioxide 26 mmol/L (22-30); Chloride 103 mmol/L (98-107); Estimated CRCL calculation 98 ml/min; Estimated Glomerular Filt Rate > 60; Glucose 90 mg/dL (65-110); Lipase 95 U/L (23-300); Potassium 4.3 mmol/L (3.4-5.0); Sodium 137 mmol/L (137-145)
[2024-12-06 11:47] LABS: BEDSIDEPREGUCG Negative (Negative)
--- NOTE | 2024-12-06 11:51 | ED.GENADULT ---
HPI - General Adult General Chief complaint: Unspecified Stated complaint: left side pain x1 month Time Seen by Provider: 12/06/24 11:10 Source: patient Mode of arrival: ambulatory Limitations: no limitations History of Present Illness HPI narrative: This is a 29-year-old female that presents to the emergency department for left lower quadrant abdominal pain. Ongoing over the last 3 days. Reports the pain is been constant in nature. Denies fevers, vomiting, dysuria, diarrhea. Related Data Home Medications ?Medication ?Instructions ?Recorded ?Confirmed ?Last Taken ?Type ferrous sulfate 325 mg (65 mg 325 mg PO DAILY 08/13/24 08/13/24 08/13/24 History iron) tablet (Feosol) insulin glargine 100 unit/mL 5 unit subcut QPM gdm 08/13/24 08/13/24 08/12/24 History subcutaneous solution (Lantus U-100 Insulin) vit no.95-ferrous 1 tablet PO DAILY 08/13/24 08/13/24 08/13/24 History fumarate 28 mg-folic acid 800 mcg tablet () Allergies Allergy/AdvReac Type Severity Reaction Status Date / Time No Known Allergies Allergy Verified 12/06/24 10:38 Review of Systems Review of Systems: CONSTITUTIONAL: Denies fever GASTROINTESTINAL: Reports abdominal pain. Denies nausea, vomiting, or diarrhea. GENITOURINARY: Denies dysuria or hematuria. All systems reviewed & are unremarkable except as noted in HPI and below PMFSH Past Medical History Medical History Anemia as child Surgical History Surgical History History of orthopedic surgery Tumor removed from right knee History of tonsillectomy Family History Family History Grandparent Breast cancer Maternal grandmother Cervical cancer paternal grandmother Social History Social History Smoking status: Never smoker Second hand tobacco smoke exposure: No Substance use: current Do You Feel Safe in your Home?: Yes Lack of Transportation: No Lack of Food: Never True Current Housing: I Have Housing Concerned About Future Housing: No Difficulty Paying Gas/Electric Bills: No Difficulty Paying for Meds: No Currently Unemployed: No Education: Trade/Vocational Certificate Difficulty w/ Childcare or Family Care: No Spiritual care concerns: No Exam Narrative: GENERAL: Well-appearing, well-nourished, and in no acute distress. HEAD: Normocephalic, atraumatic. EYES: EOMI. CHEST: Clear to auscultation. No respiratory distress. No wheezes rales or rhonchi HEART: Regular rate and rhythm. No murmur heard. Normal peripheral pulses. ABDOMEN: Soft, nontender, nondistended, normal active bowel sounds. EXTREMITIES: Normal range of motion. No edema. SKIN: Warm, dry, no rash. NEURO: No focal deficits. Alert and oriented x3. PSYCH: Normal mood and affect Course Course Emergency Course: Patient updated on her workup and agrees with plan of care Vital Signs Vital signs: Vital Signs Temperature 97.4 F L 12/06/24 10:52 Pulse Rate 98 12/06/24 10:52 Respiratory Rate 16 12/06/24 10:52 Blood Pressure 120/73 12/06/24 10:52 Pulse Oximetry 100 12/06/24 10:52 Oxygen Delivery Room Air 12/06/24 10:52 Temperature 97.4 F L 12/06/24 10:52 Pulse Rate 98 12/06/24 10:52 Respiratory Rate 16 12/06/24 10:52 Blood Pressure 120/73 12/06/24 10:52 Pulse Oximetry 100 12/06/24 10:52 Oxygen Delivery Room Air 12/06/24 10:52 Medical Decision Making MDM Narrative Medical decision making narrative: Patient presents to the emergency department for left lower quadrant abdominal pain. She is afebrile and nontoxic appearing. Cbc without leukocytosis. Metabolic panel without concerning findings. Urine with greater than 100 white blood cells, 4+ bacteria. Also many squamous epithelial cells. This will be sent for culture. Patient will be started on antibiotics pending culture results, likely will be a contaminated catch. CT abdomen and pelvis shows left lower quadrant epiploic appendagitis. Patient updated on her workup and agrees with plan of care. She is to follow up with primary provider. She was given warnings to return to the ER Vital Signs Vital Signs: Vital Signs Temperature 97.4 F L 12/06/24 10:52 Pulse Rate 98 12/06/24 10:52 Respiratory Rate 16 12/06/24 10:52 Blood Pressure 120/73 04/07/25 10:52 Pulse Oximetry 100 12/06/24 10:52 Oxygen Delivery Room Air 12/06/24 10:52 Temperature 97.4 F L 12/06/24 10:52 Pulse Rate 98 12/06/24 10:52 Respiratory Rate 16 12/06/24 10:52 Blood Pressure 120/73 12/06/24 10:52 Pulse Oximetry 100 12/06/24 10:52 Oxygen Delivery Room Air 12/06/24 10:52 Lab Data Lab results reviewed: Yes I reviewed the patient's lab results. 12/06/24 11:22 12/06/24 11:21 Labs: Lab Results 12/06/24 12/06/24 12/06/24 Range/Units 11:21 11:22 11:33 WBC 7.0 (4.5-10.0) K/mm3 RBC 4.20 (4.2-5.4) M/mm3 Hgb 12.2 (12.0-15.0) g/dL Hct 38.5 (37.0-47.0) % MCV 91.7 (80-100) fl MCH 29.0 (26-34) pg MCHC 31.7 L (32-36) g/dl RDW 13.2 (11.5-14.5) % Plt Count 263 (150-375) k/mm3 MPV 11.6 H (7.4-10.4) fl Immature Gran % (Auto) 0.3 (0-0.5) % Neut % (Auto) 64.7 (45.5-73.1) % Lymph % (Auto) 26.2 (18.3-44.2) % [place] % (Auto) 6.0 (2.6-8.5) % Eos % (Auto) 2.4 (0-4.4) % Baso % (Auto) 0.4 (0.2-1.2) % Lymph # (Auto) 1.83 (0.9-3.2) K/mm3 [place] # (Auto) 0.4 (0.1-0.6) K/mm3 Eos # (Auto) 0.2 (0-0.3) K/mm3 Baso # (Auto) 0.0 (0.0-0.1) K/mm3 Abs Immat Gran (auto) 0.02 (0.00-0.031) K/mm3 Absolute Neuts (auto) 4.5 (1.3-6.7) K/mm3 Absolute Nucleated RBC 0.000 (0.0-0.012) K/mm3 Nucleated RBC % 0.0 (0.0-0.2) % Sodium 137 (137-145) mmol/L Potassium 4.3 (3.4-5.0) mmol/L Chloride 103 (98-107) mmol/L Carbon Dioxide 26 (22-30) mmol/L Anion Gap 8 (4-12) mmol/L BUN 14 (7-17) mg/dL Creatinine 0.85 (0.7-1.0) mg/dL Estim Creat Clear Calc 98 ml/min Estimated GFR > 60 (59 - ) Glucose 90 (65-110) mg/dL Calcium 9.1 (8.4-10.2) mg/dL Total Bilirubin 0.7 (0.2-1.3) mg/dL AST 32 (14-36) U/L ALT 28 (6-35) U/L Alkaline Phosphatase 60 (38-126) U/L Total Protein 8.0 (6.3-8.2) g/dL Albumin 4.6 (3.5-5.1) g/dL Lipase 95 (23-300) U/L Urine Color Yellow (Yellow) Urine Appearance Turbid H (Clear) Urine pH 5.5 (5.0-9.0) Ur Specific [place] 1.023 (1.001-1.035) Urine Protein Trace (Negative) mg/dL Urine Glucose (UA) Negative (Negative) mg/dL Urine Ketones Trace H (Negative) mg/dL Ur Blood (Man) Negative (Negative) Urine Nitrate Negative (Negative) Urine Bilirubin Negative (Negative) Urine Urobilinogen 0.2 (<2.0) mg/dL Add Ur Microanalysis Reviewed Leukocyte Esterase Rfl 2+ H (Negative) RON/UL Urine RBC 3-5 H (0-2) /hpf Urine WBC >100 H (0-3) /hpf Ur Squamous Epith Cells Many H (Few) /hpf Urine Bacteria 4+ H /hpf Urine Casts 0-2 Urine Mucus Present /lpf POC Urine HCG, Qual (Negative) 12/06/24 Range/Units 11:44 WBC (4.5-10.0) K/mm3 RBC (4.2-5.4) M/mm3 Hgb (12.0-15.0) g/dL Hct (37.0-47.0) % MCV (80-100) fl MCH (26-34) pg MCHC (32-36) g/dl RDW (11.5-14.5) % Plt Count (150-375) k/mm3 MPV (7.4-10.4) fl Immature Gran % (Auto) (0-0.5) % Neut % (Auto) (45.5-73.1) % Lymph % (Auto) (18.3-44.2) % [place] % (Auto) (2.6-8.5) % Eos % (Auto) (0-4.4) % Baso % (Auto) (0.2-1.2) % Lymph # (Auto) (0.9-3.2) K/mm3 [place] # (Auto) (0.1-0.6) K/mm3 Eos # (Auto) (0-0.3) K/mm3 Baso # (Auto) (0.0-0.1) K/mm3 Abs Immat Gran (auto) (0.00-0.031) K/mm3 Absolute Neuts (auto) (1.3-6.7) K/mm3 Absolute Nucleated RBC (0.0-0.012) K/mm3 Nucleated RBC % (0.0-0.2) % Sodium (137-145) mmol/L Potassium (3.4-5.0) mmol/L Chloride (98-107) mmol/L Carbon Dioxide (22-30) mmol/L Anion Gap (4-12) mmol/L BUN (7-17) mg/dL Creatinine (0.7-1.0) mg/dL Estim Creat Clear Calc ml/min Estimated GFR (59 - ) Glucose (65-110) mg/dL Calcium (8.4-10.2) mg/dL Total Bilirubin (0.2-1.3) mg/dL AST (14-36) U/L ALT (6-35) U/L Alkaline Phosphatase (38-126) U/L Total Protein (6.3-8.2) g/dL Albumin (3.5-5.1) g/dL Lipase (23-300) U/L Urine Color (Yellow) Urine Appearance (Clear) Urine pH (5.0-9.0) Ur Specific [place] (1.001-1.035) Urine Protein (Negative) mg/dL Urine Glucose (UA) (Negative) mg/dL Urine Ketones (Negative) mg/dL Ur Blood (Man) (Negative) Urine Nitrate (Negative) Urine Bilirubin (Negative) Urine Urobilinogen (<2.0) mg/dL Add Ur Microanalysis Leukocyte Esterase Rfl (Negative) RON/UL Urine RBC (0-2) /hpf Urine WBC (0-3) /hpf Ur Squamous Epith Cells (Few) /hpf Urine Bacteria /hpf Urine Casts Urine Mucus /lpf POC Urine HCG, Qual Negative (Negative) Imaging Data Radiologist's impression: ITS Impressions Abdomen/Pelvis CT 12/06/24 12:47 IMPRESSION: 1. Left lower quadrant epiploic appendagitis. 2. 6 mm gallstone versus polyp at the fundus of the gallbladder. Critical Care Time Critical Care Time Critical Care Time: No Discharge Plan Discharge Clinical Impression: Epiploic appendagitis, Bacteriuria Patient Disposition: Home Condition: Stable Instructions: Antibiotic Form, Epiploic Appendagitis (ED) Additional Instructions: Return to the emergency department if you experience fever, chest pain, shortness of breath, abdominal pain with nausea and vomiting, or any other symptoms that are concerning to you. Over the counter pain medication as needed. Take oral antibiotics as prescribed Follow up with primary care doctor Patient Language: Chinese Prescriptions: New nitrofurantoin monohyd/m-cryst [Macrobid] 100 mg capsule 100 mg PO Q12H 5 Days Qty: 10 0RF Rx Instructions: must administer with a meal/food No Action PNV cmb#95-ferrous fumarate-FA [] 28 mg iron- 800 mcg tablet 1 tablet PO DAILY insulin glargine [Lantus U-100 Insulin] 100 unit/mL solution 5 unit subcut QPM ferrous sulfate [Feosol] 325 mg (65 mg iron) tablet 325 mg PO DAILY Follow-up/Referrals: Consuelo,Judah Shukla MD [Primary Care Provider] -
[2024-12-06 12:00] VITALS: RESP 16
[2024-12-06 12:06] LABS: Add Urine Microscopic? YES; Appearance Urine Turbid (Clear); Bacteria Urine 4+ /hpf; Bilirubin Urine Negative (Negative); Blood Urine Negative (Negative); Color Urine Yellow (Yellow); Glucose Urine UA Negative (Negative); Ketones Urine Trace mg/dL (Negative); Leukocyte Esterase Ur 2+ LEU/UL (Negative); Mucus Urine Present /lpf; Need Manual Microscopic Reviewed; Nitrate Urine Negative (Negative); Non Pathogenic Casts 0-2; Protein Urine Trace mg/dL (Negative); Specific Grav Ur 1.023 (1.001-1.035); Squamous Epithelial Cell Urine Many /hpf (Few); Urobilinogen Urine 0.2 mg/dL (<2.0); WBC Urine >100 /hpf (0-3); pH Urine 5.5 (5.0-9.0)
--- OUTSIDE RECORDS SUMMARY | 2024-12-06 12:17 | XMS_ITS | Data Portability ---
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 Discussed plan. [email or web address] Not available 08/26/2024 15:57:28 09/03/2024 09/03/2024 Not seen due to urgent patient care [email or web address] Not available 09/03/2024 18:32:15 Plan of Treatment Reminders Order Date Submit Date Provider Last Modified By Organization Details Last Modified Time Details Appointments WELL WOMAN- EST 025 08:30AM THA Pena Not available Not available Not available Lab None record ed. Referral None record ed. Procedures None record ed. Surgeries None record ed. Imaging non-st ress test 024 08/13/20 24 [email or web address] [place], [address], [address], [place], [address], 08/16/2024 05:56:58 Medication Orders None record ed. Patient [...] t Abnor mal: No Resul ting Lab: [facility] [address] [facility] [address] Tel: CULTU RE ----- ----- ----- --- No Group B strep isola carmina at 2 days (sarah ctive broth enhan cemen t) Not Available [facility] (Lab) [address], [place], [address], 08/23/2024 15:08:12 08/02/20 24 08/02/2024 US, jt rosales follo w-up No observ ation record ed. [email or web address] [place] [address], [place], [address], 08/02/2024 10:13:50 08/02/20 24 08/02/2024 US, tj rosales follo w-up No observ ation record ed. [email or web address] [address], [place], [address], 08/05/2024 20:29:18 08/13/20 24 08/13/2024 non-s tress test No observ ation record ed. [email or web address] [place] [address], [place], [address], 08/13/2024 12:48:12 08/13/20 24 08/13/2024 US, tj rosales, bioph ysica l profi le No observ ation record ed. [email or web address] [address], [place], [address], 08/14/2024 23:23:31 08/13/20 24 08/13/2024 US, obste tric, bioph ysica l profi le + non-s tress test No observ ation record ed. [facility] [address], [place], [address], 08/13/2024 17:26:10 08/17/20 24 08/17/2024 non-s tress test No observ ation record ed. [address] [facility], [place], [address], 08/19/2024 11:56:26 08/21/20 24 08/21/2024 non-s tress test No observ ation record ed. [address] [address], [place], [address], 08/31/2024 11:25:22 08/26/20 24 08/26/2024 non-s tress test No observ ation record ed. [email or web address] Not Available 2023 11:08:41 09/03/19 25 09/03/2024 non-s tress test No observ ation record ed. [address] [address], [place], [address], 09/06/2024 13:42:56 Result Notes None recorded. Problems Name Problem SNOMED Code Status Onset Date Resolution Date Notes Provider Name and Address Organization Details Recorded Time 25803147 Completed 202310/05/2024 TAMARA Pino null, [facility] 5 12:19:48 Marijuana user [id number] Completed +UDS Osiris Lopez [facility], [facility] 4 14:12:40 Gestationa l diabetes mellitus 20986513 Completed BS QID, serial growth 08/04 - Lantus 5 units @HS Larissa Miracle valdes null, [facility] 4 15:11:40 Gestationa l diabetes mellitus 53279103 Active BS QID, serial growth 08/04 - [facility]us 5 units [facility] 15:11:40 Problem Notes None recorded. Procedures Surgical History Date Name Laterality Status Provider Name and Address Organization Details Recorded Time 09/01/19 19 Date of Last Pap Smear completed [facility] 02/27/2024 14:32:44 09/01/19 04 procedure on knee completed [facility] 02/27/2024 14:36:05 09/01/19 00 Tonsillectomy completed [facility] 02/27/2024 14:36:17 Imaging Results Imaging Date Name Status LastModified by Organiz ation Details LastModified Time 08/02/2024 US, obstetric, follow-up completed [email or web address] [place] [address], [place], [address], 08/02/2024 10:13:50 08/02/2024 US, obstetric, follow-up completed [address], [place], [address], 08/05/2024 20:29:18 08/13/2024 non-stress test completed [place] [address], [place], [address], 08/13/2024 12:48:12 08/13/2024 US, obstetric, biophysical profile completed [email or web address] [address], [place], [address], 08/14/2024 23:23:31 08/13/2024 US, obstetric, biophysical profile + [facility]-stress test [email or web address] [address], [place], [address], 08/13/2024 17:26:10 08/17/2024 non-stress test completed [address], [place], [address], 08/19/2024 11:56:26 08/21/2024 non-stress test completed [address], [place], [address], 08/31/2024 11:25:22 08/26/2024 non-stress test completed [place] [id number] Informati on not available 08/31/2024 11:08:41 09/03/2024 non-stress test completed [address], [place], [address], 09/06/2024 13:42:56 Procedure Notes None recorded. Medical Equipment None Reported. Allergies No known drug allergies Medications Name Sig Start Date Stop Date Status Note LastModified by Organization Details LastModified Time cefadroxi l 500 mg capsule take 1 capsule by oral route every 12 hours for 10 days 07/26 completed Prescrib ed Elsewher e: No Locat ion: [facility] odify By: steve ghosh DateTime : 07/17/20 16 02:00:00 PM Not Available Not Available Not Available OneTouch Ultra Test strips USE TO TEST 4 TIMES A DAY active Not Available Not Available No t Available June FE 09/20 (28) 1 mg-20 mcg (21)/75 mg (7) tablet TAKE 1 TABLET BY ORAL ROUTE EVERY DAY 10/16 completed [facility] ed Elsewher e: No Locat ion: [facility] M odify By: [email or web address] Cassidy cortes DateTime : [...] oral route every day 03/20 completed Prescrib justin Holland e: Yes Loca tion: [facility] Haylie narayan By: deandre cortes DateTime : [...] (PF) 120 mcg/0.5 mL intramusc ular solution active Not Available Not Available Not Available Vitals Date Recorded Body height Body mass index (BMI) Body weight Systolic blood pressure Diastolic blood pressure Provider Name and Address Organization Details Last Updated DateTime 08/13/2024 165.1 cm 37.1 kg/m2 230061.1 g 109 mm[Hg] 75 mm[Hg] [facility] 4 12:40:27 Date Recorded Body height Body mass index (BMI) Body weight Systolic blood pressure Diastolic blood pressure Provider Name and Address Organization Details Last Updated DateTime 08/20/2024 165.1 cm 37.8 kg/m2 969833.4 7 g 114 mm[Hg] 76 mm[Hg] Phoebe [facility] 4 14:21:20 Date Recorded Body weight Systolic blood pressure Diastolic blood pressure Provider Name and Address Organization Details Last Updated DateTime 08/26/2024 459341.652 73 g 116 mm[Hg] 79 mm[Hg] Liz Ortega [facility] 08/26/2024 15:59:25 Date Recorded Body height Body mass index (BMI) Body weight Systolic blood pressure Diastolic blood pressure Provider Name and Address Organization Details Last Updated DateTime 10/08/2024 165.1 cm 35.4 kg/m2 23127.17 g 115 mm[Hg] 78 mm[Hg] [facility] 14:58:52 Social History Question Answer Notes LastModified by Organizat ion Details LastModified Time Tobacco Smoking Status Never Smoker Ashley Epstein [facility] 02/27/2024 14:35:43 What Is Your Level Of Alcohol Consumption? Occasional Information not available 02/27/2024 Are You Blind Or Do You Have Difficulty Seeing? No Information n ot available 02/27/2024 What Is Your Level Of Caffeine Consumption? Occasional [email or web address] Information not available 04/20/2024 In The 14 [...] Type Of Diet Are You Following? REGULAR [email or web address] Information n ot available 04/20/2024 Have You Ever Been Counseled For Unhealthy Alcohol Use? No Information not available 04/20/2024 Do You Have Smoke And Carbon Monoxide Detectors In Your Home? Yes [email or web address] Information not available 04/20/2024 Do You Use Any Illicit Or Recreational Drugs? No [email or web address] Information not available 04/20/2024 Do You Use Sunscreen Routinely? Yes [email or web address] Information not available 04/20/2024 Has Tobacco Cessation Counseling Been Provided? No [email or web address] Information not available 04/20/2024 Do You Or Have You Ever Used Any Other Forms Of Tobacco Or Nicotine? No [email or web address] Information not available 04/20/2024 Sex: Unknown Functional [...] 14:34:17 Maternal Grandmother Malignant tumor of ovary [email or web address] Not available 04/20 17:22:27 Paternal Grandfather Malignant tumor of colon Not available 2023 14:34:24 Paternal Grandfather Hypertensive disorder Not available 2023 14:34:37 Paternal Grandfather Mental disorder Not available 2023 14:35:05 Paternal Grandfather Chronic hepatitis [email or web address] Not available 03/2025 14:28:10 Mother Hypertensive disorder Not available 2023 14:34:37 Mother Mental disorder Not available 2023 14:35:05 Father Mental disorder Not available 2023 14:35:05 Unspecified Relation Seizure disorder FOB MOTHER [email or web address] Not available 10/08/2024 14:28:10 Notes:Maternal grandmother: Ovarian cancer, Cervical cancer Paternal [...] Recorded Time Tdap 08/13/2024 completed Phoebe mendez, [facility] 08/20/2024 14:17:19 Influenza, MDCK, trivalent, PF 08/13/2024 completed Phoebe mendez [facility] 08/20/2024 14:17:19 Past Encounters Encounter ID Performer Location Encounter Start Date Encounter Closed Date Diagnosis/Indication Diagnosis SNOMED-CT Code Diagnosis ICD10 Code Diagnosis Note [id number] Edith Singhtoma [place] [address] [address] 02/27/2024 11:43:38 02/27/2024 13:10:28 [id number] Cristian Byrd MD [place] [address] [address] 02/27/2024 14:13:42 02/27/2024 15:16:46 Routine care 415516819 Z34.90 this patient is a 28-year-ol d [...] week ultrasound . To begin routine care. [id number] Graciela Owen [place] [address],[place] [address] 03/08/2024 17:13:31 03/08/2024 17:57:51 screening 756424164 Z36.82 Z3A.13 Z36.87 [id number] Cristian Byrd MD [place] [address],[place] [address] 03/26/2024 09:29:33 03/26/2024 10:32:21 Routine care 523773194 Z34.90 [id number] Cristian Byrd MD [place] [address],[place] [address] 04/20/2024 15:26:30 04/21/2024 09:35:21 [id number] KESHA FIORE MD [place] [address],[place] [address] 04/20/2024 15:27:00 04/20/2024 17:56:47 Routine care 100763034 Z34.02 [id number] KESHA FIORE MD [place] [address],[place] [address] 05/21/2024 12:17:34 05/21/2024 14:26:36 Routine care 063838361 Z34.02 - continue PNV- 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) [id number] KESHA FIORE MD [place] [address],[place] [address] 06/18/2024 12:11:01 06/28/2024 04:03:48 Routine care 752104255 Z34.02 - continue PNV [id number] KESHA FIORE MD [place] [address],[place] [address] 07/02/2024 09:17:01 07/02/2024 10:04:18 Routine care 697962779 Z34.02 - continue PNV- 3h GTT today [id number] KESHA FIORE MD [place] [address],[place] [address] 07/16/2024 09:24:25 07/16/2024 11:05:08 Gestational diabetes mellitus 23490270 O24.419 Gestation period, 31 weeks 50243495 Z3A.31 - continue pNV [id number] Graciela Owen [place] [address],[place] [address] 08/02/2024 09:14:02 08/02/2024 10:35:44 Gestational diabetes mellitus 12471413 O24.410 Z3A.34 [id number] KESHA FIORE MD [place] [address],[place] [address] 08/04/2024 13:56:29 08/04/2024 15:06:05 Active or passive immunization 499631413 Z23 - Rx sent for RSV vaccine Gestationa l diabetes mellitus class A2 41200011 O24.414 - will start lantus at nighttime- weekly testing Gestation period, 34 weeks 55617821 Z3A.34 - continue PNV [id number] Phoebe Alex [place] [address],[place] [address] 08/13/2024 10:58:31 08/13/2024 13:02:17 Gestational diabetes mellitus 33589509 O24.419 [id number] KESHA FIORE MD [place] [address],[place] [address] 08/13/2024 10:58:55 08/13/2024 17:08:31 Gestational diabetes mellitus class A2 76372280 O24.414 - controlled on lantus 5u qHS- continue weekly testing- plan for delivery by 39w6d Gestation period, 35 weeks 96271277 Z3A.35 [id number] Edith Shabazz [place] [address],[place] [address] 08/13/2024 10:59:07 08/13/2024 16:49:41 Gestational diabetes mellitus 28008022 O24.414 Z3A.35 [id number] KESHA FIORE MD [place] [address],[place] [address] 08/20/2024 14:06:49 08/20/2024 15:06:34 Gestational diabetes mellitus class A2 88002244 O24.414 - controlled on lantus 5u qHS- continue weekly testing- plan for delivery by 39w6d Gestation period, 36 weeks 25352227 Z3A.36 - GBS collected today- continue PNV [id number] Cristian Byrd MD [place] [address],[place] [address] 08/26/2024 15:32:53 08/26/2024 16:23:00 Routine care 023922605 Z34.90 [id number] KESHA FIORE MD [place] [address],[place] [address] 09/03/2024 15:31:52 09/03/2024 18:32:23 [id number] KESHA FIORE MD [place] [address],[place] [address] 10/08/2024 14:27:40 10/08/2024 15:37:59 care 803801942 Z39.2 S/p 4 weeks ago here today for a visit.1. Patient recovering well2. Plans to continue formula feeding3. Interested in abstinence for contracept ion at this time. Risks, benefits, and alternativ es reviewed with the patient4. Patient instructed to follow up in 6 months for well woman exam unless need arises prior Health Concerns Section Related Observation LastModified by Organization Detai ls LastModified Time None Recorded Concern Status LastModified by Organization Details LastModified Time None Recorded Advance Directives Directive None Recorded Payers Encounter Date Sequence Insurance Name Policy Number Policy Mehta Covered Member ID Mehta Member ID Guarantor Name 08/13/2024 1 [facility] (MEDICAID HMO) [id number] [employer] [id number] [employer] 08/20/2024 1 [facility] (MEDICAID HMO) [id number] [employer] [id number] [employer] 08/26/2024 1 [facility] (MEDICAID HMO) [id number] [employer] [id number] [facility] 09/03/2024 1 [facility] (MEDICAID HMO) [id number] [facility] [id number] [facility] 10/08/2024 1 [facility] (MEDICAID HMO) [id number] [facility] [id number] [facility] Notes Date Note Type Note Provider Name and Address Organization Details Recorded Time 10/08/2024 text/html S/P on 09/07 a t 39 weeks gestation. was complicated by GDMA2. Complications with delivery: none. Patient denies any specific problems since delivery. Patient overall feeling well. Patient is formula feeding without problems. Has had a period. No bleeding currently. Bowel and bladder function are normal. Pap due 2024. Denies any signs or symptoms of depression. Is coping with parenting well. Patient has not been sexually active since delivery. Patient is not interested in contraception at this time. KESHA FIORE MD [address], [place], [address], [facility] 10/08/2024 15:33:33 OBGyn Episode Ob Episode Information Episode Created Date Number of Fetuses Patient Bloodtype Patient rh Status Prepregnancy Weight lbs Domestic Partner Domestic Partner Phone Father Name Spring Coverer Status 02/27/20 24 1 AB Negative 194 CLOSED Fetus Data First Name Last Name Admitted to NICU Weight (g) Sex Living Outcome Pediatric Complications Fetus ID Race Codes Race Delivery Type 3458.63 9 M [id number] Problems Problem Notes Problem Name Start Date End Date Resolution Snomed Code Not e Marijuana user [id number] +UDS Gestational diabetes mellitus 19598460 BS QID, serial orsizd13/4 - Lantus 5 units @HS Tomas Calculation [...] Weight in lbs Pre/Post Dialysis Refused Weight 194.900208283697 BP Diastolic BP Location Tested BP Systolic [...] Type Weight in lbs Pre/Post Dialysis Refused 192.344662174979 BP Diastolic BP Location Tested BP Systolic [...] Type Weight in lbs Pre/Post Dialysis Refused 196.299268497750 BP Diastolic BP Location Tested BP Systolic [...] Type Weight in lbs Pre/Post Dialysis Refused 203.27111477042 BP Diastolic BP Location Tested BP Systolic BP Type 69 L arm 100 sitting Fetus Heart Rate Present A 140 Fetus Movement A Yes Comments Good movement. No cram ping or bleeding. Discussed labs and GCT for next visit, will go to [place] for labs and Rhogam. Carpal tunnel improving. 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 RTC 4 weeks. Flowsheet Date 06/18/2024 Newton Score Blood Edema Fundus Height Fundus Units Glucose Ketones Leukocytes Nitrite Labor Signs Protein Cervic Dilation Cervic Effacement Cervic Station neg none none trace Type Weight in lbs Pre/Post Dialysis Refused 213.589360387395 BP Diastolic BP Location Tested BP Systolic [...] Weight in lbs Pre/Post Dialysis Refused Weight 214.520985903538 BP Diastolic BP Location Tested BP Systolic [...] Weight in lbs Pre/Post Dialysis Refused Weight 215.068256754016 BP Diastolic BP Location Tested BP Systolic [...] Weight in lbs Pre/Post Dialysis Refused Weight 224.982894370786 BP Diastolic BP Location Tested BP Systolic [...] Weight in lbs Pre/Post Dialysis Refused Weight 223.401137755074 BP Diastolic BP Location Tested BP Systolic [...] Weight in lbs Pre/Post Dialysis Refused Weight 227.7007153304 BP Diastolic BP Location Tested BP Systolic BP Type 76 L arm 114 sitting Fetus Heart Rate Present A Present Fetus Movement A Yes Comments Good movement. No ctx, LOF, VB. NST/BPP at [place], 06/10. MIL for GDMA2 on 09/06 in PM. GBS collected today. RTC 1 week. Flowsheet Date 08/26/2024 Newton Score Blood Edema Fundus Height Fundus Units Glucose Ketones Leukocytes Nitrite Labor Signs Protein Cervic Dilation Cervic Effacement Cervic Station Type Weight in lbs Pre/Post Dialysis Refused 229.681200365164 BP Diastolic BP Location Tested BP Systolic [...] Estim ated Date of Delivery false Thalassemia (Khmer, Iraqi, Mediterranean, Or Background): MCV < 80 false Neural Tube Defect (Meningomyelocele, Spina Bifi da, Or Anencephaly) false Congenital Heart Defect false Down Syndrome false Fernando-Sachs (eg, Moravian, Cajun, Bulgarian-German) f alse Genna Disease false Sickle Cell Disease Or Trait () false Hemophilia Or Other Blood Disorders false Muscular Dystrophy false Cystic Fibrosis false Chaumont's Chorea false Intellectual Disability/Autism false If Yes, [...] Post Complications Tubal Sterilization Discharge Date Comments 5 39.1 Kesha Fiore MD Discharge Information Feeding Method Contraceptive Method Maternal HG B and HCT Levels
[2024-12-06] MEDS: KETOROLAC 15 MG/ML VIAL (*BKC) IV PUSH (13:34)
== END 2024-12-06 14:11 | disposition home or self-care (01) ==
PROVIDERS: Emergency Provider Physician Assistant; PCP Internal Medicine
DX: K63.89 Other specified diseases of intestine (principal); Z86.2 Personal history of diseases of the blood and blood-forming organs and certain disorders involving the immune mechanism; Z79.4 Long term (current) use of insulin; R93.2 Abnormal findings on diagnostic imaging of liver and biliary tract
CPT/HCPCS: 36415; 74177; 80053; 81001; 81025; 83690; 85025; 87086; 96374; 99284; J1885; Q9967